=== PATIENT | female | born 1955 | race Caucasian/White ===

== ENCOUNTER 2019-01-29 11:17 | Outpatient (REF) | payer MEDICARE, BC, SELFPAY ==
[2019-01-29 13:28] LABS: ALT 40 U/L (12-78); AST 20 U/L (15-37); Albumin 4.1 g/dL (3.4-5.0); Alkaline Phosphatase 80 U/L (46-116); Anion Gap 11.1 mmol/L (3-11); BUN 18 mg/dL (7-18); Bilirubin, Total 0.3 mg/dL (0.2-1.0); CO2 25.9 mmol/L (21.0-32.0); CREATININE 0.85 mg/dL (0.55-1.02); Calcium 9.1 mg/dL (8.5-10.1); Chloride 102 mmol/L (98-107); Glucose 108 mg/dL (70-100); Potassium 4.6 mmol/L (3.5-5.1); Sodium 139 mmol/L (136-145); Total Protein 7.3 g/dL (6.4-8.2)
[2019-01-30 10:30] LABS: Hepatitis C Ab w Rflx HCV PCR Negative (NEGAT)
== END 2019-01-29 11:37 ==
LOC: NCHCN 11:17
PROVIDERS: Visit Provider Nurse Practitioner Family
DX: I10 Essential (primary) hypertension (principal); R73.9 Hyperglycemia, unspecified; R13.10 Dysphagia, unspecified; K30 Functional dyspepsia; Z11.59 Encounter for screening for other viral diseases
CPT/HCPCS: 80053; 86803

== ENCOUNTER 2019-01-29 11:54 | Outpatient (REF) | payer MEDICARE, BC, SELFPAY ==
--- NOTE | 2019-01-29 10:45 | PAPFT_PTH ---
PATIENT: Bev Villela LOC: [facility]#:[id number] AGE/SX: 63/F ROOM: RE01/29/[address]: Rena Hinds : 1955 BED: DIS: 01/29/2019 SPEC #: [id number] RECD: 01/30/19 12:54 STATUS: RAMA REQ #: [id number] SHYANNE: 01/29/19 10:[address]: Rena Hinds DEPT: [facility] Cytology RECD BY: Dianna Nguyen ENTERED: 01/30/19 12:55 SP TYPE: PAPFT OTHR DR: Kadi Rivas Tissues: 1 - CX/ENDOCX FOR PAP SMEARS Procedures: PAP THIN PREP/[facility] Screening Comments: [id number]
== END 2019-01-29 12:14 ==
LOC: NCHCN 11:54
PROVIDERS: Visit Provider Nurse Practitioner Family
DX: Z12.4 Encounter for screening for malignant neoplasm of cervix (principal); Z01.419 Encounter for gynecological examination (general) (routine) without abnormal findings
CPT/HCPCS: 88142

== ENCOUNTER 2019-02-19 00:52 | Outpatient (CLI) | payer MEDICARE, BC, SELFPAY ==
--- NOTE | 2019-02-19 15:00 | DI.DEXA_ITS ---
SYMPTOM/DIAGNOSIS: ASYMPTOMATIC POSTENOPAUSAL STATUS Z78.0 DEXA SCAN: Routine examination. Lateral films show no compression deformities. Evaluation of the left hip shows a total T-score of 0 and a Z-score of 1.3 Evaluation of the lumbar spine shows a total T-score of 0.6 and a Z-score of 2.4. These are within normal limits. No evidence of osteoporosis is seen.
--- NOTE | 2019-02-19 15:17 | DI.MAMMO_ITS ---
SYMPTOMS/DIAGNOSIS: SCREENING, Z12.39 MAMMOGRAMS: Mammograms were interpreted according to the usual protocol including computer analysis with CAD system, tomosynthesis and C view imaging. The breast tissue is of moderate radiodensity. There is no dominant mass. There are no suspicious calcifications and there has been no significant interval change when compared with the previous images. SUMMARY: No evidence of malignancy, category 1. Yearly screening mammography is recommended. Breast density category B. SA ASSESSMENT OF FINDINGS: Negative. Category 1. Patient will receive a letter notifying them of these results. BI-RADS category B. There are scattered areas of fibroglandular density.
== END 2019-02-19 01:12 ==
PROVIDERS: Visit Provider Nurse Practitioner Family
DX: Z12.31 Encounter for screening mammogram for malignant neoplasm of breast (principal); Z78.0 Asymptomatic menopausal state; Z13.820 Encounter for screening for osteoporosis
CPT/HCPCS: 77063; 77067; 77080

== ENCOUNTER 2019-07-10 07:13 | Day surgery (SDC) | payer MEDICARE, BC, SELFPAY ==
[2019-07-10 07:15] VITALS: BP 147/77; PULSE 102; RESP 18; TEMP 36.6; O2SAT 97
[2019-07-10] MEDS: Lactated Ringers 1,000 ML 80 ML IV (07:51)
[2019-07-10] MEDS: ceFAZolin 1 GM/50 ML BAG IVPB (09:09)
[2019-07-10] MEDS: Bupivacaine 0.5% Pres-Free 30 ML VIAL (09:26)
[2019-07-10] MEDS: Lidocaine 1% Pres-Free 5 ML VIAL ×2 (09:26→09:45)
--- NOTE | 2019-07-10 10:22 | W.PM.DSUDISC ---
Discharge Plan Disposition Patient Disposition: HOME Condition: Good Discharge Details Reason For Visit: correction right bunion and hammertoe 2nd digit rt Attending Provider: Isreal Argueta Primary Care Provider: Rena Hinds Home Meds and New Rx's Prescriptions: New ibuprofen 600 mg tablet 600 mg PO Q6H PRN (Reason: post op pain) Qty: 60 RF: 0 hydrocodone-acetaminophen 5-325 mg tablet 1 tab PO Q6H PRN (Reason: pain) Qty: 7 RF: 0 Continued acetaminophen [Tylenol] 325 MG tablet 650 mg PO TID PRNRF: 0 chlorthalidone 25 MG tablet 25 mg PO DAILY RF: 0 simvastatin 20 MG tablet 20 mg PO HS RF: 0 calcium carbonate 500 MG tablet,chewable 2 - 3 tab.chew PO HS PRNRF: 0 ibuprofen 200 MG tablet 800 mg PO TID PRNRF: 0 multivitamin 1 EACH capsule 1 cap PO DAILY RF: 0 mometasone [Elocon] 45 GM cream 1 applic Topical DAILY PRNRF: 0 hydrocodone-acetaminophen 1 TAB tablet 1 - 2 tab PO DIRECTED PRN (Reason: Pain) RF: 0 Discharge Instructions Activity:: Elevate Remove Dressings/Wound Care:: Do Not Remove Shower/Bathe:: Cover Diet:: Normal Diet Discharge Orders Discharge Orders: Discharge Order (Routine); Ordered 07/10/19 Ordered By: Isreal Argueta DS: Diagnosis Discharge Diagnosis (1) Hallux rigidus of right foot: Start date: 07/10/19 Start time: 10:23 Status: Acute
[2019-07-10 11:07] VITALS: BP 125/61; PULSE 69; RESP 16; TEMP 36.3; O2SAT 98
--- NOTE | 2019-07-10 12:15 | ROE_ITS ---
DATE OF PROCEDURE: July 10, 2019 PREOPERATIVE DIAGNOSIS: 1. End-stage degenerative arthritis right first MPJ. 2. Right second hammertoe deformity. POSTOPERATIVE DIAGNOSIS: Same. PROCEDURE: 1. Watson-type bunionectomy with .062 K-Wire fixation. 2. Arthroplasty right second toe with .045 K-Wire fixation. SURGEON: Jessika YoungPMegan. ANESTHESIA: General anesthesia with local block of the first and second rays utilizing 0.5% Marcaine and 1% Lidocaine plain, total 10 cc's of Marcaine and 5 cc's of Lidocaine. ANESTHESIA PROVIDER: Judy Harris CRNA OPERATIVE INDICATIONS: 64-year-old female with progressive pain associated with right hallux limitus -rigidus deformity and second digit hammertoe. Pain has been experienced in shoe gear, interfering w ith comfortable ambulation. Non-surgical treatments have failed to provide relief of symptoms. She understands risks and complications of surgery pertaining to pain, scarring, infection, stiffness of the joints, difficulty with the hardware. All questions have been answered. Informed consent has be en obtained. No promises made to the final outcome of surgery. REPORT OF OPERATION: Bev was brought to the operative suite and placed in the supine position, r ight foot prepped and draped in the usual sterile podiatric fashion. A time-out was performed; all m embers of the surgical team in agreement with the patient, procedures, allergies, etc. Attention was directed to the right foot, which had an ankle tourniquet inflated 250 mmHg and a 5 cm midline incision was placed over the first MPJ. The incision was deepened in controlled depth fashio n; hemostasis acquired with electrocautery. Dissection was carried down to the joint capsule. A antonio aidan midline incision was made just medial to the extensor hallucis longus tendon. The joint capsule was retracted medially and laterally. Extensive erosive changes are noted throughout the articular s urface of the first MPJ with dorsal, medial and lateral hyperostoses seen on both sides of the joint. This joint was completely destroyed. With power instrumentation approximately 1 cm of bone from th e base of the proximal phalanx was resected. The medial, lateral and dorsal exostoses around the fir st metatarsal head were then resected. All rough and bony edges were rasped smooth. The hallux was in a relaxed position and looked good. The digit was fixated with a .062 K-Wire in retrograde fashio n. Copious irrigation was performed. The joint capsule was repaired with simple interrupted suture #3-0 Vicryl. The subcutaneous repaired with simple interrupted suture #4-0 Vicryl. The skin was coa pted with continuous running sutures #4-0 Monocryl. Attention was now directed to the second toe where two converging, semi-elliptical incisions were harshil emily over the PIPJ. A skin wedge was removed and discarded. Soft tissue mobilization was performed. A transverse tenotomy capsulotomy performed at the PIPJ level with a #15 scalpel. The medial and la teral collaterals were released. The head of the proximal phalanx was delivered into the wound. Deg enerative changes of this joint were appreciated. With power instrumentation the head of the proxima l phalanx was resected at its surgical neck. All rough and bony edges were rasped smooth. Soft tiss ue dissection as then further performed to relax the digit at the MPJ. The wing and sling apparatus was released, both dorsally and plantarly. The digit was now rectus. A .045 K-Wire was used in retr ograde fashion to stabilize the second toe. The wound was copiously irrigated. The extensor tendon was repaired with #3-0 Vicryl end-to-end and the skin was coapted with simple interrupted suture #4-0 nylon. Xeroform, gauze fluff was applied to the incisions. Betadine ointment and gauze dressings o miguel the K-Wires. The tourniquet was released with vascularity returning to all toes immediately. Osmany sherman left the OR with vital signs stable, vascular status intact. She will be followed by me in the office next week. cc: Rena Hinds M.D.
== END 2019-07-10 11:21 | disposition home or self-care (01) ==
PROVIDERS: PCP Nurse Practitioner Family; Visit Provider Podiatrist
PROC: (CPT 28292; principal; 2019-07-10 08:15)
PROC: (CPT 28292; 2019-07-10 08:15)
DX: M20.41 Other hammer toe(s) (acquired), right foot (principal); M20.21 Hallux rigidus, right foot; M19.071 Primary osteoarthritis, right ankle and foot; I10 Essential (primary) hypertension; M21.611 Bunion of right foot
CPT/HCPCS: 28292; 28285; J0690; J1100; J1885; J2250; J2405

== ENCOUNTER 2019-10-16 06:12 | Day surgery (SDC) | payer MEDICARE, BC, SELFPAY ==
[2019-10-16 06:30] VITALS: BP 145/83; PULSE 73; RESP 12; TEMP 36.7; O2SAT 97
[2019-10-16] MEDS: Lactated Ringers 1,000 ML 80 ML IV (06:58)
--- NOTE | 2019-10-16 07:17 | W.PM.HP.N ---
Date of service: 10/16/19 Time of Service: 07:18 History of Present Illness History of Present Illness Chief Complaint: Painful left bunion deformity Narrative: 64-year-old female with progressive pain affecting the left bunion joint causing discomfort in shoe gear interfering with daily activities. She has had previous surgical intervention of this joint with subsequent progression of pain and deformity. She is seeking surgical relief as nonsurgical options have failed to provide improvement in symptomatology. [facility] Medical History Arthritis (Acute) Carotid atherosclerosis (Acute) Dysarthria (Acute) Dyspepsia (Acute) Eczema (Acute) High cholesterol (Chronic) Hypertension (Chronic) Low back pain (Acute) Obesity (Chronic) Pain in right toe(s) (Acute) Surgical History Colonoscopy - IV Sedation (04/20/16) History of arthroscopic knee surgery (Chronic) bilat knee arthoscopys, removal loose bodies left knee. History of foot surgery (Acute) left great toe repair x2 History of shoulder surgery (Chronic) removal neurofibro right shoulder Social History Smoking/Tobacco Use Status: Former Tobacco Use Quit Date: 09/09/79 Drug use: Never Substance use type: does not use Do you feel safe at home: Yes Do you feel safe in your relationship?: Yes Meds Home Medications and Allergies Home Medications Medication Instructions Recorded Confirmed Type acetaminophen [Tylenol] 650 mg PO TID PRN 09/28/13 10/16/19 History calcium carbonate 2 - 3 tab.chew PO HS PRN 09/28/13 10/16/19 History chlorthalidone 25 mg PO HS 09/28/13 10/16/19 History ibuprofen 800 mg PO TID PRN 09/28/13 10/16/19 History multivitamin 1 cap PO DAILY 09/28/13 10/16/19 History simvastatin 20 mg PO HS 09/28/13 10/16/19 History aspirin [Aspirin Low Dose] 81 mg PO DAILY 10/16/19 10/16/19 History Allergies Allergy/AdvReac Type Severity Reaction Status Date / Time codeine AdvReac Intermediate Nausea Unverified 10/16/19 06:25 Exam Narrative Exam Narrative: Proper appears in her usual state of health. Head is normocephalic Eyes PERRLA Hearing is adequate Uvula is midline and airway looks assessable Heart had regular rate and rhythm no gallops rubs or murmurs were detected Lung fish are clear Abdomen was soft and nontender, bowel sounds appreciated Peripheral pulses at the ankle are palpable minus 2 out of 4 bilaterally. Capillary fill time is under 3 seconds to all toes. No peripheral edema. Muscle groups of 5 out of 5 bilaterally. Skeletal exam reveals end-stage degenerative arthritis affecting the left first MPJ. There is marked sensitivity around the joint with significant loss of dorsiflexion with crepitance noted. The remaining forefoot joints were otherwise grossly unremarkable Neurologically toes are downgoing there are no focal deficits appreciated Impressions: Hallux limitus, end-stage arthrosis first MPJ left foot Plan: Bev will be brought to the OR for surgical intervention on the left first MPJ with a planned Watson type bunionectomy. Potential risks and complications have been disclosed with all questions been answered. She understands risks of pains, scarring, infection, shortening of the great toe, floating of the digit the potential for additional revisional procedures. Informed consents been obtained no promises made to final outcome of surgery. Results Last Vital Signs Temp 36.7 C 10/16/19 06:30 Pulse 73 10/16/19 06:30 Resp 12 10/16/19 06:30 BP 145/83 H 10/16/19 06:30 Pulse Ox 97 10/16/19 06:30
[2019-10-16] MEDS: ceFAZolin 1 GM/50 ML BAG IVPB (07:35)
[2019-10-16] MEDS: Bupivacaine 0.5% Pres-Free 30 ML VIAL (07:52)
[2019-10-16] MEDS: Lidocaine 1% Multi-Dose 50 ML VIAL (07:53)
[2019-10-16] MEDS: Dexamethasone 4 MG/ML VIAL (07:53)
--- NOTE | 2019-10-16 08:39 | PDOC.DSDIS_ITS ---
Discharge Plan Disposition Patient Disposition: HOME Condition: Good Discharge Details Reason For Visit: Correction symptomatic left hallux limitus deformi Attending Provider: Isreal rAgueta Primary Care Provider: Rena Hinds Home Meds and New Rx's Prescriptions: New hydrocodone-acetaminophen [[place]chenry] 5-325 mg tablet 1 tab PO Q6H PRN (Reason: pain) Qty: 7 RF: 0 Continued acetaminophen [Tylenol] 325 MG tablet 650 mg PO TID PRNRF: 0 chlorthalidone 25 MG tablet 25 mg PO HS RF: 0 simvastatin 20 MG tablet 20 mg PO HS RF: 0 calcium carbonate 500 MG tablet,chewable 2 - 3 tab.chew PO HS PRNRF: 0 ibuprofen 200 MG tablet 800 mg PO TID PRNRF: 0 multivitamin 1 EACH capsule 1 cap PO DAILY RF: 0 aspirin [Aspirin Low Dose] 81 mg Tablet,Delayed Release (Dr/Ec) 81 mg PO DAILY RF: 0 Discharge Instructions Activity:: Elevate Remove Dressings/Wound Care:: Do Not Remove Shower/Bathe:: Cover Diet:: Normal Diet Discharge Orders Discharge Orders: Discharge Order (Routine); Ordered 10/16/19 Ordered By: Isreal Argueta DS: Diagnosis Discharge Diagnosis (1) Hallux limitus of left foot: Status: Acute
[2019-10-16 09:26] VITALS: BP 151/81; PULSE 60; RESP 16; TEMP 36.4; O2SAT 95
--- NOTE | 2019-10-16 10:59 | ROE_ITS ---
DATE OF PROCEDURE: October 16, 2019 PREOPERATIVE DIAGNOSIS: Painful left hallux limitus deformity. POSTOPERATIVE DIAGNOSIS: Same. PROCEDURE: Watson bunionectomy with .062 K-Wire fixation. SURGEON: Isreal Argueta D.P.M. ANESTHESIA: IV General. ANESTHESIA PROVIDER: Lester Velazquez CRNA OPERATIVE INDICATIONS: 64-year-old female with progressive pain associated with endstage degenerativ e arthrosis of the first MPJ left foot. Nonoperative treatments have failed to provide sufficient re lief of symptoms. The patient understands risks and complications of surgery pertaining to pain, sca rring, infection, shortening of the toe, floating of the great toe, the potential for revisional proc edures. Informed consent has been obtained. No promises made to the final outcome of surgery. REPORT OF OPERATION: Bev was brought to the operative suite, placed in the supine position, wher e the left foot is prepped and draped in the usual sterile podiatric fashion. Anesthesia being obtai eric, the left foot was exsanguinated, a well-padded ankle tourniquet inflated to 250 mmHg. All of th is was performed after a time-out was performed with the surgical team. Attention was now directed to the first MPJ of the left foot where a dorsal incision was made over a previous cicatrix just medial to the EHL tendon. There was a fair amount of adhesion and scar tissue which was gently dissected and tissue planes recreated. Dissection was carried down to the joint ca psule. The capsule was incised dorsal medially and the tissue reflected medially and laterally. The joint line was visualized and severe arthrosis noted. There was minimal motion across the joint. T he joint was incised. There was no articular cartilage remaining. With a power saw approximately 1 cm of bone was resected from the base of the proximal phalanx. This was removed from the operative f ield. The medial, lateral and dorsal hyperostoses of the first metatarsal head were then resected. All rough and bony edges were rasped smooth. Copious irrigation was performed. Sufficient resection of bone was evaluated and I was satisfied. The great toe was fixated with a .062 K-Wire in retrogra de fashion. Once again the wound was copiously irrigated. The capsule was repaired with simple inte rrupted suture #3-0 Vicryl. The subcutaneous layer was repaired with simple interrupted suture #4-0 Vicryl and the skin was coapted with continuous running suture #4-0 Monocryl. Mastisol, half-inch St nimo-Strips applied. The first MPJ region was infused with 5 mg of dexamethasone phosphate. Xeroform , gauze fluff compression dressings were reapplied. The tourniquet was released at forty-five minute s with vascularity returning immediately to all toes. Bev left the OR with vital signs stable, v ascular status intact. She will be followed by me in the office next week.
== END 2019-10-16 09:55 | disposition home or self-care (01) ==
PROVIDERS: PCP Nurse Practitioner Family; Visit Provider Podiatrist
PROC: (CPT 28292; principal; 2019-10-16 07:30)
DX: M20.5X2 Other deformities of toe(s) (acquired), left foot (principal); M79.672 Pain in left foot
CPT/HCPCS: 28299; NC; J0131; J0690; J1100; J1200; J1885; J2001; J2250; J2405; J3010

== ENCOUNTER 2020-08-19 01:39 | Outpatient (CLI) | payer MEDICARE, BC, SELFPAY ==
--- NOTE | 2020-08-19 | DI.US_ITS ---
EXAM: US CAROTID CLINICAL HISTORY: F/U BILAT CAROTID ARTERY ATHEROSCLEROSIS, I65.23, HYPERTENSION. TECHNIQUE: Ultrasound carotids performed using grayscale, color-flow, and spectral Doppler imaging. COMPARISON: US CAROTID ULTRASOUND from 10/09/2017 FINDINGS: RIGHT CAROTID ARTERY: Plaque: Small focus of noncalcified plaque in the right common carotid bulb. Minimal plaque elsewher e. Velocity elevation: None. LEFT CAROTID ARTERY: Plaque: Minimal calcific plaque in the common carotid bulb.. Velocity elevation: None. VERTEBRAL ARTERIES: Antegrade flow. Measurements: R Bulb: 72.7cm/s PS / 19cm/s ED R CCA: 91.7cm/s PS / 23.1cm/s ED R ECA: 91.7cm/s PS / 18.2cm/s ED R ICA Prox: 62cm/s PS /17.4cm/s ED R ICA Mid: 104.9cm/s PS / 33.1cm/s ED R ICA Distal: 104.1cm/s PS /37.2cm/s ED R Vert: 52.1cm/s PS / 15.7cm/s ED R SVR: 1.1 R DVR: 1.54 L Bulb: 57.2cm/s PS /16.1cm/s ED L CCA: 86.8cm/s PS / 24.4cm/s ED L ECA: 71.3cm/s PS /12.9cm/s ED L ICA Prox:52.1cm/s PS / 18.6cm/s ED L ICA Mid: 78.4cm/sPS / 28.9cm/s ED L ICA Distal: 87.4cm/s PS / 32.8cm/s ED L Vert: 71.3cm/s PS / 21.2cm/s ED L SVR: 0.88 L DVR: 1.16 Incidental 12 millimeter right thyroid nodule was noted, having a benign spongiform appearance. IMPRESSION: Mild bilateral plaque in the common carotid bulbs. No evidence for hemodynamically significant carot id stenosis. Criteria for Carotid Stenosis: Normal: ICA PSV <125 cm/s no plaque or intimal thickening is visible. <50% stenosis: ICA PSV <125 cm/s and plaque or intimal thickening is visible. 50-69% stenosis: ICA PSV is 125-250 cm/s and plaque is visible. >70% stenosis to near occlusion: ICA PSV >250 cm/s with visible plaque and luminal narrowing. DATA REPOSITORY:
--- NOTE | 2020-08-19 12:46 | DI.MAMMO_ITS ---
EXAM: MAMMO SCREENING CLINICAL HISTORY: SCREENING,Z12.39 TECHNIQUE: Mammograms were interpreted according to the usual protocol including computer analysis w [employer] CAD system, tomosynthesis and C-view imaging. COMPARISON: 2010 through 2018 FINDINGS: The breasts are composed of heterogeneously dense fibroglandular densities, Breast Density category C . No suspicious masses or suspicious microcalcifications are seen. No skin thickening or abnormal axillary lymph nodes are seen. There has been no significant change from prior exams. IMPRESSION: BI-RADS Category 1, Negative mammogram. Yearly screening mammography is recommended. Breast Density Category C, heterogeneously Dense. The mammogram demonstrates the patient's breast tissue is dense. Dense breast tissue is very common a nd is not abnormal but dense breast tissue can make it harder to find cancer on a mammogram. Also, de nse breast tissue may increase breast cancer risk. This information about the result of the mammogram report was provided to the patient to raise their awareness. Use this report when you speak with the patient about their risks for breast cancer, which includes their family history. At that time, you may recommend additional screening tests (Ultrasound or MRI) as they might be useful based on their r isk. A negative radiographic report should not delay biopsy if a dominant or clinically suspicious mass is present. Up to ten percent of cancers are not identified on mammography. A negative report may reinforce clinical impression. Adenosis and dense breasts may obscure an underlying neoplasm. False positive reports average 6 to 10%.
== END 2020-08-19 01:59 ==
PROVIDERS: PCP Nurse Practitioner Family; Visit Provider Nurse Practitioner Family
DX: Z12.31 Encounter for screening mammogram for malignant neoplasm of breast (principal); I65.23 Occlusion and stenosis of bilateral carotid arteries; I10 Essential (primary) hypertension
CPT/HCPCS: 77063; 77067; 93880

== ENCOUNTER 2020-08-22 15:16 | Outpatient (REF) | payer MEDICARE, BC, SELFPAY ==
[2020-08-22 22:12] LABS: TSH 1.49 uIU/mL (0.36-3.74)
[2020-08-22 22:37] LABS: FREE T4 1.05 ng/dL (0.76-1.46)
[2020-08-23 17:05] LABS: T3,Free 4.6 pg/mL (2.8-5.3)
[2020-08-28 17:45] LABS: Thyroglobulin Antibody 19 U/mL (<=60); Thyroperoxidase Antibody 35 U/mL (<=60)
== END 2020-08-22 15:36 ==
LOC: NCHCN 15:16
PROVIDERS: PCP Nurse Practitioner Family; Visit Provider Nurse Practitioner Family
DX: E04.1 Nontoxic single thyroid nodule (principal)
CPT/HCPCS: 86376; 84439; 84443; 84481

== ENCOUNTER 2020-10-11 02:28 | Outpatient (CLI) | payer MEDICARE, BC, SELFPAY ==
[2020-10-12 12:34] LABS: COVID-19 RT-PCR UVMMC Result Negative (Negative)
== END 2020-10-11 02:29 | disposition home or self-care (01) ==
LOC: LBO 02:29
PROVIDERS: PCP Nurse Practitioner Family; Visit Provider Podiatrist
DX: Z11.52 Encounter for screening for COVID-19 (principal); Z01.818 Encounter for other preprocedural examination
CPT/HCPCS: U0003; U0005

== ENCOUNTER 2020-10-14 06:15 | Day surgery (SDC) | payer MEDICARE, BC, SELFPAY ==
[2020-10-14 06:22] VITALS: BP 131/68; PULSE 75; RESP 16; TEMP 36.6; O2SAT 97
[2020-10-14] MEDS: Lactated Ringers 1,000 ML 80 ML IV (06:55)
--- NOTE | 2020-10-14 07:04 | W.PM.HP.N ---
Date of service: 10/14/20 Time of Service: 07:04 History of Present Illness History of Present Illness Chief Complaint: Symptomatic left second hammertoe deformity Narrative: 65-year-old female with increasing pain associated with a hammertoe on the left second digit which is now interfering with comfortable shoe gear and ambulatory activities. Nonoperative treatments have failed to provide sufficient relief of symptoms. [facility] Medical History Arthritis Carotid atherosclerosis Dysarthria Dyspepsia Eczema High cholesterol Hypertension Low back pain Obesity Pain in right toe(s) Surgical History Colonoscopy - IV Sedation (04/20/16) History of arthroscopic knee surgery bilat knee arthoscopys, removal loose bodies left knee. History of foot surgery left great toe repair x2 History of shoulder surgery removal neurofibro right shoulder Social History Smoking/Tobacco Use Status: Former Tobacco Use Quit Date: 09/09/79 Smoking risk assessment performed?: Yes Drug use: Never Substance use type: does not use Do you feel safe at home: Yes Do you feel safe in your relationship?: Yes Meds Home Medications and Allergies Home Medications Medication Instructions Recorded Confirmed Type acetaminophen [Tylenol] 650 mg PO TID PRN 09/28/13 10/14/20 History calcium carbonate 2 - 3 tab.chew PO HS PRN 09/28/13 10/12/20 History ibuprofen 800 mg PO TID PRN 09/28/13 10/14/20 History multivitamin 1 cap PO DAILY 09/28/13 10/14/20 History simvastatin 20 mg PO HS 09/28/13 10/14/20 History aspirin [Aspirin Low Dose] 81 mg PO DAILY 10/16/19 10/14/20 History Tumeric 2,000 mg PO DAILY 10/12/20 10/14/20 History betamethasone dipropionate 1 applic TOPICAL BID 10/12/20 10/14/20 History cholecalciferol (vitamin D3) 50 mcg PO DAILY 10/12/20 10/14/20 History [Vitamin D3] famotidine 20 mg PO HS 10/12/20 10/14/20 History fluticasone propionate 1 spray INTRANASAL BID 10/12/20 10/14/20 History lisinopril 10 mg PO HS 10/12/20 10/14/20 History loratadine [Claritin] 10 mg PO DAILY 10/12/20 10/14/20 History Allergies Allergy/AdvReac Type Severity Reaction Status Date / Time codeine AdvReac Intermediate Nausea Unverified 10/14/20 06:39 Exam Narrative Exam Narrative: Very pleasant 65-year-old female in no acute distress for surgical repair of her left second hammertoe. Head is normocephalic Eyes PERRLA Hearing is adequate Uvula is midline Heart had regular rate and rhythm no gallops rubs or murmurs were detected Lung fish were clear Abdomen was soft, nontender, bowel sounds x4 Peripheral pulses are palpable at the ankle, no peripheral edema, capillary fill under 3 seconds to all toes Muscle groups are 5 out of 5 bilaterally Skeletal exam is remarkable for flexion contracture of the left second toe consistent with hammertoe. Pain is appreciated at the PIPJ dorsally as well as at the distal tip of the digit. The digit is semireducible. Neurologically she is grossly intact. Impressions: Symptomatic left second hammertoe Plan: Bev is being brought to the OR for surgical repair of her left second digit. She understands risk and complications of surgery pertaining to pain, scarring, infection, over or under correction of deformity with the potential for revisional procedures. No promises have been made to final outcome of surgery. Results Last Vital Signs Temp 36.6 C 10/14/20 06:22 Pulse 75 10/14/20 06:22 Resp 16 10/14/20 06:22 BP 131/68 10/14/20 06:22 Pulse Ox 97 10/14/20 06:22 COVID-19 Screening Have you, or household traveled for leisure in last 14 days?: No Had IN PERSON contact w/suspected or confirmed C-19 person: No
[2020-10-14] MEDS: ceFAZolin 1 GM/50 ML BAG IVPB (07:33)
[2020-10-14] MEDS: Bupivacaine 0.5% Pres-Free 30 ML VIAL (07:53)
[2020-10-14] MEDS: Lidocaine 1% Pres-Free 5 ML VIAL (07:53)
[2020-10-14] MEDS: Dexamethasone 4 MG/ML VIAL (08:20)
--- NOTE | 2020-10-14 08:24 | W.PM.DSUDISC ---
Discharge Plan Disposition Patient Disposition: HOME Condition: Good Discharge Details Reason For Visit: Correction left second hammertoe deformity Attending Provider: Isreal Argueta Primary Care Provider: Rena Hinds Home Meds and New Rx's Prescriptions: New ibuprofen 600 mg tablet 600 mg PO Q6H PRN (Reason: pain and inflammation) Qty: 60 RF: 0 hydrocodone-acetaminophen [[place]] 5-325 mg tablet 1 tab PO Q6H PRN (Reason: pain) Qty: 9 RF: 0 Continued acetaminophen [Tylenol] 325 MG tablet 650 mg PO TID PRNRF: 0 simvastatin 20 MG tablet 20 mg PO HS RF: 0 calcium carbonate 500 MG tablet,chewable 2 - 3 tab.chew PO HS PRNRF: 0 ibuprofen 200 MG tablet 800 mg PO TID PRNRF: 0 multivitamin 1 EACH capsule 1 cap PO DAILY RF: 0 aspirin [Aspirin Low Dose] 81 mg Tablet,Delayed Release (Dr/Ec) 81 mg PO DAILY RF: 0 betamethasone dipropionate 0.05 % cream 1 applic TOPICAL BID RF: 0 fluticasone propionate 50 mcg/actuation spray,suspension 1 spray INTRANASAL BID RF: 0 loratadine [Claritin] 10 mg Tablet 10 mg PO DAILY RF: 0 cholecalciferol (vitamin D3) [Vitamin D3] 50 mcg (2,000 unit) Tablet 50 mcg PO DAILY RF: 0 Tumeric 1,000 mg tablet 2,000 mg PO DAILY RF: 0 famotidine 20 mg tablet 20 mg PO HS RF: 0 lisinopril 10 mg tablet 10 mg PO HS RF: 0 Discharge Instructions Activity:: Elevate Remove Dressings/Wound Care:: Do Not Remove Shower/Bathe:: Cover Diet:: Normal Diet Discharge Orders Discharge Orders: Discharge Order (Routine); Ordered 10/14/20 Ordered By: Isreal Argueta DS: Diagnosis Discharge Diagnosis (1) Hammertoe of second toe of left foot: Status: Acute
--- NOTE | 2020-10-14 08:34 | ROE_ITS ---
Date of service: 10/14/20 Time of Service: 08:34 Operative Note Operative Note DATE OF PROCEDURE: 10/14/20 PRE-OP DIAGNOSIS: Hammertoe left second digit POST-OP DIAGNOSIS: same PROCEDURE: Peg and hole arthrodesis left second toe SURGEON: Isreal Argueta ANESTHESIA: CATARINO ESTIMATED BLOOD LOSS: 0 PATHOLOGY: none sent TOURNIQUET TIME: 24 COMPLICATIONS: None Patient was transported to: same day Patient's condition: stable Indications: 65-year-old female with pain associated with a left second hammertoe deformity. Pain is interfering with shoe gear, ambulatory activities and general enjoyment of life. Nonsurgical treatments have failed to provide sufficient relief of symptoms. She understands risk and complications of surgery pertaining to pain, scarring, swelling of the toe, malunion, nonunion, delayed union of the arthrodesis site with the potential for revisional procedures. All questions have been answered in detail. Informed consent has been obtained. Procedure Description: Pasquale was brought to the operative suite placed in the supine position with the left foot prepped and draped in the usual sterile podiatric fashion. Timeout was performed by protocol. The left second toe was anesthetized with 8 cc 50-50 mixture 1% lidocaine plain, 0.5% Marcaine plain digital block. The left foot was exsanguinated and a well-padded ankle tourniquet inflated to 250 mmHg. 2 converging semielliptical incisions were placed dorsally over the PIPJ. The skin wedge was excised. Soft tissue di ssection was performed isolating the extensor tendon dorsally. A transverse tenotomy, capsulotomy was performed at the PIPJ level with a #15 scalpel. The medial lateral collaterals were released and the head of the proximal phalanx delivered into the wound. With power instrumentation the cartilage was resected from both sides of the proximal interphalangeal joint. The head of the proximal phalanx was then reduced to a peg, and the base of the middle phalanx mottled for a whole to accept the proximal phalangeal PEG. Copious irrigation was performed at this time. A 0.062 K wire was placed in retrograde fashion through the second toe. The second toe was then mounted onto the peg of the proximal phalanx and the 0.062 K wire advanced. Good stability at the arthrodesis site was appreciated and position was acceptable. The wound was copiously irrigated a second time. The extensor tendon was shortened and sutured end-to-end with simple interrupted suture 3-0 Vicryl. The skin was coapted with simple interrupted suture 4-0 nylon. 4 mg of dexamethasone phosphate was then infused proximally into the second toe. Xeroform gauze fluff compression dressings were applied. Tourniquet was released at approximately 24 minutes vascularity returning immediately to all toes. Bev left the OR with sharp and sponge counts correct, capillary return normalized to all toes. She will be followed by myself in the office next week.
[2020-10-14 09:09] VITALS: BP 114/59; PULSE 56; RESP 18; TEMP 36.5; O2SAT 99
== END 2020-10-14 09:40 | disposition home or self-care (01) ==
PROVIDERS: PCP Nurse Practitioner Family; Visit Provider Podiatrist
PROC: (CPT 28285; principal; 2020-10-14 07:30)
DX: M20.42 Other hammer toe(s) (acquired), left foot (principal)
CPT/HCPCS: 28285; 99222; J0690; J1100; J1885; J2001

== ENCOUNTER 2021-01-26 09:02 | Outpatient (REF) | payer MEDICARE, BC, SELFPAY ==
[2021-01-26 13:58] LABS: ALT 34 U/L (14-59); AST 21 U/L (15-37); Alkaline Phosphatase 76 U/L (46-116); Anion Gap 10.4 mmol/L (3-11); BUN 21 mg/dL (7-18); Bilirubin, Total 0.4 mg/dL (0.2-1.0); CO2 25.6 mmol/L (21.0-32.0); CREATININE 0.8 mg/dL (0.55-1.02); Calculated LDL 96 mg/dL (<100); Chloride 104 mmol/L (98-107); Cholesterol 208 mg/dL (<200); Glucose 93 mg/dL (74-106); HDL Cholesterol 103 mg/dL (40-60); Potassium 4.2 mmol/L (3.5-5.1); Sodium 140 mmol/L (136-145); TSH (W/Ref FT4) 0.94 uIU/mL (0.36-3.74); Triglyceride 48 mg/dL (<150); Vitamin B12 468 pg/mL (193-986)
== END 2021-01-26 09:03 | disposition home or self-care (01) ==
LOC: NCHCN 09:02
PROVIDERS: PCP Nurse Practitioner Family; Visit Provider Nurse Practitioner Family
DX: I10 Essential (primary) hypertension (principal); R73.03 Prediabetes; K30 Functional dyspepsia; R00.2 Palpitations; R06.09 Other forms of dyspnea; E04.1 Nontoxic single thyroid nodule; I65.23 Occlusion and stenosis of bilateral carotid arteries; Z79.899 Other long term (current) drug therapy
CPT/HCPCS: 80053; 80061; 82607; 83735; 84443

== ENCOUNTER 2021-02-16 01:36 | Outpatient (CLI) | payer MEDICARE, BC, SELFPAY ==
--- NOTE | 2021-02-16 | DI.US_ITS ---
Exam(s) US THYROID EXAM: US THYROID CLINICAL HISTORY: THYROID NODULE, E04.1. TECHNIQUE: Ultrasound thyroid performed using standard protocol. COMPARISON: US US CAROTID from 08/19/2020 US US CAROTID from 08/19/2020 FINDINGS: ISTHMUS: 2 mm RIGHT LOBE: Size: 4.3 x 1.9 x 1.7 cm Echogenicity: Normal. Vascularity: Normal. Nodules: Stable 0.7 x 0.7 x 1.3 centimeter ovoid spongiform appearing nodule in the mid right lobe. LEFT LOBE: Size: 4.3 x 1.6 x 1.8 cm Echogenicity: Normal. Vascularity: Normal. Nodules: None. OTHER FINDINGS: None. IMPRESSION: Stable appearance of 1.3 cm spongiform nodule in the right lobe of the thyroid. TI-RADS Category 1. Benign. DATA REPOSITORY:
== END 2021-02-16 01:56 ==
PROVIDERS: PCP Nurse Practitioner Family; Visit Provider Nurse Practitioner Family
DX: E04.1 Nontoxic single thyroid nodule (principal)
CPT/HCPCS: 76536

== ENCOUNTER 2021-03-27 10:38 | Outpatient (CLI) | payer MEDICARE, BC, SELFPAY ==
--- NOTE | 2021-03-27 09:45 | DI.RAD_ITS ---
Exam(s) XR STANDING ALIGNMENT EXAM: XR STANDING ALIGNMENT CLINICAL HISTORY: pre op. TECHNIQUE: 2D digital imaging was performed. COMPARISON: No exams were available for comparison FINDINGS: There are advanced osteoarthritic degenerative changes both knees with ifud-au-syny apposition of med ial compartments. Lateral compartments exhibit preserved height but marginal osteophytes. Patella a ppear degenerative. Hips appear unremarkable SI joints unremarkable. Ankles unremarkable. IMPRESSION: DATA REPOSITORY: RADIATION DOSE DELIVERED:
--- NOTE | 2021-03-27 09:45 | DI.RAD_ITS ---
Exam(s) XR KNEE LT 1V EXAM: XR KNEE LT 1V CLINICAL HISTORY: pre op. TECHNIQUE: 2D digital imaging was performed. COMPARISON: CR from 12/08/2014 FINDINGS: Again noted are significant osteoarthritic degenerative changes left knee. Significantly increased w hen compared to December. Also increase in dystrophic calcification above the patella. IMPRESSION: DATA REPOSITORY: RADIATION DOSE DELIVERED:
== END 2021-03-27 10:39 | disposition home or self-care (01) ==
LOC: DIORS 13:28
PROVIDERS: PCP Nurse Practitioner Family; Referring Provider Nurse Practitioner Family; Visit Provider Student in an Organized Health Care Education/Training Program
DX: M17.12 Unilateral primary osteoarthritis, left knee; Z01.818 Encounter for other preprocedural examination
CPT/HCPCS: 99203; 73560; 77073

== ENCOUNTER → 2021-06-26 08:04 | Outpatient (BNVA) | payer MEDICARE, BC, SELFPAY | PROVIDERS: PCP Nurse Practitioner Family; Referring Provider Nurse Practitioner Family | DX: Z01.818 Encounter for other preprocedural examination (principal); M17.12 Unilateral primary osteoarthritis, left knee ==

== ENCOUNTER 2021-07-10 02:25 | Outpatient (CLI) | payer MEDICARE, BC, SELFPAY ==
[2021-07-10 11:08] LABS: Source Nasal/Nares
[2021-07-10 14:11] LABS: COVID-19 PCR Negative (Negative)
== END 2021-07-10 02:26 | disposition home or self-care (01) ==
LOC: LBO 02:26
PROVIDERS: PCP Nurse Practitioner Family; Visit Provider Student in an Organized Health Care Education/Training Program
DX: Z20.822 Contact with and (suspected) exposure to COVID-19 (principal)
CPT/HCPCS: 36415; 80048; 85027; 87635

== ENCOUNTER 2021-07-10 02:49 | Outpatient (CLI) | payer MEDICARE, BC, SELFPAY ==
[2021-07-10 09:35] LABS: HCT 41.1 % (36.0-46.0); MCH 28.1 pg (27.0-33.0); MCHC 31.6 % (32.0-36.0); MPV 8.6 fL (8.0-11.0); Platelet Count 273 10^3/uL (130-400); RBC 4.62 10^6/uL (3.93-5.22); RDW 12.7 % (11.7-14.6); RDW-SD 41.3 fL; WBC 4.25 10^3/uL (4.4-10.8)
[2021-07-10 10:51] LABS: Anion Gap 8.2 mmol/L (3-11); BUN 18 mg/dL (7-18); CO2 28.8 mmol/L (21.0-32.0); CREATININE 0.9 mg/dL (0.55-1.02); Calcium 8.9 mg/dL (8.5-10.1); Chloride 105 mmol/L (98-107); Glucose 93 mg/dL (74-106); Potassium 4.2 mmol/L (3.5-5.1); Sodium 142 mmol/L (136-145)
== END 2021-07-10 02:50 | disposition home or self-care (01) ==
LOC: LBO 02:50
PROVIDERS: PCP Nurse Practitioner Family; Visit Provider Student in an Organized Health Care Education/Training Program
DX: Z20.822 Contact with and (suspected) exposure to COVID-19 (principal); Z01.818 Encounter for other preprocedural examination; M17.12 Unilateral primary osteoarthritis, left knee
CPT/HCPCS: 36415; 80048; 85027

== ENCOUNTER 2021-07-11 05:59 | Day surgery (SDC) | payer MEDICARE, BC, SELFPAY ==
[2021-07-11] VITALS (10 sets, daily range): BP systolic 114–143; BP diastolic 52–93; PULSE 53–78; RESP 13–16; TEMP 36.1–36.7; O2SAT 95–100; BMI 31.1
[2021-07-11] MEDS: Acetaminophen 500 MG TAB 1000 MG PO (06:39)
[2021-07-11] MEDS: Gabapentin 300 MG CAP PO (06:39)
[2021-07-11] MEDS: Celecoxib 200 MG CAP 400 MG PO (06:39)
[2021-07-11] MEDS: Lactated Ringers 1,000 ML 80 ML IV (06:50)
--- NOTE | 2021-07-11 06:58 | W.ANESPRE ---
General Info Date of Service Date Performed: 07/11/21 Height: 5 ft 5.5 in Weight: 86.1 kg Body Mass Index (BMI): 31.1 Surgical Procedure: Operation Date: 07/11/21 07:40 Proposed Procedures Side Surgeon p Knee Total Arthroplasty Left Beck Gutiérrez MD Meds Allergies and Home Medications Allergies Allergy/AdvReac Type Severity Reaction Status Date / Time codeine AdvReac Intermediate Nausea Unverified 07/11/21 06:19 Home Medication Medication Instructions Recorded multivitamin 1 cap PO DAILY 09/28/13 simvastatin 20 mg PO HS 09/28/13 Tumeric 2,000 mg PO DAILY 10/12/20 betamethasone dipropionate 1 applic TOPICAL BID 10/12/20 cholecalciferol (vitamin D3) 50 mcg PO DAILY 10/12/20 [Vitamin D3] famotidine 20 mg PO HS 10/12/20 fluticasone propionate 1 spray INTRANASAL BID 10/12/20 lisinopril 10 mg PO HS 10/12/20 loratadine [Claritin] 10 mg PO DAILY 10/12/20 acetaminophen [Tylenol] 650 mg PO Q6H PRN #0 tab 07/11/21 aspirin 81 mg PO BID #60 tab 07/11/21 celecoxib 200 mg PO BID PRN #60 cap 07/11/21 docusate sodium [Colace] 100 mg PO BID PRN #10 cap 07/11/21 gabapentin 300 mg PO QHS #7 cap 07/11/21 oxycodone 5 mg PO Q4H #15 tab 07/11/21 Current Visit Medications: Current Medications Generic Name Dose Route Start Last Admin Trade Name Freq PRN Reason Stop Dose Admin Acetaminophen 1,000 mg 07/11/21 06:00 07/11/21 06:39 Acetaminophen 500 Mg Tab PO 07/11/21 16:00 1,000 mg PREOP FADI Administration Celecoxib 400 mg 07/11/21 06:00 07/11/21 06:39 Celecoxib 200 Mg Cap PO 07/11/21 16:00 400 mg PREOP FADI Administration Gabapentin 300 mg 07/11/21 06:00 07/11/21 06:39 Gabapentin 300 Mg Cap PO 07/11/21 16:00 300 mg PREOP FADI Administration Tranexamic Acid 1,000 mg/ 60 mls @ 360 mls/hr 07/11/21 06:00 Sodium Chloride IVPB 07/11/21 16:00 PREOP FADI Tranexamic Acid 1,000 mg/ 60 mls @ 360 mls/hr 07/11/21 06:00 Sodium Chloride IVPB 07/11/21 16:00 DIRECTED FADI Ringer's Solution 1,000 mls @ 80 mls/hr 07/11/21 06:00 07/11/21 06:50 IV 08/09/21 23:59 80 mls/hr INFUSION FADI Administration Cefazolin Sodium/Dextrose 2 gm in 50 mls @ 100 mls/hr 07/11/21 06:00 Ancef Duplex IVPB 08/09/21 23:59 PREOP FADI IV Miscellaneous Supplies 1 each 07/11/21 06:00 Iv Access IV 08/09/21 23:59 DIRECTED FDAI Sodium Chloride 0 ml 07/11/21 06:00 Normal Saline Flush 10 Ml Syr IV 08/09/21 23:59 PRN PRN Sodium Chloride 0 ml 07/11/21 06:00 Normal Saline 10 Ml Vial IJ 08/09/21 23:59 DIRECTED PRN Sterile Water 0 ml 07/11/21 06:00 Water,Injection,Sterile 10 Ml Vial IJ 08/09/21 23:59 DIRECTED PRN PFSH Active Problems Active Problems: Problem Status Onset Code Screening for colorectal cancer Z12.11, Z12.12 Hallux rigidus of right foot M20.21 Hallux limitus of left foot M20.5X2 Hammertoe of second toe of left foot M20.42 Osteoarthritis of knee 10/15/13 M17.10 Osteoarthritis of left knee M17.12 Medical History Medical History Arthritis Carotid atherosclerosis Pt. f/u with PCP and follows up with US Dysarthria Dyspepsia Eczema High cholesterol Hypertension Low back pain Obesity Pain in right toe(s) Thyroid nodule Surgical History Surgical History Colonoscopy - IV Sedation (04/20/16) History of arthroscopic knee surgery bilat knee arthoscopys, removal loose bodies left knee. History of foot surgery left great toe repair x2 History of shoulder surgery removal neurofibro right shoulder Tobacco Smoking/Tobacco Use Status: Former Tobacco Use Alcohol Alcohol Intake: current Alcohol intake frequency: a few times a week Alcohol type: wine Substance Use Substance use: Never Substance use type: does not use Vital Signs and Lab Results Vital Signs Most Recent Vital Signs in EMR: Most Recent Vital Signs Temp Pulse Resp BP Pulse Ox 36.7 C 75 16 143/93 H 98 07/11/21 06:26 07/11/21 06:26 07/11/21 06:26 07/11/21 06:26 07/11/21 06:26 Lab Results Blood Type / Crossmatch: No Data to Display Complete Blood Count: White Blood Count 4.25 10^3/uL (4.4-10.8) L 07/10/21 09:25 07/10/21 Red Blood Count 4.62 10^6/uL (3.93-5.22) 07/10/21 09:25 07/10/21 Hemoglobin 13.0 g/dL (11.2-15.7) 07/10/21 09:25 07/10/21 Hematocrit 41.1 % (36.0-46.0) 07/10/21 09:25 07/10/21 Platelet Count 273 10^3/uL (130-400) 07/10/21 09:25 07/10/21 Complete Metabolic Panel: Sodium Level 142 mmol/L (136-145) 07/10/21 09:25 07/10/21 Potassium Level 4.2 mmol/L (3.5-5.1) 07/10/21 09:25 07/10/21 Chloride Level 105 mmol/L (98-107) 07/10/21 09:25 07/10/21 Carbon Dioxide Level 28.8 mmol/L (21.0-32.0) 07/10/21 09:25 07/10/21 Blood Urea Nitrogen 18 mg/dL (7-18) 07/10/21 09:25 07/10/21 Creatinine 0.9 mg/dL (0.55-1.02) 07/10/21 09:25 07/10/21 Estimated GFR/1.73 m2 >= 60.00 (mL/min/1.73m2) 07/10/21 09:25 07/10/21 Calcium Level 8.9 mg/dL (8.5-10.1) 07/10/21 09:25 07/10/21 Glucose Level 93 mg/dL (74-106) 07/10/21 09:25 07/10/21 Liver Function Panel: No Data to Display Coagulation Panel: No Data to Display Cardiac Panel: No Data to Display Arterial Blood Gas: No Data to Display Venous Blood Gas: No Data to Display Pancreas Panel: No Data to Display Thyroid Panel: No Data to Display Infectious Disease: Coronavirus (COVID-19)(PCR) Negative (Negative) 07/10/21 10:15 07/10/21 Coronavirus 2019 Source Nasal/Nares 07/10/21 10:15 07/10/21 Blood Cultures: No Data to Display Toxicology Panel: No Data to Display Imaging and Studies Imaging and Studies Carotid Artery Summary:: Date of Exam: 08/19/20ex: F Admission Date: 08/19/20 : 1955 Age: 65 Exam(s) a US:US carotid FINDINGS: RIGHT CAROTID ARTERY: Plaque: Small focus of noncalcified plaque in the right common carotid bulb. Minimal plaque elsewhere. Velocity elevation: None. LEFT CAROTID ARTERY: Plaque: Minimal calcific plaque in the common carotid bulb.. Velocity elevation: None. VERTEBRAL ARTERIES: Antegrade flow. IMPRESSION: Mild bilateral plaque in the common carotid bulbs. No evidence for hemodynamically significant carotid stenosis. Criteria for Carotid Stenosis: Normal: ICA PSV <125 cm/s no plaque or intimal thickening is visible. <50% stenosis: ICA PSV <125 cm/s and plaque or intimal thickening is visible. 50-69% stenosis: ICA PSV is 125-250 cm/s and plaque is visible. >70% stenosis to near occlusion: ICA PSV >250 cm/s with visible plaque and luminal narrowing. Anesthesia Assessment and Plan Anesthesia History Personal History: No History of Anesthesia Complications Family History: No Family History of Anesthesia Complications Exercise Tolerance Exercise Tolerance: Metabolic Equivalents>4 Pertinent Negatives Pertinent Negatives: No Symptoms of GERD Cardiac & Pulmonary Exam Cardiac Exam: Normal S1/S2 Heart Sounds Pulmonary Exam: Clear Bilateral Breath Sounds Airway Exam Known Difficult Airway: No Mallampati Class: 2 Mouth Opening: Normal (> 3cm) Thyromental Distance: Greater than 3 cm Neck Range of Motion: Full ROM Neck Circumference: Normal Teeth Condition: Normal Dentition ASA Classification ASA Score: ASA 2 Emergency Case?: No NPO Status NPO Status: NPO Clears >2 hours, Solids >8 hours Anesthesia Plan Resuscitation Status: Full Code Anesthesia Technique: Spinal Anesthesia Airway Planned: Natural Airway Monitors Used: Standard Monitors
--- NOTE | 2021-07-11 07:06 | PDOC.DSDIS_ITS ---
Discharge Plan Disposition Patient Disposition: HOME Condition: Good Discharge Details Reason For Visit: Left Knee DJD Attending Provider: Beck Gutiérrez Primary Care Provider: Rena Hinds Home Meds and New Rx's Prescriptions: New celecoxib 200 mg capsule 200 mg PO BID PRN (Reason: pain) Qty: 60 RF: 1 docusate sodium [Colace] 100 mg capsule 100 mg PO BID PRNQty: 10 RF: 0 gabapentin 300 mg capsule 300 mg PO QHS Qty: 7 RF: 0 oxycodone 5 mg tablet 5 mg PO Q4H Qty: 15 RF: 0 aspirin 81 mg tablet,delayed release (DR/EC) 81 mg PO BID Qty: 60 RF: 0 Continued simvastatin 20 MG tablet 20 mg PO HS RF: 0 multivitamin 1 EACH capsule 1 cap PO DAILY RF: 0 betamethasone dipropionate 0.05 % cream 1 applic TOPICAL BID RF: 0 fluticasone propionate 50 mcg/actuation spray,suspension 1 spray INTRANASAL BID RF: 0 loratadine [Claritin] 10 mg Tablet 10 mg PO DAILY RF: 0 cholecalciferol (vitamin D3) [Vitamin D3] 50 mcg (2,000 unit) Tablet 50 mcg PO DAILY RF: 0 Tumeric 1,000 mg tablet 2,000 mg PO DAILY RF: 0 famotidine 20 mg tablet 20 mg PO HS RF: 0 lisinopril 10 mg tablet 10 mg PO HS RF: 0 Changed acetaminophen [Tylenol] 325 MG tablet 650 mg PO Q6H PRNQty: 0 RF: 0 Discontinued ibuprofen 200 MG tablet 800 mg PO TID PRNRF: 0 aspirin [Aspirin Low Dose] 81 mg Tablet,Delayed Release (Dr/Ec) 81 mg PO DAILY RF: 0 ibuprofen 600 mg tablet 600 mg PO Q6H PRN (Reason: pain and inflammation) Qty: 60 RF: 0 Discharge Instructions Additional Instructions: Total Knee Discharge Instructions Activity: The most important activity is to walk. You should try to take short walks a few times a day. It is important that when resting you work on keeping the knee straight. Avoid putting a pillow behind the knee as this will encourage flexion. Work on range of motion exercises as provided by Physical Therapy. If you have the [employer] bike coming, this will be your primary tool for exercise after the knee replacement. You should use it and follow the directions for the knee. Utilize the other exercises sparingly based on your symptoms. - Start outpatient physical therapy around 2 weeks. - You should wear the GABRIELLA hose on both legs for 2 weeks. You may remove these at night. You may also use any compression sock in place of the GABRIELLA hose. - Utilize [employer] to review exercises, see videos on exercises and obtain basic information pertaining to your surgery and your recovery. Dressing: Remove the Spencer wrap by 2 days after your surgery and put on the GABRIELLA stocking given to you from the hospital. Keep the surgical dressing (underneath the SPENCER wrap) in place for at least one week. After the first week it may be removed and replaced with light gauze and tape or nothing. The wound and dressing may get wet after 3 days but avoid soaking the dressing or otherwise it will need to be changed. Many people prefer covering the dressing with cling wrap (saran wrap) to minimize it from getting soaked. If it gets wet, just pat dry. If it starts to peel off then it will need to be changed. Medications: - You should take Tylenol and anti-inflammatory Celebrex as your primary pain control medications. If the Celebrex is too expensive or not covered, please call the office for another alternative (Advil/Ibuprofen or Naproxen/Aleve) - You have been prescribed a stronger pain medication Oxycodone for breakthrough pain, take as needed as prescribed. - You should continue your stomach acid reduction agent Famotidine to help reduce stomach acid and reflux. - You have been prescribed Gabapentin to take at night for restlessness and nerve pain. - You will be taking Aspirin 81mg twice a day for DVT prevention unless instructed otherwise. - If you have constipation you should take Colace or Miralax (both [id number]). It takes most people 3-4 days to have a bowel movement. Follow-up: 2 weeks If you have any acute concerns or questions, please do not hesitate to contact the office at [phone]. You may contact Dr. Gutiérrez with any questions after hours through the hospital at [phone] or on his cell phone at [phone]. Referrals: Beck Gutiérrez MD [ [facility] STAFF PHYSICIAN] - Equipment/Supplies: Walker Activity:: Elevate Remove Dressings/Wound Care:: Do Not Remove Shower/Bathe:: 72 hours Diet:: As Tolerated Discharge Orders Discharge Orders: Discharge Order (Routine); Ordered 07/11/21 Ordered By: Beck Gutiérrez DS: Diagnosis Discharge Diagnosis (1) Osteoarthritis of left knee: Status: Acute
[2021-07-11] MEDS: ceFAZolin 2 GM/50 ML BAG IVPB (07:45)
--- NOTE | 2021-07-11 08:47 | W.ANESNERVE ---
Nerve Block Single Injection Procedure Date and Time Date Performed: 07/11/21 Procedure Start: 07:15 Location Where Procedure Performed Procedure Location: Day Surgery Unit Reason Performed: Postoperative Analgesia Requesting Provider: Beck Gutiérrez Timeout Performed Timeout Performed: Yes Monitoring Used ECG, Blood Pressure, SpO2 and See EMR for corresponding vital signs Sterility Sterility: Hand Hygiene, Surgical Cap, Surgical Mask, Sterile Gloves and Chlorhexidine Sedation Given During Procedure Sedation Given (Indicate Dose Given): Versed IV Dose:: 1 mg Patient Mental Status Patient Mental Status: Sedate with meaningful communication Nerve Block 1st Nerve Block: Laterality: Left Block Type: Adductor Canal Needle / Catheter Used: 100mm SonoPlex II Local Anesthetic Bolus (Indicate Dose Given): Lidocaine used for local infiltration of skin, Injected in 3-5ml increments after negative blood aspiration and Bupivacaine 0.25% Dose:: 20 mL Additives (Indicate Dose Given): None Ultrasound: Sterile probe cover and gel used Ultrasound Image Saved?: Yes Nerve Stimulator: Not Used Paresthesia: None Procedure Tolerated: No Complications and Patient tolerated well Procedure Outcome: Successful Performed By: Juliann Ahumada Supervised By: Yohan Steiner
[2021-07-11] MEDS: Bupivacaine 0.25% Pres-Free 30 ML VIAL (08:56)
[2021-07-11] MEDS: Ketorolac 30 MG/ML VIAL (08:56)
[2021-07-11] MEDS: Normal Saline 20 ML VIAL (08:56)
--- NOTE | 2021-07-11 09:20 | ROE_ITS ---
Date of service: 07/11/21 Time of Service: 09:20 Operative Note Operative Note DATE OF PROCEDURE: 07/11/21 PRE-OP DIAGNOSIS: Left Knee Osteoarthritis POST-OP DIAGNOSIS: same PROCEDURE: Left Total Knee Replacement SURGEON: Beck Gutiérrez HAND FILER BALANCE WHEEL: Germania Castillo ANESTHESIA TYPE: Spinal Refer to Anesthesia Record ESTIMATED BLOOD LOSS: 150 PATHOLOGY: none sent TOURNIQUET TIME: 0 COMPLICATIONS: None Patient was transported to: PACU Patient's condition: stable Implants: 1. Depuy Attune Cruciate Retaining Cementless Femoral Component, Size 5 2. Depuy Attune Rotating Platform Cementless Tibial Component, Size 5 3. Depuy Attune 5x6mm CR,RP Poly 4. Depuy Attune Patellar Component, Size 35 Indications: I have seen Bev in clinic for symptoms of knee arthritis, confirmed with radiographic findings. She has exhausted nonoperative methods and was having significant limitations in daily function and desired better function and less pain. I discussed the technical details of a knee replacement. I explained the risks of the procedure to include, but not limited to, bleeding, infection, pain, stiffness, fracture, damage to nerves and vessels, damage to muscles and tendons, loosening, need for repeat procedure, blood clot and cardiopulmonary demise. Despite these risks, Bev elected to proceed. Findings: There was significant signs of arthritis throughout the knee in all 3 compartments with large osteophytes throughout. Procedure Description: Bev was greeted in the preoperative holding area where the correct side was identified and marked. The consent was reviewed with the patient and signed. The history and physical was updated. All questions were answered. Preoperative medications were administered: Acetaminophen 1000mg, Celebrex 400mg, and Gabapentin 300mg. An adductor canal block was then administered by the anesthesia team in the PACU. Bev was taken back to the operating room. A spinal anesthestic was then administered. The patient was placed into the supine position on the operating room table. A nonsterile tourniquet was placed high onto the leg but only used for cementing. Posts were placed for positioning during the procedure. All bony prominences were well padded. Prophylactic antibiotics in the form of Cefazolin were administered. 1g of Tranxemic Acid was given intravenously within 30 minutes of incision. The left leg was then prepped with Chloraprep and draped in a standard fashion with impervious stockinette. A second prep with Chloraprep was performed prior to application of Iodine impregnated skin protection. A timeout to confirm correct identity, side and site, procedure, allergies, anesthesia, and medical concerns was performed. With the knee in some flexion, a midline incision was made overlying the knee. Full thickness skin flaps were raised once the extensor mechanism was encountered. These were raised medially and laterally. Any bleeding was controlled with electrocautery. Once the extensor mechanism was fully exposed, a medial parapatellar arthrotomy was performed in a flexed position. All bleeding from the arthrotomy and the geniculate arteries was coagulated. A medial subperiosteal peel was performed with electrocautery to the midcoronal plane. The fat pad was removed while keeping the patellar tendon protected. The anterior distal femur synovium was removed for later visualization. The ACL and PCL were resected and the anterior horn of the lateral meniscus was transected. The knee was then flexed with the patella everted. Large osteophytes from the tibia were removed. Large osteophytes from the femur were removed. Using a step drill, and based on preoperative templating, the femoral canal was entered. This was done with a step drill without any difficulty. The intramedullary distal femoral cut guide was inserted, set to a 5 degree valgus cut and 9mm cut thickness. The distal femoral cut guide was then held in position and pinned. With the soft tissues protected, the distal cut was performed. This was passed over a few times to ensure a planar cut. I then turned attention to the tibia. The extramedullary guide was placed onto the leg. The distal aspect was slid medial to adjust for position of center of ankle and stay in line with shaft of the tibia. Approximately 3-5 degrees of posterior slope was kept in the proximal cutting guide. The center of the guide was aligned with the PCL. The stylus was used to assess cut thickness. The medial side, most involved side, was set for a 4mm cut. This was then held in position and pinned into place with 2 additional pins and a cross pin for stability. The medial and lateral collateral ligaments were protected and the cut was performed. With this comple lakisha, it was assessed and noted to be of appropriate dimensions. The guide was removed. A spacer block was inserted and the knee was brought into extension. The 6mm spacer block provided full extension, without hyperextension and with stability of both the medial and lateral collateral ligaments was assessed. The pins from the femur and the tibia were then removed. The distal femur was then sized. The anterior stylus was placed onto the lateral ridge of the anterior femur. This indicated a size 5 femur. The external rotation of the guide was adjusted to 3 degrees to match the epicondyla r axis, perpendicular to Bipin?s line. The 4-in-1 cutting guide was the placed. The posterior medial femur cut was evaluated and appeared of good thickness. The spacer block was inserted underneath the cutting guide and stability was confirmed in 90 degrees of flexion. An brenden wing was used to confirm appropriate position of the anterior cut to avoid notching. This cutting guide was ensured to be flush on the cut surface and then pinned into place with headed pins. While protecting the soft tissues, quad tendon, and collateral ligaments, the anterior and posterior cuts were performed with a saw. The central two pins were removed and the posterior and anterior chamfers were cut next. The notch-cutting guide was placed. This was pinned to lateralize the femoral component as much as possible while keeping it flush on the cut surface. This was then pinned into position. A reciprocating saw was used to make the notch cut. A rasp smoothed the cut surfaces. The medial and lateral menisci were removed. A trial femoral component was then inserted, impacted down to the cut surfaces, and the lug holes were drilled. A provisional trial tibial component was placed and the knee was brought through range of motion. There was noted to be excellent extension and flexion. There was no significant instability. The patella was tracking without thumbs. A size 6mm polyethylene component provided the best range of motion and stability with less than 2mm gapping with medial and lateral stress and full extension without significant hyperextension. The tibial cut surface was fully exposed. The tibia was then sized as a 5. The tibia had been previously marked during trialing to correspond to the center of the tibial component to help with rotation. The trial was aligned to this caro, approximately rotated to the medial 1/3rd of the tibial tubercle. The trial was pinned into place. The tibia was prepared with a reamer and a keel punch and lug holes. The knee was then brought into extension and the patella was measured as 22mm. Using the patellar clamp and cut guide, this was resected to a flat surface with at least 13mm of thickness remaining. The size 35 patella fit the best. This was oriented and then clamped into position. The lugs were drilled. The trial components were removed. The final components were opened on the back table. The periosteal and capsular tissues, especially posteriorly, around the knee were then systematically injected with a periarticular cocktail consisting of 50cc 0.25% Marcaine, 30mg Ketorolac, 20cc of Exparal and 50cc of injectable saline. The knee was thoroughly irrigated with a pulse lavage and dried. Irrisept was also used to irrigate the tissues. On the back table, with the implants opened, the cement was mixed. One batch of high viscosity cement was prepared with vacuum assistance. After the cement was ready a small amount was placed on the cut surface of the patella and the patellar button was clamped into position and held. While the cement was hardening, the cementless knee components were placed. Starting with the tibial component, the tibia was subluxed anteriorly and the lug holes of the component were lined up. The tibia was then impacted with an impactor and mallet until the tibial component was in contact with the tibia. The final polyethylene component was inserted. Then, the femoral component was inserted. The lug holes were aligned and the component was impacted into position. The knee was irrigated with Irrisept chlorhexadine solution. This was allowed to sit in the knee for 3 minutes. After the cement had finally cured, approximately 15min, the clamp was removed from the patella and the knee was taken through range of motion. The patella was tracking with a no-thumbs technique. The capsule was then reapproximated with a No. 1 Vicryl at multiple locations. The capsule was finally closed with a No. 2 Stratafix, barbed suture. The second dosing of 1g TXA was started. Deep tissues were then reapproximated with 0 Vicryl and 2-0 Vicryl. The skin was closed with a running 3-0 Monocryl in a subcuticular fashion. This was reinforced with skin glue. A Mepilex silver dressing was applied along with a [id number] JOSHUA wrap. A CryoCuff was applied. Bev was transferred to the hospital bed without difficulty an suffering no apparent complication. Bev has a good prognosis. Physical therapy will start today and without restrictions, weight-bearing as tolerated. Aspirin 81mg BID will be used for DVT prophylaxis.
--- NOTE | 2021-07-11 10:38 | W.ANESPOSTOP ---
Postoperative Evaluation Date, Time and Location Date Performed: 07/11/21 Time Performed: 10:39 Patient Location: Day Surgery Unit Vital Signs Most Recent Imported Vital Signs: Most Recent Vital Signs Temp Pulse Resp BP Pulse Ox 36.2 C L 55 L 14 126/60 100 07/11/21 10:18 07/11/21 10:18 07/11/21 10:18 07/11/21 10:18 07/11/21 10:18 Pain Score Most Recent Pain Score: Most Recent Pain Score Pain Level 0 07/11/21 10:18 Assessment Mental Status: Awake (Alert & Oriented to Patient Baseline) Airway and Respiratory Function: Patent airway with normal (patient baseline) respiratory exam Cardiovascular Function: Hemodynamically Stable Hydration Status: Adequately Hydrated Nausea & Vomiting: No Nausea or Vomiting Pain: Pain is tolerable per patient Peripheral Nerve Block: Regional nerve block not resolved at time of post operative discharge
--- NOTE | 2021-07-11 12:05 | IN_ITS ---
Date of service: 07/11/21 Time of Service: 12:05 PT Notes Visit Reasons: Left Knee DJD Physical Therapy Day Surgery Initial Evaluation Date: 07/11/2021 Referring Doctor: Beck Gutiérrez MD PT Orders: PT CONSULT: Status post Ortho surgery Precautions: WBAT on left LE with AD. Patient Profile/Admitting Diagnosis: Bev is a 66-year-old female with degenerative joint disease of the left knee and is status post left total knee arthroplasty on postoperative day 0. PMHX: Medical History Arthritis Carotid atherosclerosis Dysarthria Dyspepsia Eczema High cholesterol Hypertension Low back pain Obesity Pain in right toe(s) Surgical History Colonoscopy - IV Sedation (04/20/16) History of arthroscopic knee surgery bilat knee arthoscopys, removal loose bodies left knee. History of foot surgery left great toe repair x2 History of shoulder surgery removal neurofibro right shoulder Social History/Home Situation: Lives alone in a private home with three steps to enter without rails but with meadows on both sides that she can hold onto. Independent with all aspects of ADLs prior to surgery. Equipment Owned/DME: [facility] Subjective: Pleasant and cooperative. Denies chest pain, headache, and dizziness throughout session. States that she will be receiving the [email or web address] tech device when she gets home and that she also will have the [employer] zenia that will help with all her post op exercises. Objective: General Observation: JOSHUA wrap to L LE. Cryocuff to L knee. Nurse Ivory ensured that patient was ready to be mobilized off of bed by the time Pt arrived. Mental Status: Alert and oriented x 4 Pain: Denies ROM: Right Lower Extremity: Hip flexion WFL. Hip abduction WFL. Knee flexion 0 to 95 degrees. Knee extension 95 degrees to 0. Ankle dorsiflexion WFL. Ankle plantarflexion WFL. Left Lower Extremity: Hip flexion WFL. Hip abduction WFL. Knee flexion WFL. Ankle dorsiflexion WFL. Ankle plantarflexion WFL. Strength: Right Lower Extremity: Hip flexors 5/5. Hip abductors 5/5. Knee flexors 5/5. Knee extensors 5/5. Ankle dorsiflexors 5/5. Ankle plantarflexors 5/5. Left Lower Extremity:Hip flexors 5/5. Hip abductors 5/5. Knee flexors 3-/5. Knee extensors 4-/5. Ankle dorsiflexors 5/5. Ankle plantarflexors 5/5. Sensation: Intact as to pain and light pressure in bilateral lower extremities. Bed Mobility/Transfers: Supine to sit supervision Sit to stand contact-guard assist Stand to sit standby assist Bed to chair standby assist Gait: Instructed patient with level surface ambulation using front-wheeled walker for about 100 feet with wheelchair follow of nurse Ivory. Step through gait pattern. Minimal cues given for increased flexion at the left knee during swing phase. Good left quad activation throughout stance phase. Stairs: Negotiated up and down six 4 inch steps and four 6 inch steps while holding on bilateral rails with step to gait standby assist with minimal verbal cueing for correct technique. No increase in pain reported. No LOB. Balance: Static Sitting: Normal Dynamic Sitting: Normal Static Standing: Fair Dynamic Standing: Fair Special Tests: Mobility Limitations Standardized Measure [facility]-PAC 6 clicks Basic Mobility Inpatient Short Form: Raw Score: 22 CMS Score: 21% deficit Informed Consent/Education: Patient instructed in purpose of PT consult. Packet containing TKA exercise protocol has been given to patient. Education and training on initial set of exercises that can be done at home have been completed with patient. Assessment: Bev requires the use of a front wheeled walker to independence and reduce fall risk. She has good mastery of post operative exercises that she can safely do the first 2 weeks and is very much short of the guidance that the force therapeutic zenia/software will provide for her at home. Flexion Patient presents with clinical signs and symptoms consistent with current /admitting diagnoses that have resulted to mobility limitations, gait instability, generalized weakness, and impairment of motor control as demonstrated by the following impairment level findings: 1. Decreased strength to left knee major muscle groups 2. Impaired standing balance 3. Limitation of joint range of motion in left knee flexion Impairments are contributing to the following functional limitations: 1. Inability to safely ambulate without assistive device 2. Increase completion time for mobility ADL performance 3. Increased fall risk Patient is assessed as a [id number] moderate complexity based on the following: History: 66-year-old female with impairment level findings, functional limitations, and past medical history as indicated above Examination: Demonstrable impairment in strength, balance, and mobility level with underlying impairments and functional limitations as documented above Presentation: Evolving Decision Makin moderate complexity Goals: N/A. PT evaluation and 1-2 treatment sessions only for functional mobility training using recommended AD and for HEP instruction. Plan of Care/Treatment Plan: N/A. PT evaluation and 1-2 treatment session only for functional mobility training using recommended AD and for HEP instruction. DISCHARGE RECOMMENDATIONS: Home when medically cleared by orthopedic surgeon. Outpatient PT services to facilitate return to independent community ambulation without an assistive device. TREATMENT CODE/TIME: 22894 x 20 minutes, 91068 x 17 minutes beginning at 12:05 PM. Thank you for the opportunity to participate in the care of this patient. Ruth Nj PT, DPT, CLT [facility] [place], [place]
== END 2021-07-11 13:30 | disposition home or self-care (01) ==
PROVIDERS: PCP Nurse Practitioner Family; Visit Provider Student in an Organized Health Care Education/Training Program
PROC: (CPT 27447; principal; 2021-07-11 07:30)
DX: M17.12 Unilateral primary osteoarthritis, left knee (principal); I10 Essential (primary) hypertension; E78.00 Pure hypercholesterolemia, unspecified; E66.9 Obesity, unspecified
CPT/HCPCS: 27447; C1776; 97162; 97530; J0690; J1100; J1885; J2001; J2250; J2405; J2704

== ENCOUNTER → 2021-07-24 08:54 | Outpatient (BNVA) | payer MEDICARE, BC, SELFPAY | PROVIDERS: PCP Nurse Practitioner Family; Referring Provider Nurse Practitioner Family | DX: Z47.1 Aftercare following joint replacement surgery (principal); Z96.652 Presence of left artificial knee joint ==

== ENCOUNTER 2021-07-24 10:06 | Outpatient (CLI) | payer MEDICARE, BC, SELFPAY ==
--- NOTE | 2021-07-24 08:45 | DI.RAD_ITS ---
Exam(s) XR STANDING ALIGNMENT EXAM: XR STANDING ALIGNMENT CLINICAL HISTORY: 1ST POST OP L TKA. TECHNIQUE: 2D digital imaging was performed. COMPARISON: CR XR STANDING ALIGNMENT from 03/27/2021 FINDINGS: There has been interval placement of a left knee prosthesis appears to be in satisfactory alignment. There are advanced degenerative changes in the medial compartment of the opposite-right knee again n oted. Both hips appear unremarkable as do the bones of the pelvis and sacroiliac joints. Mild degen erative changes in both ankles noted. No osseous lesions. IMPRESSION: DATA REPOSITORY: RADIATION DOSE DELIVERED:
--- NOTE | 2021-07-24 08:45 | DI.RAD_ITS ---
Exam(s) XR KNEE LT 1V EXAM: XR KNEE LT 1V CLINICAL HISTORY: 1ST POST OP L TKA. TECHNIQUE: 2D digital imaging was performed. COMPARISON: CR XR KNEE LT 1V from 03/27/2021 FINDINGS: Been interval placement of prosthesis. Components appear to satisfactory position. There has been p atellar resurfacing. IMPRESSION: DATA REPOSITORY: RADIATION DOSE DELIVERED:
== END 2021-07-24 10:07 | disposition home or self-care (01) ==
LOC: DIORS 07-26 10:08
PROVIDERS: PCP Nurse Practitioner Family; Visit Provider Physician Assistant
DX: Z96.652 Presence of left artificial knee joint; Z47.1 Aftercare following joint replacement surgery
CPT/HCPCS: 73560; 77073

== ENCOUNTER → 2021-08-21 13:16 | Outpatient (BNVA) | payer MEDICARE, BC, SELFPAY | PROVIDERS: PCP Nurse Practitioner Family; Referring Provider Nurse Practitioner Family; Visit Provider Student in an Organized Health Care Education/Training Program | DX: Z47.1 Aftercare following joint replacement surgery (principal); Z96.652 Presence of left artificial knee joint ==

== ENCOUNTER → 2021-10-03 10:58 | Outpatient (BNVA) | payer MEDICARE, SELFPAY | PROVIDERS: PCP Nurse Practitioner Family; Referring Provider Nurse Practitioner Family; Visit Provider Student in an Organized Health Care Education/Training Program | DX: Z47.1 Aftercare following joint replacement surgery (principal); Z96.652 Presence of left artificial knee joint ==

== ENCOUNTER 2022-03-22 15:31 | Outpatient (REF) | payer MEDICARE, SELFPAY ==
[2022-03-22 22:57] LABS: ALT 30 U/L (14-59); AST 22 U/L (15-37); Alkaline Phosphatase 82 U/L (46-116); Anion Gap 8.9 mmol/L (3-11); BUN 15 mg/dL (7-18); Bilirubin, Total 0.3 mg/dL (0.2-1.0); CO2 27.1 mmol/L (21.0-32.0); CREATININE 0.8 mg/dL (0.55-1.02); Calcium 8.7 mg/dL (8.5-10.1); Chloride 104 mmol/L (98-107); Glucose 98 mg/dL (74-106); Potassium 4.3 mmol/L (3.5-5.1); Sodium 140 mmol/L (136-145); Total Protein 6.9 g/dL (6.4-8.2); Vitamin B12 391 pg/mL (193-986)
[2022-03-22 23:23] LABS: FREE T4 1.02 ng/dL (0.76-1.46)
[2022-03-23 17:12] LABS: T3,Free 4.3 pg/mL (2.8-5.3)
== END 2022-03-22 15:32 | disposition home or self-care (01) ==
LOC: NCHCN 15:31
PROVIDERS: PCP Nurse Practitioner Family; Visit Provider Nurse Practitioner Family
DX: E04.1 Nontoxic single thyroid nodule (principal); E78.00 Pure hypercholesterolemia, unspecified; I10 Essential (primary) hypertension; E66.9 Obesity, unspecified; K30 Functional dyspepsia; Z79.899 Other long term (current) drug therapy
CPT/HCPCS: 80053; 82607; 83735; 84439; 84443; 84481

== ENCOUNTER → 2022-05-24 01:41 | Outpatient (CLI) | payer MEDICARE, SELFPAY ==
--- NOTE | 2022-05-24 | DI.US_ITS ---
Exam(s) US THYROID EXAM: US THYROID CLINICAL HISTORY: THYROID NODULE E04.1. TECHNIQUE: Ultrasound thyroid performed using standard protocol. COMPARISON: US US THYROID from 02/16/2021 FINDINGS: ISTHMUS: 3.4 mm RIGHT LOBE: Size: 4.4 x 1.6 x 2.0 cm Echogenicity: Normal. Vascularity: Normal. Nodules: There is again seen a solid isoechoic nodule in the right lobe of the thyroid gland measurin g 1.1 transverse by 0.8 AP by 1.7 craniocaudad cm. There are no internal echogenic foci. This compar es to 0.7 x 0.7 x 1.3 cm. This is consistent with a TI rads level 3 nodule. LEFT LOBE: Size: 4.4 x 1.7 x 1.5 cm Echogenicity: Normal. Vascularity: Normal. Nodules: None OTHER FINDINGS: None. IMPRESSION: TIRADS level 3 nodule in the right thyroid. Based on its size follow-up is recommended. DATA REPOSITORY:
--- NOTE | 2022-05-24 | DI.MAMMO_ITS ---
Exam(s) MAMMO SCREENING EXAM: MAMMO SCREENING CLINICAL HISTORY: SCREENING MAMMO FOR BREAST CANCER Z12.39 TECHNIQUE: Bilateral full field digital CC and MLO mammographic images were obtained with 3D tomosyn thesis and utilizing computer aided detection (CAD). COMPARISON: Available for comparison. FINDINGS: Masses/Architectural Distortion: None seen. Microcalcifications: No suspicious pleomorphic-type are seen. Skin Thickening/Nipple Retraction: None. IMPRESSION: 1. No significant interval change with no specific features of malignancy noted. 2. Unless there is more urgent need, screening mammography is recommended, as per [employer] guidelines. BI-RADS Category 1 - Negative Breast Density - Category C - Heterogeneously dense Breast density category C or D implies that the patient has dense breast tissue. Dense breast tissue is very common and is not abnormal but dense breast tissue can make it harder to find cancer on a ma mmogram. Also, dense breast tissue may increase their breast cancer risk. This information about the result of the mammogram report was provided to the patient to raise their awareness. Use this report when you speak with the patient about their risks for breast cancer, which includes their family hist ory. At that time, you may recommend for more screening tests (Ultrasound or MRI) as they might be us eful based on their risk. A negative radiographic report should not delay biopsy if a dominant or clinically suspicious mass is present. Up to ten percent of cancers are not identified on mammography. A negative report may reinforce clinical impression. Adenosis and dense breasts may obscure an underlying neoplasm. False positive reports average 6 to 10%. Patient will receive a letter notifying them of these results.
== END ==
PROVIDERS: PCP Nurse Practitioner Family; Visit Provider Nurse Practitioner Family
DX: E04.1 Nontoxic single thyroid nodule (principal); Z12.31 Encounter for screening mammogram for malignant neoplasm of breast; R92.8 Other abnormal and inconclusive findings on diagnostic imaging of breast
CPT/HCPCS: 77063; 77067; 76536

== ENCOUNTER 2022-07-16 09:23 | Outpatient (CLI) | payer MEDICARE, SELFPAY ==
--- NOTE | 2022-07-16 09:00 | DI.RAD_ITS ---
Exam(s) XR KNEE LT 2V AP,LAT EXAM: XR KNEE LT 2V AP,LAT CLINICAL HISTORY: s/p left TKA. TECHNIQUE: 2D digital imaging was performed. COMPARISON: CR XR KNEE LT 1V from 07/24/2021 FINDINGS: Two views:: Stable position alignment the components of prosthesis. No fracture nor loosening evident. IMPRESSION: DATA REPOSITORY: RADIATION DOSE DELIVERED:
== END 2022-07-16 09:24 | disposition home or self-care (01) ==
LOC: DIORS 09:23
PROVIDERS: PCP Nurse Practitioner Family; Referring Provider Nurse Practitioner Family; Visit Provider Physician Assistant
DX: Z96.652 Presence of left artificial knee joint (principal); M17.11 Unilateral primary osteoarthritis, right knee
CPT/HCPCS: 99213; 73560

== ENCOUNTER → 2022-11-08 08:01 | Outpatient (BNVA) | payer MEDICARE, SELFPAY | PROVIDERS: PCP Nurse Practitioner Family; Referring Provider Nurse Practitioner Family; Visit Provider Physician Assistant | DX: M17.11 Unilateral primary osteoarthritis, right knee (principal) | CPT/HCPCS: 20610; J1040 ==

== ENCOUNTER → 2022-11-15 13:52 | Outpatient (BNVA) | payer MEDICARE, SELFPAY | PROVIDERS: PCP Nurse Practitioner Family; Referring Provider Nurse Practitioner Family; Visit Provider Physical Therapy Assistant | DX: L98.9 Disorder of the skin and subcutaneous tissue, unspecified (principal) | CPT/HCPCS: 99213 ==

== ENCOUNTER 2022-11-20 07:57 | Outpatient (REF) | payer MEDICARE, SELFPAY ==
--- NOTE | 2022-11-20 08:15 | SKI_PTH ---
PATIENT: Bev Villela LOC: [facility] U#:[id number] AGE/SX: 67/F ROOM: RE11/20/[address]: NIKOLAS Washburn : 1955 BED: DIS: 11/20/2022 SPEC #: [id number] RECD: 11/20/22 12:39 STATUS: RAMA REQ #: [id number] SHYANNE: 11/20/22 08:[address]: Chloe Jerome DEPT: Surgical Specimen RECD BY: Dianna Nguyen ENTERED: 11/20/22 12:40 SP TYPE: ISATU DEAN DR: Rena Hinds Tissues: 1 - SKIN BIOPSY(SHAVE/PUNCH) Procedures: SKIN LEVEL 4 Comments: [id number]
== END 2022-11-20 07:58 | disposition home or self-care (01) ==
LOC: LBN 07:57
PROVIDERS: PCP Nurse Practitioner Family; Referring Provider Nurse Practitioner Family; Visit Provider Physical Therapy Assistant
DX: D23.39 Other benign neoplasm of skin of other parts of face (principal)
CPT/HCPCS: 88305

== ENCOUNTER → 2022-11-20 07:57 | Outpatient (BNVA) | payer MEDICARE, SELFPAY | PROVIDERS: PCP Nurse Practitioner Family; Referring Provider Nurse Practitioner Family; Visit Provider Physical Therapy Assistant | DX: D23.39 Other benign neoplasm of skin of other parts of face | CPT/HCPCS: 11441 ==

== ENCOUNTER → 2022-11-29 14:24 | Outpatient (BNVA) | payer MEDICARE, SELFPAY | PROVIDERS: PCP Nurse Practitioner Family; Referring Provider Nurse Practitioner Family; Visit Provider Physical Therapy Assistant | DX: Z48.02 Encounter for removal of sutures (principal) ==

== ENCOUNTER 2023-04-05 19:52 | Outpatient (REF) | payer MEDICARE, SELFPAY ==
[2023-04-05 14:44] LABS: Anion Gap 10.6 mmol/L (3-11); BUN 19 mg/dL (7-18); CO2 24.4 mmol/L (21.0-32.0); CREATININE 0.9 mg/dL (0.55-1.02); Calcium 8.8 mg/dL (8.5-10.1); Chloride 103 mmol/L (98-107); Estimated GFR 68.77 (mL/min/1.73m2); FREE T4 1.03 ng/dL (0.76-1.46); Glucose 108 mg/dL (74-106); Magnesium 1.8 mg/dL (1.8-2.4); Potassium 4.3 mmol/L (3.5-5.1); Sodium 138 mmol/L (136-145); TSH 1.01 uIU/mL (0.36-3.74)
[2023-04-05 14:50] LABS: Hemoglobin A1C 5.8 % (<5.7)
[2023-04-05 15:26] LABS: Vitamin B12 1989 pg/mL (193-986)
[2023-04-05 22:00] LABS: T3,Free 4.3 pg/mL (2.8-5.3)
== END 2023-04-05 19:53 | disposition home or self-care (01) ==
LOC: NCHCN 19:52
PROVIDERS: Visit Provider Nurse Practitioner Family
DX: E04.1 Nontoxic single thyroid nodule (principal); E78.00 Pure hypercholesterolemia, unspecified; I10 Essential (primary) hypertension; R13.10 Dysphagia, unspecified; K30 Functional dyspepsia; I65.23 Occlusion and stenosis of bilateral carotid arteries; R73.09 Other abnormal glucose; Z79.899 Other long term (current) drug therapy
CPT/HCPCS: 80048; 82607; 83036; 83735; 84439; 84443; 84481

== ENCOUNTER → 2023-05-22 01:13 | Outpatient (CLI) | payer MEDICARE, SELFPAY ==
--- NOTE | 2023-05-22 | DI.US_ITS ---
Exam(s) US CAROTID EXAM: US CAROTID CLINICAL HISTORY: BILAT CAROTID ARTERY ATHEROSCLEROSIS, I65.23. TECHNIQUE: Ultrasound carotids performed using grayscale, color-flow, and spectral Doppler imaging. COMPARISON: None FINDINGS: CAROTID ARTERIES: There is some noncalcified plaque evident in the right carotid bulb and some partially calcified plaq ue evident in the left carotid bulb. Also in the proximal ICAs. However, there are no abnormal elev ated velocities at these levels. Also no elevated velocities distal to these levels. VERTEBRAL ARTERIES: Antegrade flow demonstrated in both vertebral arteries. Measurements: R Bulb: 64.6cm/s PS / 15.4cm/s ED R CCA: 88cm/s PS / 20.6cm/s ED R ECA: 110cm/s PS / 10.2cm/s ED R ICA Prox: 64.6cm/s PS / 20.6cm/s ED R ICA Mid: 75cm/s PS / 23.2cm/s ED R ICA Distal: 68.5cm/s PS /25.8cm/s ED R Vert: 41cm/s PS / 10.1cm/s ED R SVR: 0.9 R DVR: 1.1 L Bulb: 59cm/s PS / 17.9cm/s ED L CCA: 70.5cm/s PS / 19.1cm/s ED L ECA: 75.7cm/s PS / 8.9cm/s ED L ICA Prox: 66.7cm/s PS / 21.7cm/s ED L ICA Mid: 74.4cm/s PS / 26.8cm/s ED L ICA Distal: 67.9cm/s PS / 23cm/s ED L Vert: 61.5cm/s PS / 21.7cm/s ED L SVR: 1.1 L DVR: 1.4 IMPRESSION: There is some mild plaque evident bilaterally at the carotid bulbs-proximal ICAs. There are no eleva lakisha velocities. This implies amount of stenosis is less than 50 percent. Estimate visually that the amount of stenosis is less than 30 percent bilaterally. Antegrade flow is demonstrated in both vertebral arteries. Criteria for Carotid Stenosis: Normal: ICA PSV <125 cm/s no plaque or intimal thickening is visible. <50% stenosis: ICA PSV <125 cm/s and plaque or intimal thickening is visible. 50-69% stenosis: ICA PSV is 125-250 cm/s and plaque is visible. >70% stenosis to near occlusion: ICA PSV >250 cm/s with visible plaque and luminal narrowing. DATA REPOSITORY:
--- NOTE | 2023-05-22 12:31 | DI.US_ITS ---
Exam(s) US THYROID EXAM: US THYROID CLINICAL HISTORY: THYROID NODULE, E04.1. TECHNIQUE: Ultrasound thyroid performed using standard protocol. COMPARISON: US US THYROID from 05/24/2022 FINDINGS: Both thyroid lobes as well as the isthmus again exhibit normal size and echotexture with the exceptio n of the previously described solid nodule in the right lobe which is again noted and appears unchang ed. With respect to TiRads grading of this nodule. Size: This nodule measures 0.8 cm AP x 0.9 cm wide x 1.2 cm cephalocaudal cm Composition: Solid-2 points Echogenicity: Hypoechoic-2 points Shape: Wider than taller-0 points Margin: Smooth- 0 points Echogenic Foci: None-0 points Total Points for this nodule: 4 ACR Ti-Rads Category: TR4 This nodule can be followed as it measures less than 1.5 cm (which is the cutoff point 4 performing F NA on a TR4 nodule). LYMPH NODES: There is no significant adenopathy. IMPRESSION: 1. Stable unchanged solitary solid TR4 nodule in the right thyroid lobe. No new thyroid nodules. Th yroid gland size remains normal. No lymphadenopathy. 2. Recommend repeat ultrasound in 1 year, earlier if clinically indicated. DATA REPOSITORY:
== END ==
PROVIDERS: Visit Provider Nurse Practitioner Family
DX: I65.23 Occlusion and stenosis of bilateral carotid arteries (principal); E04.1 Nontoxic single thyroid nodule
CPT/HCPCS: 76536; 93880

== ENCOUNTER → 2023-05-29 01:48 | Outpatient (CLI) | payer MEDICARE, SELFPAY ==
--- NOTE | 2023-05-29 | DI.MAMMO_ITS ---
Exam(s) MAMMO SCREENING EXAM: MAMMO SCREENING CLINICAL HISTORY: SCREENING, Z12.39 TECHNIQUE: Mammograms were interpreted according to the usual protocol including computer analysis w [employer] CAD system, tomosynthesis and C-view imaging. COMPARISON: 2014 through 2021 FINDINGS: The breasts are composed of heterogeneously dense fibroglandular densities, Breast Density category C . No suspicious masses or suspicious microcalcifications are seen. No skin thickening or abnormal axillary lymph nodes are seen. There has been no significant change from prior exams. IMPRESSION: BI-RADS Category 1, Negative mammogram. Yearly screening mammography is recommended. Breast Density Category C, heterogeneously Dense. The mammogram demonstrates the patient's breast tissue is dense. Dense breast tissue is very common a nd is not abnormal but dense breast tissue can make it harder to find cancer on a mammogram. Also, de nse breast tissue may increase breast cancer risk. This information about the result of the mammogram report was provided to the patient to raise their awareness. Use this report when you speak with the patient about their risks for breast cancer, which includes their family history. At that time, you may recommend additional screening tests (Ultrasound or MRI) as they might be useful based on their r isk. A negative radiographic report should not delay biopsy if a dominant or clinically suspicious mass is present. Up to ten percent of cancers are not identified on mammography. A negative report may reinforce clinical impression. Adenosis and dense breasts may obscure an underlying neoplasm. False positive reports average 6 to 10%.
== END ==
PROVIDERS: Visit Provider Nurse Practitioner Family
DX: Z12.31 Encounter for screening mammogram for malignant neoplasm of breast (principal)
CPT/HCPCS: 77063; 77067

== ENCOUNTER 2023-06-28 01:58 | Outpatient (CLI) | payer MEDICARE, SELFPAY ==
[2023-06-28 10:18] LABS: HCT 41.3 % (36.0-46.0); HGB 13.3 g/dL (11.2-15.7); MCH 27.9 pg (27.0-33.0); MCHC 32.2 % (32.0-36.0); MCV 87 fL (80-95); MPV 8.7 fL (8.0-11.0); Platelet Count 334 10^3/uL (130-400); RBC 4.77 10^6/uL (3.93-5.22); RDW 12.5 % (11.7-14.6); RDW-SD 39.7 fL; WBC 5.85 10^3/uL (4.4-10.8)
[2023-06-28 10:40] LABS: Anion Gap 9.8 mmol/L (3-11); BUN 15 mg/dL (7-18); CO2 26.2 mmol/L (21.0-32.0); Calcium 9.7 mg/dL (8.5-10.1); Chloride 104 mmol/L (98-107); Estimated GFR 60.61 (mL/min/1.73m2); Glucose 86 mg/dL (74-106); Potassium 4.3 mmol/L (3.5-5.1); Sodium 140 mmol/L (136-145)
== END 2023-06-28 01:59 | disposition home or self-care (01) ==
LOC: LBO 01:59
PROVIDERS: Visit Provider Student in an Organized Health Care Education/Training Program
DX: M17.11 Unilateral primary osteoarthritis, right knee (principal); Z01.818 Encounter for other preprocedural examination
CPT/HCPCS: 36415; 80048; 85027

== ENCOUNTER 2023-06-28 09:17 | Outpatient (CLI) | payer MEDICARE, SELFPAY ==
--- NOTE | 2023-06-28 09:00 | DI.RAD_ITS ---
Exam(s) XR STANDING ALIGNMENT EXAM: XR STANDING ALIGNMENT CLINICAL HISTORY: OA R KNEE. TECHNIQUE: 2D digital imaging was performed. COMPARISON: X-rays 07/24/2021 FINDINGS: Three views. Again noted is a left knee prosthesis which appears satisfactory. There is advanced degenerative change in the right knee medial compartment almost [id number] as wel l as marginal osteophytes. Milder degenerative changes evident in the lateral compartment with relat denise preservation of height of the lateral compartment. Both hips appear unremarkable. Ankles unremarkable. IMPRESSION: Degenerative changes right knee. Minimal change from 07/24/2021. DATA REPOSITORY: RADIATION DOSE DELIVERED:
--- NOTE | 2023-06-28 09:00 | DI.RAD_ITS ---
Exam(s) XR KNEE RT 1V EXAM: XR KNEE RT 1V CLINICAL HISTORY: PRE OP R TKA. TECHNIQUE: 2D digital imaging was performed. COMPARISON: CR XR KNEE LT 2V AP,LAT from 07/16/2022 CR XR STANDING ALIGNMENT from 06/28/2023 FINDINGS: Single lateral view of the right knee reveals advanced degenerative change. Also prominent enlargeme nt of the superior pole the patella which is also appreciated on the frontal view and appears tripart ite. IMPRESSION: Advanced degenerative changes in the right knee. DATA REPOSITORY: RADIATION DOSE DELIVERED:
== END 2023-06-28 09:18 | disposition home or self-care (01) ==
LOC: DIORS 09:17
PROVIDERS: PCP Nurse Practitioner Family; Visit Provider Physician Assistant
DX: M17.11 Unilateral primary osteoarthritis, right knee (principal); Z01.818 Encounter for other preprocedural examination
CPT/HCPCS: 73560; 77073

== ENCOUNTER 2023-07-10 08:46 | Day surgery (SDC) | payer MEDICARE, SELFPAY ==
[2023-07-10] VITALS (10 sets, daily range): BP systolic 104–156; BP diastolic 44–97; PULSE 57–87; RESP 16–19; TEMP 36.2–37; O2SAT 96–100; BMI 31.1
[2023-07-10] MEDS: Acetaminophen 500 MG TAB 1000 MG PO (09:46)
[2023-07-10] MEDS: Celecoxib 200 MG CAP 400 MG PO (09:46)
[2023-07-10] MEDS: Gabapentin 300 MG CAP PO (09:46)
--- NOTE | 2023-07-10 10:14 | ANES.PREOP_ITS ---
General Info Date of Service Date Performed: 07/10/23 Height: 5 ft 5.5 in Weight: 86.3 kg Body Mass Index (BMI): 31.1 Surgical Procedure: Operation Date: 07/10/23 12:25 Proposed Procedure Side Surgeon p Knee Total Arthroplasty, Cementless CR Right Beck Gutiérrez MD Meds Allergies and Home Medications Allergies Allergy/AdvReac Type Severity Reaction Status Date / Time codeine AdvReac Severe Nausea Unverified 07/10/23 09:29 Home Medication Medication Instructions Recorded simvastatin 20 mg tablet 20 mg PO HS 09/28/13 Tumeric 2,000 mg PO DAILY 10/12/20 cholecalciferol (vitamin D3) 50 50 mcg PO DAILY 10/12/20 mcg (2,000 unit) tablet (Vitamin D3) famotidine 20 mg tablet 20 mg PO HS 10/12/20 lisinopril 10 mg tablet 10 mg PO HS 10/12/20 loratadine 10 mg tablet (Claritin) 10 mg PO DAILY 10/12/20 acetaminophen 325 mg tablet 650 mg (2 x 325 mg) PO Q6H PRN #0 07/11/21 (Tylenol) tabs aspirin 81 mg tablet,delayed 81 mg PO DAILY 10/03/22 release (Roberto Low Dose Aspirin) cyanocobalamin (vitamin B-12) 1,000 mcg PO DAILY 10/03/22 1,000 mcg capsule ibuprofen 200 mg tablet (Advil) 800 mg PO DAILY PRN 10/03/22 turmeric root extract 500 mg 1,000 mg PO DAILY 10/03/22 capsule vitamins A,C,I-hpxq-bevqqc 4,296 1 cap PO DAILY 06/28/23 mcg-226 mg-90 mg capsule (PreserVision AREDS) betamethasone dipropionate 0.05 % applic topical 07/10/23 topical cream Current Visit Medications: Current Medications Generic Name Dose Route Start Last Admin Trade Name Freq PRN Reason Stop Dose Admin Acetaminophen 1,000 mg 07/10/23 06:00 07/10/23 09:46 Acetaminophen 500 Mg Tab PO 07/10/23 16:00 1,000 mg PREOP FADI Administration Acetaminophen 1,000 mg 07/10/23 07:22 Acetaminophen 500 Mg Tab PO 08/09/23 07:21 TID PRN PRN Analgesia Celecoxib 400 mg 07/10/23 06:00 07/10/23 09:46 Celecoxib 200 Mg Cap PO 07/10/23 16:00 400 mg PREOP FADI Administration Docusate Sodium 100 mg 07/10/23 07:22 Docusate Sodium 100 Mg Cap PO 08/09/23 07:21 BID PRN PRN Constipation Gabapentin 300 mg 07/10/23 06:00 07/10/23 09:46 Gabapentin 300 Mg Cap PO 07/10/23 16:00 300 mg PREOP FADI Administration Tranexamic Acid 1,000 mg/ 60 mls @ 360 mls/hr 07/10/23 06:00 Sodium Chloride IVPB 07/10/23 16:00 PREOP FADI Ringer's Solution 1,000 mls @ 80 mls/hr 07/10/23 06:00 IV 08/08/23 23:59 INFUSION FADI Cefazolin Sodium/Dextrose 2 gm in 50 mls @ 100 mls/hr 07/10/23 06:00 Ancef Duplex IVPB 08/08/23 23:59 PREOP FADI IV Miscellaneous Supplies 1 each 07/10/23 06:00 Iv Access IV 08/08/23 23:59 DIRECTED FADI Ondansetron HCl 4 mg 07/10/23 07:22 Ondansetron 4 Mg/2 Ml Vial IVP 08/09/23 07:21 Q6H PRN PRN Nausea Oxycodone HCl 0 mg 07/10/23 07:22 Oxycodone 5 Mg Tab PO 08/09/23 07:21 Q3H PRN PRN Pain Polyethylene Glycol 17 gm 07/10/23 07:22 Polyethylene Glycol 3350 17 Gm Packet PO 08/09/23 07:21 BID PRN PRN Constipation Sodium Chloride 0 ml 07/10/23 06:00 Normal Saline Flush 10 Ml Syr IV 08/08/23 23:59 PRN PRN Sodium Chloride 0 ml 07/10/23 06:00 Normal Saline 10 Ml Vial IJ 08/08/23 23:59 DIRECTED PRN Sterile Water 0 ml 07/10/23 06:00 Water,Injection,Sterile 10 Ml Vial IJ 08/08/23 23:59 DIRECTED PRN PFSH Active Problems Active Problems: Problem Status Onset Code Skin lesion L98.9 History of arthroscopic knee surgery Z98.890 Screening for colorectal cancer Z12.11, Z12.12 Hallux rigidus of right foot M20.21 Hallux limitus of left foot M20.5X2 Hammertoe of second toe of left foot M20.42 Osteoarthritis of knee M17.10 Medical History Medical History Ear pain, right Thyroid nodule Eczema Obesity Pain in right toe(s) Low back pain Dysarthria Dyspepsia High cholesterol Hypertension Arthritis Carotid atherosclerosis Pt. f/u with PCP and follows up with US Medical History Comments:: 07/10/23: Pt reports post nasal drip Surgical History Surgical History History of total left knee replacement (07/11/21) History of foot surgery left great toe repair x2 History of shoulder surgery removal neurofibro right shoulder Colonoscopy - IV Sedation (04/20/16) Tobacco Smoking/Tobacco Use Status: Former Tobacco Use Alcohol Alcohol Intake: current Alcohol intake frequency: a few times a week Alcohol type: wine Substance Use Substance use: Never Substance use type: does not use Vital Signs and Lab Results Vital Signs Most Recent Vital Signs in EMR: Most Recent Vital Signs Temp Pulse Resp BP Pulse Ox 36.2 C L 87 16 151/81 H 97 07/10/23 09:25 07/10/23 09:25 07/10/23 09:25 07/10/23 09:25 07/10/23 09:25 Lab Results Blood Type / Crossmatch: No Data to Display Complete Blood Count: White Blood Count 5.85 10^3/uL (4.4-10.8) 06/28/23 10:12 Red Blood Count 4.77 10^6/uL (3.93-5.22) 06/28/23 10:12 Hemoglobin 13.3 g/dL (11.2-15.7) 06/28/23 10:12 Hematocrit 41.3 % (36.0-46.0) 06/28/23 10:12 Platelet Count 334 10^3/uL (130-400) 06/28/23 10:12 Complete Metabolic Panel: Sodium 140 mmol/L (136-145) 06/28/23 10:12 Potassium 4.3 mmol/L (3.5-5.1) 06/28/23 10:12 Chloride 104 mmol/L (98-107) 06/28/23 10:12 Carbon Dioxide 26.2 mmol/L (21.0-32.0) 06/28/23 10:12 BUN 15 mg/dL (7-18) 06/28/23 10:12 Creatinine 1.0 mg/dL (0.55-1.02) 06/28/23 10:12 Est GFR (CKD-EPI 2020) 60.61 (mL/min/1.73m2) 06/28/23 10:12 Calcium 9.7 mg/dL (8.5-10.1) 06/28/23 10:12 Glucose 86 mg/dL (74-106) 06/28/23 10:12 Liver Function Panel: No Data to Display Coagulation Panel: No Data to Display Cardiac Panel: No Data to Display Arterial Blood Gas: No Data to Display Venous Blood Gas: No Data to Display Pancreas Panel: No Data to Display Thyroid Panel: No Data to Display Infectious Disease: No Data to Display Blood Cultures: No Data to Display Toxicology Panel: No Data to Display Imaging and Studies Imaging and Studies Study information below may be from another EMR and interpreted by another provider. Please see original notes in EMR for more complete details. Carotid Artery Summary:: Date of Exam: 05/22/23 Sex: F Admission Date: 05/22/23 : 1955 Age: 68 Exam(s) US CAROTID EXAM: US CAROTID CLINICAL HISTORY: BILAT CAROTID ARTERY ATHEROSCLEROSIS, I65.23. TECHNIQUE: Ultrasound carotids performed using grayscale, color-flow, and sp ectral Doppler imaging. COMPARISON: None CAROTID ARTERIES: There is some noncalcified plaque evident in the right carotid bulb and some partially calcified plaque evident in the left carotid bulb. Also in the proximal ICAs. However, there are no abnormal elevated velocities at these levels. Also no elevated velocities distal to these levels. VERTEBRAL ARTERIES: Antegrade flow demonstrated in both vertebral arteries. IMPRESSION: There is some mild plaque evident bilaterally at the carotid bulbs-proximal ICAs. There are no elevated velocities. This implies amount of stenosis is less than 50 percent. Estimate visually that the amount of stenosis is less than 30 percent bilaterally. Antegrade flow is demonstrated in both vertebral arteries. Date of Exam: 08/19/20ex: F Admission Date: 08/19/20 : 1955 Age: 65 Exam(s) a US:US carotid FINDINGS: RIGHT CAROTID ARTERY: Plaque: Small focus of noncalcified plaque in the right common carotid bulb. Minimal plaque elsewhere. Velocity elevation: None. LEFT CAROTID ARTERY: Plaque: Minimal calcific plaque in the common carotid bulb.. Velocity elevation: None. VERTEBRAL ARTERIES: Antegrade flow. IMPRESSION: Mild bilateral plaque in the common carotid bulbs. No evidence for hemodynamically significant carotid stenosis. Criteria for Carotid Stenosis: Normal: ICA PSV <125 cm/s no plaque or intimal thickening is visible. <50% stenosis: ICA PSV <125 cm/s and plaque or intimal thickening is visible. 50-69% stenosis: ICA PSV is 125-250 cm/s and plaque is visible. >70% stenosis to near occlusion: ICA PSV >250 cm/s with visible plaque and luminal narrowing. Anesthesia Assessment and Plan Anesthesia History Personal History: PONV Family History: No Family History of Anesthesia Complications Exercise Tolerance Exercise Tolerance: Metabolic Equivalents>4 Pertinent Negatives Pertinent Negatives: No Symptoms of GERD Cardiac & Pulmonary Exam Cardiac Exam: Normal S1/S2 Heart Sounds Pulmonary Exam: Clear Bilateral Breath Sounds Implantable Cardiac Device Does patient have a Pacemaker or an ICD?: No Airway Exam Known Difficult Airway: No Mallampati Class: 2 Mouth Opening: Normal (> 3cm) Thyromental Distance: Greater than 3 cm Neck Range of Motion: Full ROM Neck Circumference: Normal Teeth Condition: Normal Dentition ASA Classification ASA Score: ASA 2 Emergency Case?: No NPO Status NPO Status: NPO Clears >2 hours, Solids >8 hours Anesthesia Plan Resuscitation Status: Full Code Anesthesia Technique: Spinal Anesthesia Airway Planned: Natural Airway Pain Management: Surgeon and patient request nerve block Monitors Used: Standard Monitors
--- NOTE | 2023-07-10 10:15 | ANES.PREOP_ITS ---
General Info Date of Service Date Performed: 07/10/23 Height: 5 ft 5.5 in Weight: 86.3 kg Body Mass Index (BMI): 31.1 Surgical Procedure: Operation Date: 07/10/23 12:25 Proposed Procedure Side Surgeon p Knee Total Arthroplasty, Cementless CR Right Beck Gutiérrez MD Meds Allergies and Home Medications Allergies Allergy/AdvReac Type Severity Reaction Status Date / Time codeine AdvReac Severe Nausea Unverified 07/10/23 09:29 Home Medication Medication Instructions Recorded simvastatin 20 mg tablet 20 mg PO HS 09/28/13 Tumeric 2,000 mg PO DAILY 10/12/20 cholecalciferol (vitamin D3) 50 50 mcg PO DAILY 10/12/20 mcg (2,000 unit) tablet (Vitamin D3) famotidine 20 mg tablet 20 mg PO HS 10/12/20 lisinopril 10 mg tablet 10 mg PO HS 10/12/20 loratadine 10 mg tablet (Claritin) 10 mg PO DAILY 10/12/20 cyanocobalamin (vitamin B-12) 1,000 mcg PO DAILY 10/03/22 1,000 mcg capsule turmeric root extract 500 mg 1,000 mg PO DAILY 10/03/22 capsule vitamins A,C,Y-zreq-zztqwl 4,296 1 cap PO DAILY 06/28/23 mcg-226 mg-90 mg capsule (PreserVision AREDS) acetaminophen 500 mg tablet 1,000 mg (2 x 500 mg) PO TID #90 07/10/23 tabs aspirin 81 mg tablet,delayed 81 mg PO BID #60 tabs 07/10/23 release betamethasone dipropionate 0.05 % applic topical 07/10/23 topical cream celecoxib 200 mg capsule 200 mg PO BID #60 caps 07/10/23 dexamethasone 4 mg tablet 4 mg PO DAILY #2 tabs 07/10/23 gabapentin 300 mg capsule 300 mg PO QHS #14 caps 07/10/23 oxycodone 5 mg tablet 5 mg PO Q4H PRN pain #20 tabs 07/10/23 pantoprazole 40 mg tablet,delayed 40 mg PO DAILY #30 tabs 07/10/23 release Current Visit Medications: Current Medications Generic Name Dose Route Start Last Admin Trade Name Freq PRN Reason Stop Dose Admin Acetaminophen 1,000 mg 07/10/23 06:00 07/10/23 09:46 Acetaminophen 500 Mg Tab PO 07/10/23 16:00 1,000 mg PREOP FADI Administration Acetaminophen 1,000 mg 07/10/23 07:22 Acetaminophen 500 Mg Tab PO 08/09/23 07:21 TID PRN PRN Analgesia Celecoxib 400 mg 07/10/23 06:00 07/10/23 09:46 Celecoxib 200 Mg Cap PO 07/10/23 16:00 400 mg PREOP FADI Administration Docusate Sodium 100 mg 07/10/23 07:22 Docusate Sodium 100 Mg Cap PO 08/09/23 07:21 BID PRN PRN Constipation Gabapentin 300 mg 07/10/23 06:00 07/10/23 09:46 Gabapentin 300 Mg Cap PO 07/10/23 16:00 300 mg PREOP FADI Administration Tranexamic Acid 1,000 mg/ 60 mls @ 360 mls/hr 07/10/23 06:00 Sodium Chloride IVPB 07/10/23 16:00 PREOP FADI Ringer's Solution 1,000 mls @ 80 mls/hr 07/10/23 06:00 IV 08/08/23 23:59 INFUSION FADI Cefazolin Sodium/Dextrose 2 gm in 50 mls @ 100 mls/hr 07/10/23 06:00 Ancef Duplex IVPB 08/08/23 23:59 PREOP FADI IV Miscellaneous Supplies 1 each 07/10/23 06:00 Iv Access IV 08/08/23 23:59 DIRECTED FADI Ondansetron HCl 4 mg 07/10/23 07:22 Ondansetron 4 Mg/2 Ml Vial IVP 08/09/23 07:21 Q6H PRN PRN Nausea Oxycodone HCl 0 mg 07/10/23 07:22 Oxycodone 5 Mg Tab PO 08/09/23 07:21 Q3H PRN PRN Pain Polyethylene Glycol 17 gm 07/10/23 07:22 Polyethylene Glycol 3350 17 Gm Packet PO 08/09/23 07:21 BID PRN PRN Constipation Sodium Chloride 0 ml 07/10/23 06:00 Normal Saline Flush 10 Ml Syr IV 08/08/23 23:59 PRN PRN Sodium Chloride 0 ml 07/10/23 06:00 Normal Saline 10 Ml Vial IJ 08/08/23 23:59 DIRECTED PRN Sterile Water 0 ml 07/10/23 06:00 Water,Injection,Sterile 10 Ml Vial IJ 08/08/23 23:59 DIRECTED PRN PFSH Active Problems Active Problems: Problem Status Onset Code Skin lesion L98.9 History of arthroscopic knee surgery Z98.890 Screening for colorectal cancer Z12.11, Z12.12 Hallux rigidus of right foot M20.21 Hallux limitus of left foot M20.5X2 Hammertoe of second toe of left foot M20.42 Osteoarthritis of knee M17.10 Medical History Medical History Ear pain, right Thyroid nodule Eczema Obesity Pain in right toe(s) Low back pain Dysarthria Dyspepsia High cholesterol Hypertension Arthritis Carotid atherosclerosis Pt. f/u with PCP and follows up with US Medical History Comments:: 07/10/23: Pt reports post nasal drip Surgical History Surgical History History of total left knee replacement (07/11/21) History of foot surgery left great toe repair x2 History of shoulder surgery removal neurofibro right shoulder Colonoscopy - IV Sedation (04/20/16) Tobacco Smoking/Tobacco Use Status: Former Tobacco Use Alcohol Alcohol Intake: current Alcohol intake frequency: a few times a week Alcohol type: wine Substance Use Substance use: Never Substance use type: does not use Vital Signs and Lab Results Vital Signs Most Recent Vital Signs in EMR: Most Recent Vital Signs Temp Pulse Resp BP Pulse Ox 36.2 C L 87 16 151/81 H 97 07/10/23 09:25 07/10/23 09:25 07/10/23 09:25 07/10/23 09:25 07/10/23 09:25 Lab Results Blood Type / Crossmatch: No Data to Display Complete Blood Count: White Blood Count 5.85 10^3/uL (4.4-10.8) 06/28/23 10:12 Red Blood Count 4.77 10^6/uL (3.93-5.22) 06/28/23 10:12 Hemoglobin 13.3 g/dL (11.2-15.7) 06/28/23 10:12 Hematocrit 41.3 % (36.0-46.0) 06/28/23 10:12 Platelet Count 334 10^3/uL (130-400) 06/28/23 10:12 Complete Metabolic Panel: Sodium 140 mmol/L (136-145) 06/28/23 10:12 Potassium 4.3 mmol/L (3.5-5.1) 06/28/23 10:12 Chloride 104 mmol/L (98-107) 06/28/23 10:12 Carbon Dioxide 26.2 mmol/L (21.0-32.0) 06/28/23 10:12 BUN 15 mg/dL (7-18) 06/28/23 10:12 Creatinine 1.0 mg/dL (0.55-1.02) 06/28/23 10:12 Est GFR (CKD-EPI 2020) 60.61 (mL/min/1.73m2) 06/28/23 10:12 Calcium 9.7 mg/dL (8.5-10.1) 06/28/23 10:12 Glucose 86 mg/dL (74-106) 06/28/23 10:12 Liver Function Panel: No Data to Display Coagulation Panel: No Data to Display Cardiac Panel: No Data to Display Arterial Blood Gas: No Data to Display Venous Blood Gas: No Data to Display Pancreas Panel: No Data to Display Thyroid Panel: No Data to Display Infectious Disease: No Data to Display Blood Cultures: No Data to Display Toxicology Panel: No Data to Display Imaging and Studies Imaging and Studies Study information below may be from another EMR and interpreted by another provider. Please see original notes in EMR for more complete details. Carotid Artery Summary:: Date of Exam: 08/19/20ex: F Admission Date: 08/19/20 : 1955 Age: 65 Exam(s) a US:US carotid FINDINGS: RIGHT CAROTID ARTERY: Plaque: Small focus of noncalcified plaque in the right common carotid bulb. Minimal plaque elsewhere. Velocity elevation: None. LEFT CAROTID ARTERY: Plaque: Minimal calcific plaque in the common carotid bulb.. Velocity elevation: None. VERTEBRAL ARTERIES: Antegrade flow. IMPRESSION: Mild bilateral plaque in the common carotid bulbs. No evidence for hemodynamically significant carotid stenosis. Criteria for Carotid Stenosis: Normal: ICA PSV <125 cm/s no plaque or intimal thickening is visible. <50% stenosis: ICA PSV <125 cm/s and plaque or intimal thickening is visible. 50-69% stenosis: ICA PSV is 125-250 cm/s and plaque is visible. >70% stenosis to near occlusion: ICA PSV >250 cm/s with visible plaque and luminal narrowing. Anesthesia Assessment and Plan Anesthesia History Personal History: PONV Family History: No Family History of Anesthesia Complications Exercise Tolerance Exercise Tolerance: Metabolic Equivalents>4 Pertinent Negatives Pertinent Negatives: No Symptoms of GERD, No Major Cardiovascular Symptoms or Complaints and No Major Pulmonary Symptoms or Complaints Cardiac & Pulmonary Exam Cardiac Exam: Normal S1/S2 Heart Sounds Pulmonary Exam: Clear Bilateral Breath Sounds Implantable Cardiac Device Does patient have a Pacemaker or an ICD?: No Airway Exam Known Difficult Airway: No Mallampati Class: 2 Mouth Opening: Normal (> 3cm) Thyromental Distance: Greater than 3 cm Neck Range of Motion: Full ROM Neck Circumference: Normal Teeth Condition: Normal Dentition ASA Classification ASA Score: ASA 2 Emergency Case?: No NPO Status NPO Status: NPO Clears >2 hours, Solids >8 hours Anesthesia Plan Resuscitation Status: Full Code Anesthesia Technique: Spinal Anesthesia Airway Planned: Natural Airway Pain Management: Surgeon and patient request nerve block Monitors Used: Standard Monitors
[2023-07-10] MEDS: Lactated Ringers 1,000 ML 80 ML IV (10:19)
--- NOTE | 2023-07-10 10:45 | W.ANESNERVE ---
Nerve Block Single Injection Procedure Date and Time Date Performed: 07/10/23 Procedure Start: 10:35 Location Where Procedure Performed Procedure Location: Day Surgery Unit Reason Performed: Postoperative Analgesia Requesting Provider: Beck Gutiérrez Timeout Performed Timeout Performed: Yes Monitoring Used ECG, Blood Pressure, SpO2 and See EMR for corresponding vital signs Sterility Sterility: Hand Hygiene, Surgical Cap, Surgical Mask, Sterile Gloves and Chlorhexidine Sedation Given During Procedure Sedation Given (Indicate Dose Given): No Sedation given Patient Mental Status Patient Mental Status: Awake Nerve Block 1st Nerve Block: Laterality: Right Block Type: Adductor Canal Ultrasound Image Saved?: Yes Needle / Catheter Used: 100mm SonoPlex II Local Anesthetic Bolus (Indicate Dose Given): Lidocaine used for local infiltration of skin, Injected in 3-5ml increments after negative blood aspiration and Bupivacaine 0.25% Dose:: 20ml Additives (Indicate Dose Given): None Ultrasound: Sterile probe cover and gel used Nerve Stimulator: Not Used Paresthesia: None Procedure Tolerated: No Complications and Patient tolerated well Procedure Outcome: Successful Performed By: Yohan Steiner
--- NOTE | 2023-07-10 12:13 | W.PM.DSUDISC ---
Date of service: 07/10/23 Time of Service: 12:20 Discharge Plan Disposition Patient Disposition: Home Condition: Good Discharge Details Reason For Visit: R MIKEYR Attending Provider: Beck Gutiérrez Primary Care Provider: Rena Hinds Home Meds and New Rx's Prescriptions: New acetaminophen 500 mg tablet 1,000 mg PO TID Qty: 90 3RF celecoxib 200 mg capsule 200 mg PO BID Qty: 60 0RF aspirin 81 mg tablet,delayed release (DR/EC) 81 mg PO BID Qty: 60 0RF pantoprazole 40 mg tablet,delayed release (DR/EC) 40 mg PO DAILY Qty: 30 0RF dexamethasone 4 mg tablet 4 mg PO DAILY Qty: 2 0RF gabapentin 300 mg capsule 300 mg PO QHS Qty: 14 0RF oxycodone 5 mg tablet 5 mg PO Q4H MDD 6 tabs PRN (Reason: pain) Qty: 20 0RF Continued PreserVision AREDS 4,296 mcg-226 mg-90 mg capsule 1 cap PO DAILY turmeric root extract 500 mg capsule 1,000 mg PO DAILY cyanocobalamin (vitamin B-12) 1,000 mcg capsule 1,000 mcg PO DAILY simvastatin 20 MG tablet 20 mg PO HS betamethasone dipropionate 0.05 % cream TOPICAL Patient Comments: APPLY SPARINGLY ONCE TO TWICE DAILY NEEDED TO AFFECTED AREAS loratadine [Claritin] 10 mg Tablet 10 mg PO DAILY cholecalciferol (vitamin D3) [Vitamin D3] 50 mcg (2,000 unit) Tablet 50 mcg PO DAILY Tumeric 1,000 mg tablet 2,000 mg PO DAILY famotidine 20 mg tablet 20 mg PO HS Patient Comments: TK 1 T PO D lisinopril 10 mg tablet 10 mg PO HS Patient Comments: TAKE 1 TABLET BY MOUTH EVERY DAY Discontinued ibuprofen [Advil] 200 mg tablet 800 mg PO DAILY PRN aspirin [Roberto Low Dose Aspirin] 81 mg tablet,delayed release (DR/EC) 81 mg PO DAILY acetaminophen [Tylenol] 325 MG tablet 650 mg PO Q6H PRNQty: 0 0RF Discharge Instructions Additional Instructions: Total Knee Discharge Instructions Activity: The most important activity is to walk and to work on gentle motion (both flexion and extension). You should try to take short walks a few times a day. It is important that when resting you work on keeping the knee straight. Avoid putting a pillow behind the knee as this will encourage flexion. Work on range of motion exercises as provided by Physical Therapy. - Start outpatient physical therapy within 2 weeks. - You should wear the GABRIELLA hose on both legs for 2 weeks. You may remove these at night. You may also use any compression sock in place of the GABRIELLA hose. - Utilize [employer] to review exercises, see videos on exercises and obtain basic information pertaining to your surgery and your recovery. Dressing: Remove the Spencer wrap by 2 days after your surgery and put on the GABRIELLA stocking given to you from the hospital. Keep the surgical dressing (underneath the SPENCER wrap) in place for at least one week. After the first week it may be removed and replaced with light gauze and tape or nothing. The wound and dressing may get wet after 3 days but avoid soaking the dressing or otherwise it will need to be changed. Many people prefer covering the dressing with cling wrap (saran wrap) to minimize it from getting soaked. If it gets wet, just pat dry. If it starts to peel off then it will need to be changed. Medications: - You should take Tylenol and anti-inflammatory Celebrex as your primary pain control medications. If the Celebrex is too expensive or not covered, please call the office for another alternative (Advil/Ibuprofen or Naproxen/Aleve) - You have been prescribed a stronger pain medication Oxycodone for breakthrough pain, take as needed as prescribed. - You have also been prescribed a stomach acid reduction agent Pantoprozole to help reduce stomach acid and reflux. - You have been prescribed Gabapentin to take at night for restlessness and nerve pain. - You will be taking Aspirin 81mg twice a day for DVT prevention unless instructed otherwise. - You have also been prescribed Decadron to take to control post-operative nausea and pain. You will start this tomorrow. - If you have constipation you should take Colace or Miralax (both [id number]). It takes most people 3-4 days to have a bowel movement. Follow-up: 2 weeks If you have any acute concerns or questions, please do not hesitate to contact the office at [phone]. You may contact Dr. Gutiérrez with any questions after hours through the hospital at [phone] or on his cell phone at [phone]. Stand Alone Forms: Anesthesia Discharge Inst., [employer].Nerve Block Instructions, Jatin Lugo (DSU) Referrals: Beck Gutiérrez MD [ [facility] STAFF PHYSICIAN] - 07/25/23 11:30 am Equipment/Supplies: Walker Activity:: Activity as Tolerated Shower/Bathe:: 72 hours Diet:: As Tolerated Discharge Orders Discharge Orders: Discharge Order (Routine); Ordered 07/10/23 Ordered By: Beck Gutiérrez Discharge Data Discharge Date/Time-TO BE ENTERED AT DEPARTURE: 07/10/23 17:12 DS: Diagnosis Discharge Diagnosis (1) Osteoarthritis of knee: Status: Chronic
[2023-07-10] MEDS: ceFAZolin 2 GM/50 ML BAG IVPB (12:55)
--- NOTE | 2023-07-10 15:20 | W.ANESPOSTOP ---
Postoperative Evaluation Date, Time and Location Date Performed: 07/10/23 Time Performed: 13:05 Patient Location: PACU Vital Signs Most Recent Imported Vital Signs: Most Recent Vital Signs Temp Pulse Resp BP Pulse Ox 36.3 C L 58 L 17 111/64 98 07/10/23 15:02 07/10/23 15:02 07/10/23 15:02 07/10/23 15:02 07/10/23 15:02 Pain Score Most Recent Pain Score: Most Recent Pain Score Pain Level 5 07/10/23 15:02 Assessment Mental Status: Awake (Alert & Oriented to Patient Baseline) Airway and Respiratory Function: Patent airway with normal (patient baseline) respiratory exam Cardiovascular Function: Hemodynamically Stable Hydration Status: Adequately Hydrated Nausea & Vomiting: No Nausea or Vomiting Pain: Pain is Moderate or Severe Postoperative Pain Management: Pain being addressed with medication (Plan for small meal and PO medication) Peripheral Nerve Block: Patient did not receive a nerve block
[2023-07-10] MEDS: oxyCODONE 5 MG TAB PO (15:45)
--- NOTE | 2023-07-10 16:10 | ROE_ITS ---
Date of service: 07/10/23 Time of Service: 12:15 Operative Note Operative Note DATE OF PROCEDURE: 07/10/23 PRE-OP DIAGNOSIS: Right Knee Osteoarthritis POST-OP DIAGNOSIS: same PROCEDURE: Right Total Knee Replacement SURGEON: Beck Gutiérrez [employer]ED [employer] OFFICER: Caro Garcia ANESTHESIA TYPE: General LMA/ETT Refer to Anesthesia Record ESTIMATED BLOOD LOSS: 300 PATHOLOGY: none sent TOURNIQUET TIME: 0 COMPLICATIONS: None Patient was transported to: PACU Patient's condition: stable Implants: 1. Depuy Attune Cementless Cruciate Retaining Femoral Component, Size 5 2. Depuy Attune Cementless Fixed Bearing Tibial Component, Size 5 3. Depuy Attune 5x6mm CR/FB Poly 4. Depuy Attune Patellar Component, Size 32 Indications: I have seen Bev in clinic for symptoms of knee arthritis, confirmed with radiographic findings. [NAME] has exhausted nonoperative methods and was having significant limitations in daily function and desired better function and less pain. I discussed the technical details of a knee replacement. I explained the risks of the procedure to include, but not limited to, bleeding, infection, pain, stiffness, fracture, damage to nerves and vessels, damage to muscles and tendons, loosening, need for repeat procedure, blood clot and cardiopulmonary demise. Despite these risks, [NAME] elected to proceed. Findings: There was significant signs of arthritis throughout the knee. All 3 artemio rtments were involved. There were large osteophytes and multiple loose bodies throughout the entirety of the knee. Procedure Description: Bev was greeted in the preoperative holding area where the correct side was identified and marked. The consent was reviewed with the patient and signed. The history and physical was updated. All questions were answered. Preoperative medications were administered: Acetaminophen 1000mg, Celebrex 400mg, and Gabapentin 300mg. An adductor canal block was then administered by the anesthesia team. Bev was taken back to the operating room. A spinal anesthestic was attempted but unsuccessful, thus converted to general anesthesia. The patient was placed into the supine position on the operating room table. A nonsterile tourniquet was placed high onto the leg but only used for cementing. Posts were placed for positioning during the procedure. All bony prominences were well padded. Prophylactic antibiotics in the form of Cefazolin were administered. 1g of Tranxemic Acid was given intravenously within 30 minutes of incision. The right leg was then prepped with Chloraprep and draped in a standard fashion with impervious stockinette. A second prep with Chloraprep was performed prior to application of Iodine impregnated skin protection. A timeout to confirm correct identity, side and site, procedure, allergies, anesthesia, and medical concerns was performed. With the knee in some flexion, a midline incision was made overlying the knee. Full thickness skin flaps were raised once the extensor mechanism was encountered. These were raised medially and laterally. Any bleeding was controlled with electrocautery. Once the extensor mechanism was fully exposed, a medial parapatellar arthrotomy was performed in a flexed position. All bleeding from the arthrotomy and the geniculate arteries was coagulated. A medial subperiosteal peel was performed with electrocautery to the midcoronal plane. Due to the significant varus deformity the entire medial tibial plateau was exposed. The fat pad was removed while keeping the patellar tendon protected. The anterior distal femur synovium was removed for later visualization. The ACL and PCL were resected and the anterior horn of the lateral meniscus was transected. The knee was then flexed with the patella everted. Large osteophytes from the tibia were removed. Large osteophytes from the femur were removed. The patella was notably enlarged with multiple osteophytes, some attached and some loose which were also removed. Using a step drill, and based on preoperative templating, the femoral canal was entered. This was done with a step drill without any difficulty. The intramedullary distal femoral cut guide was inserted, set to a 5 degree valgus cut and 9mm cut thickness. The distal femoral cut guide was then held in position and pinned. With the soft tissues protected, the distal cut was performed. This was passed over a few times to ensure a planar cut. I then turned attention to the tibia. The extramedullary guide was placed onto the leg. The distal aspect was slid medial to adjust for position of center of ankle and stay in line with shaft of the tibia. Approximately 3-5 degrees of posterior slope was kept in the proximal cutting guide. The center of the guide was aligned with the PCL. The stylus was used to assess cut thickness. Given arthritis in both compartments this was a fairly balanced cut, approximately 5 mm laterally and 6 mm medially, measured from the low spot. This was then held in position and pinned into place with 2 additional pins and a cross pin for stability. The medial and lateral collateral ligaments were protected and the cut was performed. With this completed, it was assessed and noted to be of appropriate dimensions. The guide was removed. A spacer block was inserted and the knee was brought into extension. The 6mm spacer block provided full extension, without hyperextension and with stability of both the medial and lateral collateral ligaments was assessed. The pins from the femur and the tibia were then removed. The distal femur was then sized. The anterior stylus was placed onto the lateral ridge of the anterior femur. This indicated a size 5 femur. The external rotation of the guide was adjusted to 3 degrees to match the epicondyla r axis, perpendicular to [place]?s line. The 4-in-1 cutting guide was the placed. The posterior medial femur cut was evaluated and appeared of good thickness. The spacer block was inserted underneath the cutting guide and stability was confirmed in 90 degrees of flexion. An brenden wing was used to confirm appropriate position of the anterior cut to avoid notching. This cutting guide was ensured to be flush on the cut surface and then pinned into place with headed pins. While protecting the soft tissues, quad tendon, and collateral ligaments, the anterior and posterior cuts were performed with a saw. The central two pins were removed and the posterior and anterior chamfers were cut next. The notch-cutting guide was placed. This was pinned to lateralize the femoral component as much as possible while keeping it flush on the cut surface. This was then pinned into position. A reciprocating saw was used to make the notch cut. A rasp smoothed the cut surfaces. The medial and lateral menisci were removed. A trial femoral component was then inserted, impacted down to the cut surfaces, and the lug holes were drilled. A provisional trial tibial component was placed and the knee was brought through range of motion. There was noted to be excellent extension and flexion. There was no significant instability. The patella was tracking without thumbs. A size 6mm polyethylene component provided the best range of motion and stability with less than 2mm gapping with medial and lateral stress and full extension without significant hyperextension. The tibial cut surface was fully exposed. The tibia was then sized as a 5. The tibia had been previously marked during trialing to correspond to the center of the tibial component to help with rotation. The trial was aligned to this caro, approximately rotated to the medial 1/3rd of the tibial tubercle. The trial was pinned into place. The tibia was prepared with a reamer and a keel punch and lug holes. The knee was then brought into extension and the patella was measured as 21mm. Using the patellar clamp and cut guide, this was resected to a flat surface with at least 13mm of thickness remaining. The size 32 patella fit the best. This was oriented and then clamped into position. The lugs were drilled. The trial components were removed. The final components were opened on the back table. The periosteal and capsular tissues, especially posteriorly, around the knee were then systematically injected with a periarticular cocktail consisting of 246mg of Ropivacaine, 0.5mg of Epinephrine, 0.08mg of Clonidine, and 30mg of Ketorolac, diluted to 100cc. On the back table, with the implants opened, the cement was mixed. One batch of high viscosity cement was prepared with vacuum assistance. After the cement was ready a small amount was placed on the cut surface of the patella and the patellar button was clamped into position and held. While the cement was hardening, the cementless knee components were placed. Starting with the tibial component, the tibia was subluxed anteriorly and the lug holes of the component were lined up. The tibia was then impacted with an impactor and mallet until the tibial component was in contact with the tibia. The final polyethylene component was inserted. Then, the femoral component was inserted. The lug holes were aligned and the component was impacted into position. The knee was irrigated with Surgiphor Betadine solution. This was allowed to sit in the knee for 3 minutes and then it was irrigated out with saline. After the cement had finally cured, approximately 15min, the clamp was removed from the patella and the knee was taken through range of motion. The patella was tracking with a no-thumbs technique. The capsule was then reapproximated with a No. 1 Vicryl at multiple locations. The capsule was finally closed with a No. 2 Stratafix, barbed suture. The second dosing of 1g TXA was started. Deep tissues were then reapproximated with 0 Vicryl and 2-0 Vicryl. The skin was closed with a running 3-0 Monocryl in a subcuticular fashion. This was reinforced with skin glue. A Mepilex silver dressing was applied along with a cxpu-me-cuyou JOSHUA wrap. A CryoCuff was applied. Bev was transferred to the hospital bed without difficulty an suffering no apparent complication. Bev has a good prognosis. Physical therapy will start today and without restrictions, weight-bearing as tolerated. Aspirin 81mg BID will be used for DVT prophylaxis.
--- NOTE | 2023-07-10 16:28 | IN_ITS ---
PT Notes Visit Reasons: R TKR Physical Therapy Day Surgery Initial Evaluation Date: 07/10/2023 Referring Doctor: NIKOLAS Juares PT Orders: PT CONSULT: S/P Ortho surgery Precautions: WBAT on R LE with AD. Patient Profile/Admitting Diagnosis: Bev is a 68-year-old female with degenerative joint disease of the R knee and is status post R total knee arthroplasty on postoperative day 0. PMHX: Medical History (Updated 06/27/23 @ 16:37 by Germania Castillo) Ear pain, right Thyroid nodule Eczema Obesity Pain in right toe(s) Low back pain Dysarthria Dyspepsia High cholesterol Hypertension Arthritis Carotid atherosclerosis Pt. f/u with PCP and follows up with US Surgical History (Updated 07/24/21 @ 09:00 by Germania Castillo) History of total left knee replacement (07/11/21) History of foot surgery left great toe repair x2 History of shoulder surgery removal neurofibro right shoulder Colonoscopy - IV Sedation (04/20/16) Social History/Home Situation: Lives alone in a private home with three steps to enter without rails but with meadows on both sides that she can hold onto. Independent with all aspects of ADLs prior to surgery. Family and friends supportive. Equipment Owned/DME: [facility] Subjective: Pleasant and cooperative. Denies chest pain, headache, and dizziness throughout session. Objective: General Observation: JOSHUA wrap to R LE. Cryocuff to R knee. Nurse Norma ensured that patient was ready to be mobilized off of bed by the time PT arrived. Mental Status: Alert and oriented x 4 Pain: 3/10 pain in the R knee ROM: Left Lower Extremity: Hip flexion WFL. Hip abduction WFL. Knee flexion 10 to 100 degrees. Knee extension -10 degrees. Ankle dorsiflexion WFL. Ankle plantarflexion WFL. Right Lower Extremity: Hip flexion WFL. Hip abduction WFL. Knee flexion WFL. Ankle dorsiflexion WFL. Ankle plantarflexion WFL. Strength: Left Lower Extremity: Hip flexors 5/5. Hip abductors 5/5. Knee flexors 5/5. Knee extensors 5/5. Ankle dorsiflexors 5/5. Ankle plantarflexors 5/5. Right Lower Extremity:Hip flexors 4/5. Hip abductors 4/5. Knee flexors 3-/5. Kn ee extensors 3-/5. Ankle dorsiflexors 4/5. Ankle plantarflexors 5/5. Sensation: Intact as to pain and light pressure in bilateral lower extremities. Bed Mobility/Transfers: Supine to sit supervision Sit to stand contact-guard assist Stand to sit standby assist Bed to chair standby assist Gait: Facilitated safe and correct performance of level surface ambulation using front-wheeled walker for about 150 feet, step-through heel-toe gait pattern. Minimal cues given for increased flexion at the left knee during swing phase. Good left quad activation throughout stance phase. Stairs: Guided patient with safe and correct negotiation of six 4-inch steps and four 6- inch steps while holding on bilateral rails with step to gait pattern requiring standby assist with minimal verbal cueing for movement sequence and for increased knee flexion on the right during ascent. No increase in pain reported. No LOB. Balance: Static Sitting: Normal Dynamic Sitting: Normal Static Standing: Fair Dynamic Standing: Fair Special Tests: Mobility Limitations Standardized Measure [facility] 6 clicks Basic Mobility Inpatient Short Form: Raw Score: 24 CMS Score: 0% deficit Informed Consent/Education: Patient instructed in purpose of PT consult. Packet containing TKA exercise protocol has been given to patient. Education and training on initial set of exercises that can be done at home have been completed with patient. Trained patient with correct performance of exercises below to maximize motor control, joint flexibility, soft tissue extensibility of the R knee musculature: Access Code: [email or web address] URL: [email or web address] Date: 07/10/2023 Prepared by: Ruth Nj Exercises - Supine Quad Set - 1 x daily - 7 x weekly - 1 sets - 10 reps - 5 hold - Supine Heel Slide - 1 x daily - 7 x weekly - 1 sets - 10 reps - 5 hold - Supine Ankle Pumps - 1 x daily - 7 x weekly - 1 sets - 10 reps - 5 hold - Small Range Straight Leg Raise - 1 x daily - 7 x weekly - 1 sets - 10 reps - 5 hold - Seated March - 1 x daily - 7 x weekly - 1 sets - 10 reps - 5 hold Assessment: Bev requires the use of a front-wheeled walker for all mobility ADL performance to maximize independence and reduce fall risk. Patient presents with clinical signs and symptoms consistent with current/admitting diagnoses that have resulted to mobility limitations, gait instability, generalized weakness, and impairment of motor control as demonstrated by the following impairment level findings: 1. Decreased strength to R knee major muscle groups 2. Impaired standing balance 3. Limitation of joint range of motion in R knee flexion Impairments are contributing to the following functional limitations: 1. Inability to safely ambulate without assistive device 2. Increase completion time for mobility ADL performance 3. Increased fall risk Patient is assessed as a 61554 moderate complexity based on the following: History: 66-year-old female with impairment level findings, functional limitations, and past medical history as indicated above Examination: Demonstrable impairment in strength, balance, and mobility level with underlying impairments and functional limitations as documented above Presentation: Evolving Decision Makin moderate complexity Goals: N/A. PT evaluation and 1-2 treatment sessions only for functional mobility tr aining using recommended AD and for HEP instruction. Plan of Care/Treatment Plan: N/A. PT evaluation and 1-2 treatment session only for functional mobility training using recommended AD and for HEP instruction. DISCHARGE RECOMMENDATIONS: Home when medically cleared by orthopedic surgeon. Outpatient PT services to facilitate return to independent community ambulation without an assistive devic e. TREATMENT CODE/TIME: 13601 x 20 minutes for 1 unit, 91965 x 14 minutes for 1 unit beginning at 16:28 PM. Thank you for the opportunity to participate in the care of this patient. Ruth Nj PT, DPT, CLT [facility] [place], [place]
== END 2023-07-10 17:12 | disposition home or self-care (01) ==
PROVIDERS: PCP Nurse Practitioner Family; Visit Provider Student in an Organized Health Care Education/Training Program
PROC: (CPT 27447; principal; 2023-07-10 12:15)
DX: M17.11 Unilateral primary osteoarthritis, right knee (principal); I10 Essential (primary) hypertension; E66.9 Obesity, unspecified; E78.00 Pure hypercholesterolemia, unspecified; Z68.31 Body mass index [BMI] 31.0-31.9, adult
CPT/HCPCS: 27447; C1776; 76942; 97162; 97530; J0690; J1100; J2001; J2250; J2371; J2405

== ENCOUNTER 2023-07-11 10:01 | Observation (INO) | payer MEDICARE, SELFPAY ==
[2023-07-11] VITALS (21 sets, daily range): BP systolic 115–159; BP diastolic 49–76; PULSE 59–97; RESP 12–24; TEMP 36.5–36.9; O2SAT 97–99
--- NOTE | 2023-07-11 10:00 | RT.EKG_ITS ---
APPROVED REPORT Exam: Resting ECG Reason for Exam: loss of consciousness Patient Location: E HR:96 bpm ECG Measurements Heart Rate 96 AXIS MO 143 P 55 QRSd 123 QRS 63 QT 358 T 264 QTc 453 Conclusion Sinus rhythm...normal P axis, V-rate 60- 99 Atrial premature complex...SV complex w/ short R-R interval Left bundle branch block...QRSd>120, broad/notched R ST elevation secondary to IVCD...Multiple VCG criteria LBBB no previous for comparison, No STEMI
--- NOTE | 2023-07-11 10:02 | ED.GENADUL_ITS ---
Discharge Plan Disposition Patient Disposition: Admit to [facility] Condition: Good Discharge Details Clinical Impression: History of total right knee replacement, Syncope and collapse, LBBB (left bundle branch block) Admit Date/Time: 07/11/23 12:49 Admit Provider: Anthony Garrison Attending Provider: Anthony Garrison Primary Care Provider: Rena Hinds ED Provider: Molly Dover Discharge Data Discharge Physician: Molly Dover Medical Decision Making This is a 68-year-old female who is status post right total knee replacement yesterday who presents with a 4 to 5-minute witnessed syncopal episode this morning. She did not appear to have a seizure, she was not incontinent and did not bite her lip or tongue and was not confused after the event. She does have a history of syncope after total left knee replacement. She has no history of coronary artery disease or ACS. It is certainly possible that this is vasovagal syncope although she denied being in significant pain at the time. She did have presyncopal symptoms for several minutes and was able to sit down before she lost consciousness. Her EKG does demonstrate a left bundle branch block and there is no previous for comparison. This raises some concern about a cardiac arrhythmia especially since she is 68 years old and she will likely require admission for further monitoring. I will order blood work including a CBC to check for leukocytosis anemia and left shift, I will check a comprehensive metabolic panel to evaluate her electrolytes glucose renal and liver function. I will order a chest x-ray and fentanyl for her pain. We will keep her n.p.o. until her work-up is complete and we will likely admit her for further observation and cardiac monitoring. Differential Diagnosis Differential Diagnosis: Cardiac arrhythmia, vasovagal syncope, seizure Medical Records Medical records reviewed: Yes I reviewed the patient's medical records. Imaging Data Radiologic Study: Imaging: X-Ray (Portable chest x-ray) Radiologist's impression: No acute pulmonary findings Lab Data Lab results reviewed: Yes I reviewed the patient's lab results. Lab results narrative: Leukocytosis, mild anemia, slight left shift, mild hyponatremia, slight decrease in GFR, mild hyperglycemia, elevated urine specific gravity and ketones suggestive of dehydration, COVID influenza and RSV are negative. ECG Data Attestation: I personally reviewed and interpreted this ECG (s) as follows: Prior ECG tracings: available for review HPI General Mode of arrival: EMS . Date/Time Provider Initiated Documentation: 07/11/23 10:02 . Limitations to Documentation: no limitations . Information obtained by: patient, RN notes reviewed and old records reviewed . History of Present Illness described as moderate, HPI Narrative: Time seen was 10:21 AM in bed 4. The patient is a 68-year-old female who had a total right knee replacement by Dr. Gutiérrez on 07/10/2023 who presents with syncope. The patient states she was standing for about 15 minutes and did feel dizzy for about a minute prior to the syncopal episode. She was able to sit down in a chair and did not fall and injure herself. The event was witnessed by her brother who states she lost consciousness for 4 to 5 minutes. He did not observe any seizure-like activity. She did not bite her tongue or lips and was not incontinent of urine or stool. She returned to baseline quickly and did not appear to have a postictal phase. She currently feels back to normal. The patient tells me that she has had a previous similar episode after taking oxycodone after total knee replacement on the left. She has no history of coronary artery disease. She has been taking oxycodone but has not taken any today. She was standing for prolonged period of time about 15 minutes cooking food for gas when the syncope occurred. She denies any chest pain fever chills. She denies any abdominal pain nausea or vomiting. She is complaining of pain in her right knee consistent with her right total knee replacement yesterday. She denies any shortness of breath. She denies any other aggravating or alleviating factors. Related Data Home Medications Medication Instructions Recorded Confirmed simvastatin 20 mg tablet 20 mg PO HS 09/28/13 07/11/23 Tumeric 2,000 mg PO DAILY 10/12/20 07/11/23 cholecalciferol (vitamin D3) 50 50 mcg PO DAILY 10/12/20 07/11/23 mcg (2,000 unit) tablet (Vitamin D3) famotidine 20 mg tablet 20 mg PO HS 10/12/20 07/11/23 lisinopril 10 mg tablet 10 mg PO HS 10/12/20 07/11/23 loratadine 10 mg tablet (Claritin) 10 mg PO DAILY 10/12/20 07/11/23 cyanocobalamin (vitamin B-12) 1,000 mcg PO DAILY 10/03/22 07/11/23 1,000 mcg capsule turmeric root extract 500 mg 1,000 mg PO DAILY 10/03/22 07/11/23 capsule vitamins A,C,V-pdef-nrayhs 4,296 1 cap PO DAILY 06/28/23 07/11/23 mcg-226 mg-90 mg capsule (PreserVision AREDS) acetaminophen 500 mg tablet 1,000 mg (2 x 500 mg) PO TID #90 07/10/23 07/11/23 tabs aspirin 81 mg tablet,delayed 81 mg PO BID #60 tabs 07/10/23 07/11/23 release betamethasone dipropionate 0.05 % applic topical PRN 07/10/23 topical cream celecoxib 200 mg capsule 200 mg PO BID #60 caps 07/10/23 07/11/23 dexamethasone 4 mg tablet 4 mg PO DAILY #2 tabs 07/10/23 07/11/23 gabapentin 300 mg capsule 300 mg PO QHS #14 caps 07/10/23 07/11/23 oxycodone 5 mg tablet 5 mg PO Q4H PRN pain #20 tabs 07/10/23 07/11/23 pantoprazole 40 mg tablet,delayed 40 mg PO DAILY #30 tabs 07/10/23 07/11/23 release Previous Rx's Medication Instructions Recorded acetaminophen 500 mg tablet 1,000 mg (2 x 500 mg) PO TID #90 07/10/23 tabs aspirin 81 mg tablet,delayed 81 mg PO BID #60 tabs 07/10/23 release celecoxib 200 mg capsule 200 mg PO BID #60 caps 07/10/23 dexamethasone 4 mg tablet 4 mg PO DAILY #2 tabs 07/10/23 gabapentin 300 mg capsule 300 mg PO QHS #14 caps 07/10/23 oxycodone 5 mg tablet 5 mg PO Q4H PRN pain #20 tabs 07/10/23 pantoprazole 40 mg tablet,delayed 40 mg PO DAILY #30 tabs 07/10/23 release Allergies Allergy/AdvReac Type Severity Reaction Status Date / Time codeine AdvReac Severe Nausea Unverified 07/11/23 13:56 Review of Systems Narrative: see hpi PFSH All Active Problems Discharge planning issues (Acute) LBBB (left bundle branch block) (Acute) Syncope and collapse (Acute) History of total right knee replacement (Acute) Skin lesion (Acute) per referral behind Left ear History of arthroscopic knee surgery (Acute) bilat knee arthoscopys, removal loose bodies left knee. Screening for colorectal cancer (Acute) Hallux rigidus of right foot (Acute) Hallux limitus of left foot (Acute) Hammertoe of second toe of left foot (Acute) Osteoarthritis of knee (Chronic) Right DEPO MEDROL 11/08/22 Medical History Ear pain, right Thyroid nodule Eczema Obesity Pain in right toe(s) Low back pain Dysarthria Dyspepsia High cholesterol Hypertension Arthritis Carotid atherosclerosis Pt. f/u with PCP and follows up with [facility] Surgical History History of total left knee replacement (07/11/21) History of foot surgery left great toe repair x2 History of shoulder surgery removal neurofibro right shoulder Colonoscopy - IV Sedation (04/20/16) Social History Smoking/Tobacco Use Status: Former Tobacco Use Quit Date: 09/09/79 Smoking risk assessment performed?: Yes Alcohol Intake: current Alcohol Intake frequency: a few times a week Alcohol type: wine Drug use: Never Substance use type: does not use Housing: house Current gender identity: female Do you feel safe at home: Yes Do you feel safe in your relationship?: Yes Exam Const General: cooperative, healthy appearing, comfortable, no acute distress, well developed, well groomed and well hydrated Nutritional Appearance: average body habitus and well nourished Orientation: alert, awake and oriented x3 HENMT Head: normal to inspection, normocephalic and atraumatic Ears: hearing grossly normal bilaterally and external ears normal General nose exam: external nose normal, nares normal and no nasal discharge Face and sinus: normal facial exam, sinuses nontender and face symmetric Mouth: oral mucosae normal, lip normal, tongue normal, oropharynx normal, moist mucous membranes and other (Normal phonation. The patient is handling secretions.) Throat: posterior oropharynx normal and uvula midline Eyes General: appearance normal, both eyes and all related structures Eyelids: eyelids normal Conjunctivae: conjunctivae normal Sclera: sclerae normal Cornea: corneas normal Pupils: PERRL EOM: EOM intact bilaterally and No nystagmus Neck Neck: normal visual inspection, full ROM, no lymphadenopathy, no meningeal signs, trachea midline and supple Lymphatic: no lymphadenopathy noted Chest Chest: normal inspection of the chest Resp Effort & Inspection: normal respiratory effort, able to speak in complete sentences, no audible wheezes, no nasal flaring, no respiratory distress, no retractions, no stridor, not tachypneic, no tracheal deviation, no use of accessory muscles, No prolonged expiratory phase and other (Normal inspiratory to expiratory ratio.) Auscultation: clear to auscultation bilaterally, no rales, no rhonchi, no wheezes and no rubs Tactile Fremitus: tactile fremitus absent Cardio Jugular venous pressure: no JVD Palpation: normal PMI Rate: regular rate Rhythm: regular rhythm Heart Sounds: S1 normal, S2 normal, no gallops, no murmurs and no rubs GI Inspection: normal to inspection and non-distended Palpation: soft, no hepatosplenomegaly, no guarding and nontender Percussion: normal to percussion Auscultation: normal bowel sounds General: No CVA tenderness Back/Spine/Pelvis Back: no CVA tenderness and No back tenderness Cervical Spine: normal cervical lordosis, cervical ROM normal, No cervical muscular tenderness, No pain with cervical ROM, No cervical spinal tenderness and No step off deformity Thoracic/Lumbar Spine: thoracic and lumbar spine normal to inspection, No thoracic spinal tenderness and No lumbar spinal tenderness Pelvis: no pain with anterior-posterior compression and no pain with lateral compression Skin General skin exam: no rashes or lesions noted, turgor normal, no petechiae, no purpura and other (Skin is normal for ethnicity.) Lesions: no lesions Rashes: no rashes Trauma: no lacerations or abrasions Neuro General: patient alert, patient awake, patient oriented x3, moves all extremities, no meningeal signs, no focal motor deficits and CN's II-XI intact bilaterally Cranial Nerves: CN's II-XI intact bilaterally, PERRL, accommodation normal, EOM intact bilaterally, no nystagmus, facial strength normal, tongue midline, hearing normal and no nystagmus Cognition: normal cognition Speech: speech normal Gait: normal gait Motor: muscle tone normal throughout and strength 5/5 throughout (Except for the right lower extremity, status post right knee replacement) Sensory Exam: no sensory deficits noted Extrem Other: She is moving all of her extremities normally except for the right lower extremity. There is a bandage over the right knee. There is mild swelling she is neurovascularly intact otherwise. She is moving all of her other extremities normally. There is no edema cyanosis or clubbing of any of her other extremities and there is no cyanosis or clubbing of the right lower leg. Psych Appearance: grossly normal Affect: normal affect Attitude: cooperative Thought Process: normal Thought Content: normal Insight: insight good Judgment: judgment good Other: The patient appears to have capacity make medical decisions. Critical Care Time Critical Care Time Total Critical Care Time: 41 Attestation: This includes time at the bedside and with discussion with the patient's brother, review of labs and radiographs and review of old records
--- NOTE | 2023-07-11 10:30 | DI.RAD_ITS ---
Exam(s) XR PORTABLE CHEST AP EXAM: XR PORTABLE CHEST AP CLINICAL HISTORY: syncope TECHNIQUE: 2D digital imaging was performed of the chest. One image was obtained. An AP view was ob tained. COMPARISON: No exams were available for comparison FINDINGS: MEDIASTINUM: Normal. HEART: Normal. PULMONARY VASCULATURE: Normal. LUNGS: Clear. PLEURAL SPACE: No pleural effusion or pneumothorax. BONE:Within normal limits for the patient's age. OTHER FINDINGS:Normal. IMPRESSION: No acute pulmonary findings. DATA REPOSITORY: RADIATION DOSE DELIVERED:
--- NOTE | 2023-07-11 10:30 | RT.EKG_ITS ---
APPROVED REPORT Exam: Resting ECG Reason for Exam: syncope Patient Location: E HR:78 bpm ECG Measurements Heart Rate 78 AXIS DE 146 P 42 QRSd 124 QRS 50 QT 431 T 3 QTc 493 Conclusion Sinus rhythm...normal P axis, V-rate 60- 99 Left bundle branch block...QRSd>120, broad/notched R Left BBB with 1 PVC and one normal beat. No previous available for comparison.
[2023-07-11 10:46] LABS: Abs Immature Grans 0.04 10^3/uL (0.0-0.06); Absolute Basophil Count 0.04 10^3/uL (0.0-0.2); Absolute Eosinophil Count 0.01 10^3/uL (0.0-0.7); Absolute Lymphocyte Count 0.55 10^3/uL (1.2-3.4); Absolute Monocyte Count 0.97 10^3/uL (0.1-0.8); Absolute Neutrophil Count 10.66 10^3/uL (1.2-6.7); Basophils % 0.3; Eosinophils % 0.1; HCT 33.3 % (36.0-46.0); HGB 10.8 g/dL (11.2-15.7); Immature Grans % 0.3; Lymphocytes % 4.5; MCH 27.9 pg (27.0-33.0); MCHC 32.4 % (32.0-36.0); MCV 86 fL (80-95); MPV 8.7 fL (8.0-11.0); Monocytes % 7.9; Neutrophils % 86.9; Platelet Count 255 10^3/uL (130-400); RBC 3.87 10^6/uL (3.93-5.22); RDW 12.4 % (11.7-14.6); WBC 12.27 10^3/uL (4.4-10.8)
[2023-07-11 11:05] LABS: ALT 17 U/L (14-59); AST 13 U/L (15-37); Albumin 3.4 g/dL (3.4-5.0); Alkaline Phosphatase 84 U/L (46-116); Anion Gap 9.2 mmol/L (3-11); BUN 20 mg/dL (7-18); Bilirubin, Total 0.2 mg/dL (0.2-1.0); CO2 23.8 mmol/L (21.0-32.0); CREATININE 1.1 mg/dL (0.55-1.02); Calcium 9.1 mg/dL (8.5-10.1); Chloride 102 mmol/L (98-107); Estimated GFR 54.06 (mL/min/1.73m2); Glucose 147 mg/dL (74-106); Potassium 3.5 mmol/L (3.5-5.1); Sodium 135 mmol/L (136-145); Total Protein 7.2 g/dL (6.4-8.2); Troponin I < 50 ng/L (<or=60)
[2023-07-11] MEDS: ACETAMINOPHEN 1,000 MG/100 ML BTL 400 MG IVPB (11:20)
[2023-07-11] MEDS: fentaNYL 100 MCG/2 ML VIAL 50 MCG IVP (11:22)
[2023-07-11 13:32] LABS: COVID-19 PCR Negative (Negative); Influenza A PCR Negative (Negative); Influenza B PCR Negative (Negative); RSV PCR Negative (Negative); Source Nasopharynx
[2023-07-11 14:23] LABS: Bilirubin Negative (Negative); Blood Negative (Negative); Clarity Clear (Clear); Glucose Negative (Negative); Ketones Trace mg/dL (Negative); Leukocyte Esterase Negative (Negative); Nitrite Negative (Negative); Specific Gravity >= 1.030 (1.005-1.025); Urobilinogen 0.2 mg/dL (Up to 0.2); pH 5.5 (5-8)
[2023-07-11 14:35] LABS: Bacteria Negative HPF (Negative); C & S Indicated? No; Casts 10-20 Hyaline LPF (Negative); Crystals Few Calcium Oxalate HPF (Negative); Epithelial Cells Few HPF (Negative); Mucus Moderate (Negative); RBC 0-2 HPF (0-2); WBC 0-2 HPF (0-5)
--- NOTE | 2023-07-11 14:45 | RT.EKG_ITS ---
APPROVED REPORT Exam: Resting ECG Reason for Exam: EKG changes Patient Location: I HR:74 bpm ECG Measurements Heart Rate 74 AXIS NV 140 P 48 QRSd 78 QRS 30 QT 391 T 54 QTc 434 Conclusion Sinus rhythm...normal P axis, V-rate 50- 99 Ventricular premature complex...V complex w/ short R-R interval
[2023-07-11 14:47] LABS: Troponin I < 50 ng/L (<or=60)
[2023-07-11] MEDS: Dexamethasone 4 MG TAB PO (15:43)
[2023-07-11] MEDS: Acetaminophen 500 MG TAB 1000 MG PO ×2 (15:43→19:50)
[2023-07-11] MEDS: Enoxaparin 40 MG/0.4 ML SYR SC (15:43)
[2023-07-11] MEDS: Aspirin 81 MG CHEW PO (15:43)
--- NOTE | 2023-07-11 15:54 | W.PM.HP.N ---
Date of service: 07/11/23 Time of Service: 15:54 Assessment and Plan Assessment and plan (1) Syncope and collapse: Status: Acute Assessment and plan: Likely orthostatic and related to volume depletion and narcotic pain meds. LR 500ml bolus. Orthostatic BP in AM. (2) LBBB (left bundle branch block): Status: Acute Assessment and plan: Telemetry. Trend troponins. Repeat EKG NSR w/o bundle branch block. (3) History of total right knee replacement: Status: Acute Assessment and plan: Pain control; doing well. (4) Discharge planning issues: Status: Acute Assessment and plan: Likely home Adithya. History of Present Illness History of Present Illness Chief Complaint: Syncope Narrative: This is a 68 yo female with a PMH of left TKA the day before admission, previous R TKA. She endorsed standing in her kitchen for appx 15mins when she started to feel lightheaded so she sat down. She then had a witnessed LOC and was nonresponsive for 4 minutes per bystanders. No seizure like movements. She had no CP, palpitations prior to the event. She has had no shortness of breath. She had a similar episode the day after her previous TKA and no syncope since then until this event. She was noted to have a LBBB in the ED and on monitor this was intermittently noted.Troponin negative x 2. CXR w/o acute process. UA neg. WBC count mildly elevated at 12.27. Hgb 10.8. Plt 255. Na 135. K 3.5. BUN 20. Cr 1.1 (baseline 0.8-1.0). She will be admitted for telemetry monitoring. Review of Systems All systems reviewed & are unremarkable except as noted in HPI and below PFSH All Active Problems (Updated 07/11/23 @ 16:16 by Anthony Garrison MD) Discharge planning issues (Acute) LBBB (left bundle branch block) (Acute) Syncope and collapse (Acute) History of total right knee replacement (Acute) Skin lesion (Acute) per referral behind Left ear History of arthroscopic knee surgery (Acute) bilat knee arthoscopys, removal loose bodies left knee. Screening for colorectal cancer (Acute) Hallux rigidus of right foot (Acute) Hallux limitus of left foot (Acute) Hammertoe of second toe of left foot (Acute) Osteoarthritis of knee (Chronic) Right DEPO MEDROL 11/08/22 Medical History Ear pain, right Thyroid nodule Eczema Obesity Pain in right toe(s) Low back pain Dysarthria Dyspepsia High cholesterol Hypertension Arthritis Carotid atherosclerosis Pt. f/u with PCP and follows up with [facility] Surgical History History of total left knee replacement (07/11/21) History of foot surgery left great toe repair x2 History of shoulder surgery removal neurofibro right shoulder Colonoscopy - IV Sedation (04/20/16) Social History Smoking/Tobacco Use Status: Former Tobacco Use Quit Date: 09/09/79 Smoking risk assessment performed?: Yes Alcohol Intake: current Alcohol Intake frequency: a few times a week Alcohol type: wine Drug use: Never Substance use type: does not use Housing: house Current gender identity: female Do you feel safe at home: Yes Do you feel safe in your relationship?: Yes Meds Allergies and Home Medications Allergies Allergy/AdvReac Type Severity Reaction Status Date / Time codeine AdvReac Severe Nausea Unverified 07/11/23 13:56 Home Medications Medication Instructions Recorded Confirmed Type simvastatin 20 mg tablet 20 mg PO HS 09/28/13 07/11/23 History Tumeric 2,000 mg PO DAILY 10/12/20 07/11/23 History cholecalciferol (vitamin D3) 50 50 mcg PO DAILY 10/12/20 07/11/23 History mcg (2,000 unit) tablet (Vitamin D3) famotidine 20 mg tablet 20 mg PO HS 10/12/20 07/11/23 History lisinopril 10 mg tablet 10 mg PO HS 10/12/20 07/11/23 History loratadine 10 mg tablet (Claritin) 10 mg PO DAILY 10/12/20 07/11/23 History cyanocobalamin (vitamin B-12) 1,000 mcg PO DAILY 10/03/22 07/11/23 History 1,000 mcg capsule turmeric root extract 500 mg 1,000 mg PO DAILY 10/03/22 07/11/23 History capsule vitamins A,C,B-kqtj-khditg 4,296 1 cap PO DAILY 06/28/23 07/11/23 History mcg-226 mg-90 mg capsule (PreserVision AREDS) acetaminophen 500 mg tablet 1,000 mg (2 x 500 mg) PO TID #90 07/10/23 07/11/23 Rx tabs aspirin 81 mg tablet,delayed 81 mg PO BID #60 tabs 07/10/23 07/11/23 Rx release betamethasone dipropionate 0.05 % applic topical PRN 07/10/23 History topical cream celecoxib 200 mg capsule 200 mg PO BID #60 caps 07/10/23 07/11/23 Rx dexamethasone 4 mg tablet 4 mg PO DAILY #2 tabs 07/10/23 07/11/23 Rx gabapentin 300 mg capsule 300 mg PO QHS #14 caps 07/10/23 07/11/23 Rx oxycodone 5 mg tablet 5 mg PO Q4H PRN pain #20 tabs 07/10/23 07/11/23 Rx pantoprazole 40 mg tablet,delayed 40 mg PO DAILY #30 tabs 07/10/23 07/11/23 Rx release Exam Narrative Exam Narrative: Gen: Lying in bed. Pleasant, cooperative, NAD HEENT: sclera clear, PERRL, MMM Lungs: clear. Nonlabored breathing. CV: RRR, no murmur. Abd: soft, NT, ND Exts: LLE with GABRIELLA hose in place. RLE with JOSHUA wrap over knee bandages. No pedal edema. No calf pain. Neuro: No focal motor deficits. No tremor. Psych: Gen appearance, speech are normal. Affect is normal/appropriate. Results Labs 07/11/23 10:35 07/11/23 10:35 Labs: Laboratory Results - last 24 hr 07/11/23 07/11/23 07/11/23 10:35 12:31 14:05 WBC 12.27 H RBC 3.87 L Hgb 10.8 L Hct 33.3 L MCV 86 MCH 27.9 MCHC 32.4 RDW 12.4 Plt Count 255 MPV 8.7 Immature Gran % 0.3 Neutrophils % 86.9 Lymphocytes % 4.5 Monocytes % 7.9 Eosinophils % 0.1 Basophils % 0.3 Nucleated RBC % 0.0 Absolute Neutrophils 10.66 H Absolute Lymphocytes 0.55 L Absolute Monocytes 0.97 H Absolute Eosinophils 0.01 Absolute Basophils 0.04 Sodium 135 L Potassium 3.5 Chloride 102 Carbon Dioxide 23.8 Anion Gap 9.2 BUN 20 H Creatinine 1.1 H Est GFR (CKD-EPI 2020) 54.06 Glucose 147 H Calcium 9.1 Magnesium 2.0 Total Bilirubin 0.2 AST 13 L ALT 17 Alkaline Phosphatase 84 Troponin I < 50 < 50 Total Protein 7.2 Albumin 3.4 Urine Color Urine Clarity Urine pH Ur Specific University Urine Protein Urine Ketones Urine Blood Urine Nitrite Urine Bilirubin Urine Urobilinogen Ur Leukocyte Esterase Urine RBC Urine WBC Ur Epithelial Cells Urine Crystals Urine Bacteria Urine Casts Urine Mucus Ur Culture Indicated? Urine Glucose COVID-19 Source Nasopharynx SARS-CoV-2 (PCR) Negative Influenza Type A (PCR) Negative Influenza Type B (PCR) Negative RSV (PCR) Negative 07/11/23 14:13 WBC RBC Hgb Hct MCV MCH MCHC RDW Plt Count MPV Immature Gran % Neutrophils % Lymphocytes % Monocytes % Eosinophils % Basophils % Nucleated RBC % Absolute Neutrophils Absolute Lymphocytes Absolute Monocytes Absolute Eosinophils Absolute Basophils Sodium Potassium Chloride Carbon Dioxide Anion Gap BUN Creatinine Est GFR (CKD-EPI 2020) Glucose Calcium Magnesium Total Bilirubin AST ALT Alkaline Phosphatase Troponin I Total Protein Albumin Urine Color Yellow Urine Clarity Clear Urine pH 5.5 Ur Specific University >= 1.030 H Urine Protein Trace H Urine Ketones Trace H Urine Blood Negative Urine Nitrite Negative Urine Bilirubin Negative Urine Urobilinogen 0.2 Ur Leukocyte Esterase Negative Urine RBC 0-2 Urine WBC 0-2 Ur Epithelial Cells Few Urine Crystals Few Calcium Oxalate Urine Bacteria Negative Urine Casts 10-20 Hyaline Urine Mucus Moderate Ur Culture Indicated? No Urine Glucose Negative COVID-19 Source SARS-CoV-2 (PCR) Influenza Type A (PCR) Influenza Type B (PCR) RSV (PCR) Last Vital Signs Temp 36.5 C 07/11/23 14:27 Pulse 80 07/11/23 14:27 Resp 20 07/11/23 14:27 BP 136/70 07/11/23 14:27 Pulse Ox 98 07/11/23 14:27 Time Spent Time spent with Patient: 40-54 minutes Time was spent: preparing to see the patient(eg.review tests), obtaining and/or reviewing separately otained hiistory, ordering medications,tests, procedures, referring, communicating with other health medicare contact specialist, indepentently interpreting results and counseling the patient
[2023-07-11] MEDS: Lactated Ringers 500 ML IV (16:00)
[2023-07-11] MEDS: Potassium Chloride 20 MEQ TABCR PO (16:21)
[2023-07-11 18:50] LABS: Troponin I < 50 ng/L (<or=60)
[2023-07-11] MEDS: Celecoxib 200 MG CAP PO (19:50)
[2023-07-11] MEDS: Aspirin E.C. 81 MG TABEC PO (19:50)
[2023-07-11] MEDS: Famotidine 20 MG TAB PO (21:30)
[2023-07-11] MEDS: Simvastatin 20 MG TAB PO (21:31)
[2023-07-11] MEDS: Gabapentin 300 MG CAP PO (21:31)
[2023-07-11] MEDS: Lisinopril 10 MG TAB PO (21:31)
[2023-07-12 06:36] LABS: Abs Immature Grans 0.03 10^3/uL (0.0-0.06); Absolute Basophil Count 0.02 10^3/uL (0.0-0.2); Absolute Lymphocyte Count 0.67 10^3/uL (1.2-3.4); Absolute Monocyte Count 0.85 10^3/uL (0.1-0.8); Absolute Neutrophil Count 5.45 10^3/uL (1.2-6.7); Basophils % 0.3; HCT 29.5 % (36.0-46.0); HGB 9.5 g/dL (11.2-15.7); Immature Grans % 0.4; Lymphocytes % 9.5; MCH 27.5 pg (27.0-33.0); MCHC 32.2 % (32.0-36.0); MCV 85 fL (80-95); MPV 9.2 fL (8.0-11.0); Monocytes % 12.1; Neutrophils % 77.7; Platelet Count 255 10^3/uL (130-400); RBC 3.46 10^6/uL (3.93-5.22); RDW 12.6 % (11.7-14.6); RDW-SD 39.2 fL; WBC 7.02 10^3/uL (4.4-10.8)
[2023-07-12 06:55] LABS: Anion Gap 9.4 mmol/L (3-11); BUN 15 mg/dL (7-18); CO2 25.6 mmol/L (21.0-32.0); CREATININE 0.7 mg/dL (0.55-1.02); Calcium 8.9 mg/dL (8.5-10.1); Chloride 104 mmol/L (98-107); Estimated GFR 92.98 (mL/min/1.73m2); Glucose 100 mg/dL (74-106); Potassium 4.1 mmol/L (3.5-5.1); Sodium 139 mmol/L (136-145)
[2023-07-12] MEDS: Aspirin E.C. 81 MG TABEC PO (07:34)
[2023-07-12] MEDS: Cholecalciferol (Vitamin D3) 1,000 UNIT TAB 2000 UNITS PO (07:34)
[2023-07-12] MEDS: Acetaminophen 500 MG TAB 1000 MG PO (07:35)
[2023-07-12] MEDS: Dexamethasone 4 MG TAB PO (07:35)
[2023-07-12] MEDS: Celecoxib 200 MG CAP PO (07:35)
[2023-07-12] MEDS: Pantoprazole 40 MG TABCR PO (07:36)
[2023-07-12 07:46] VITALS: BP 145/73; PULSE 82; RESP 19; TEMP 36.8; O2SAT 98
[2023-07-12 11:41] VITALS: BP 143/73; PULSE 74; RESP 18; TEMP 36.7; O2SAT 98
--- NOTE | 2023-07-12 11:52 | DSE_ITS ---
Date of service: 07/12/23 Time of Service: 12:04 DS: Diagnosis Discharge Diagnosis (1) Syncope and collapse: Status: Acute Asessment and Plan: Patient has history of similar syncopal like episode after having her contralateral knee replaced and taking opiate pain medication. She did not have any changed on tele overnight, had normal labs and vitals, and was able to ambulate around her room in the morning without any issues and was therefore determined to be stable for discharge. (2) LBBB (left bundle branch block): Status: Acute Asessment and Plan: -as seen on tele in ED, though has not been on EKGs or tele overnight so may be artifact (3) History of total right knee replacement: Status: Acute (4) Discharge planning issues: Status: Acute Discharge Plan Disposition Patient Disposition: Home Condition: Stable Discharge Details Reason For Visit: Syncope Admit Date/Time: 07/11/23 12:49 Admit Provider: Anthony Garrison Attending Provider: Anthony Garrison Primary Care Provider: Rena Hinds [facility] Hospital Course: Presented with syncope after knee replacement and taking oxycodone with a similar episode occurring after contralateral knee replacement in the past. Labs, EKG, tele were all WNLs and patient was able to ambulate in the AM without any symptoms. Home Meds and New Rx's Prescriptions: Continued PreserVision AREDS 4,296 mcg-226 mg-90 mg capsule 1 cap PO DAILY turmeric root extract 500 mg capsule 1,000 mg PO DAILY cyanocobalamin (vitamin B-12) 1,000 mcg capsule 1,000 mcg PO DAILY simvastatin 20 MG tablet 20 mg PO HS betamethasone dipropionate 0.05 % cream TOPICAL PRN Patient Comments: APPLY SPARINGLY ONCE TO TWICE DAILY NEEDED TO AFFECTED AREAS acetaminophen 500 mg tablet 1,000 mg PO TID Qty: 90 3RF celecoxib 200 mg capsule 200 mg PO BID Qty: 60 0RF aspirin 81 mg tablet,delayed release (DR/EC) 81 mg PO BID Qty: 60 0RF pantoprazole 40 mg tablet,delayed release (DR/EC) 40 mg PO DAILY Qty: 30 0RF dexamethasone 4 mg tablet 4 mg PO DAILY Qty: 2 0RF gabapentin 300 mg capsule 300 mg PO QHS Qty: 14 0RF loratadine [Claritin] 10 mg Tablet 10 mg PO DAILY cholecalciferol (vitamin D3) [Vitamin D3] 50 mcg (2,000 unit) Tablet 50 mcg PO DAILY Tumeric 1,000 mg tablet 2,000 mg PO DAILY famotidine 20 mg tablet 20 mg PO HS Patient Comments: TK 1 T PO D lisinopril 10 mg tablet 10 mg PO HS Patient Comments: TAKE 1 TABLET BY MOUTH EVERY DAY Discontinued oxycodone 5 mg tablet 5 mg PO Q4H MDD 6 tabs PRN (Reason: pain) Qty: 20 0RF Discharge Instructions Instructions: Syncope (DC) Stand Alone Forms: Nursing Discharge Form Referrals: Rena Hinds [Primary Care Provider] - 07/22/23 1:45 pm Activity:: Activity as Tolerated Equipment/Supplies:: No Equipment Needed Diet:: As Tolerated Discharge Orders Discharge Orders: Discharge Order (Routine); Ordered 07/12/23 Ordered By: Yury Curiel DS: Summary Time Spent with Patient providing and/or coordinating discharge services: Greater than 30 minutes Status at Discharge Functional status at discharge: uses cane/walker Overall status at discharge: patient is back to baseline Mental Status: mental status grossly normal Speech and Movement: speech and movement normal Mood: congruent mood Affect: normal affect Exam Narrative Exam Narrative: Well appearing older female laying in bed in no acute distress, AOx4, heart RRR, lungs CTAB, right knee decreased ROM secondary to pain Psych Mental Status: mental status grossly normal Speech and Movement: speech and movement normal Mood: congruent mood Affect: normal affect DS: Data Vitals/I&O Vitals and I&O: Vital Signs Temperature 98.1 F 07/12/23 11:41 Temperature Source Tympanic 07/12/23 11:41 Pulse 74 07/12/23 11:41 Pulse Rhythm Regular 07/12/23 07:45 Pulse 76 07/11/23 13:50 Respiratory Rate 18 07/12/23 11:41 Respiratory Effort Normal 07/12/23 07:45 Respiratory Depth Normal 07/12/23 07:45 Respiratory Pattern Normal 07/12/23 07:45 Blood Pressure 143/73 H 07/12/23 11:41 Blood Pressure Mean 78 07/11/23 13:46 Blood Pressure Position Sitting 07/11/23 10:08 Pulse Oximetry 98 07/12/23 11:41 Oxygen Delivery Method Room Air 07/12/23 11:41 Oxygen Flow Rate 0 07/12/23 11:41 Pain Level 0 07/12/23 11:41 Comment bp called over radio 07/12/23 07:46 Intake & Output 07/11/23 07/12/23 07/12/23 17:59 05:59 17:59 Intake Total 500 / 500 500 / 1000 Output Total 350 / 350 Balance 500 / 500 500 / 1000 -350 / -350 Weight 190 lb 14.052 oz Intake: IV 500 / 500 500 / 1000 Output: Urine 350 / 350 Other: Urine Color Yellow Yellow Urine Appearance Clear Clear Voiding Methods Toilet Toilet Data Completed and Pending Labs on day of discharge: Labs from last 24 hours 07/12/23 07/11/23 07/11/23 06:16 18:16 14:13 WBC 7.02 RBC 3.46 L Hgb 9.5 L Hct 29.5 L MCV 85 MCH 27.5 MCHC 32.2 RDW 12.6 Plt Count 255 MPV 9.2 Immature Gran % 0.4 Neutrophils % 77.7 Lymphocytes % 9.5 Monocytes % 12.1 Eosinophils % 0.0 Basophils % 0.3 Nucleated RBC % 0.0 Absolute Neutrophils 5.45 Absolute Lymphocytes 0.67 L Absolute Monocytes 0.85 H Absolute Eosinophils 0.00 Absolute Basophils 0.02 Sodium 139 Potassium 4.1 Chloride 104 Carbon Dioxide 25.6 Anion Gap 9.4 BUN 15 Creatinine 0.7 Est GFR (CKD-EPI 2020) 92.98 Glucose 100 Calcium 8.9 Troponin I < 50 Urine Color Yellow Urine Clarity Clear Urine pH 5.5 Ur Specific Il[place] >= 1.030 H Urine Protein Trace H Urine Ketones Trace H Urine Blood Negative Urine Nitrite Negative Urine Bilirubin Negative Urine Urobilinogen 0.2 Ur Leukocyte Esterase Negative Urine RBC 0-2 Urine WBC 0-2 Ur Epithelial Cells Few Urine Crystals Few Calcium Oxalate Urine Bacteria Negative Urine Casts 10-20 Hyaline Urine Mucus Moderate Ur Culture Indicated? No Urine Glucose Negative COVID-19 Source SARS-CoV-2 (PCR) Influenza Type A (PCR) Influenza Type B (PCR) RSV (PCR) 07/11/23 07/11/23 14:05 12:31 WBC RBC Hgb Hct MCV MCH MCHC RDW Plt Count MPV Immature Gran % Neutrophils % Lymphocytes % Monocytes % Eosinophils % Basophils % Nucleated RBC % Absolute Neutrophils Absolute Lymphocytes Absolute Monocytes Absolute Eosinophils Absolute Basophils Sodium Potassium Chloride Carbon Dioxide Anion Gap BUN Creatinine Est GFR (CKD-EPI 2020) Glucose Calcium Troponin I < 50 Urine Color Urine Clarity Urine pH Ur Specific [place] Urine Protein Urine Ketones Urine Blood Urine Nitrite Urine Bilirubin Urine Urobilinogen Ur Leukocyte Esterase Urine RBC Urine WBC Ur Epithelial Cells Urine Crystals Urine Bacteria Urine Casts Urine Mucus Ur Culture Indicated? Urine Glucose COVID-19 Source Nasopharynx SARS-CoV-2 (PCR) Negative Influenza Type A (PCR) Negative Influenza Type B (PCR) Negative RSV (PCR) Negative PFSH All Active Problems Discharge planning issues (Acute) LBBB (left bundle branch block) (Acute) Syncope and collapse (Acute) History of total right knee replacement (Acute) Skin lesion (Acute) per referral behind Left ear History of arthroscopic knee surgery (Acute) bilat knee arthoscopys, removal loose bodies left knee. Screening for colorectal cancer (Acute) Hallux rigidus of right foot (Acute) Hallux limitus of left foot (Acute) Hammertoe of second toe of left foot (Acute) Osteoarthritis of knee (Chronic) Right DEPO MEDROL 11/08/22 Medical History Ear pain, right Thyroid nodule Eczema Obesity Pain in right toe(s) Low back pain Dysarthria Dyspepsia High cholesterol Hypertension Arthritis Carotid atherosclerosis Pt. f/u with PCP and follows up with [facility] Surgical History History of total left knee replacement (07/11/21) History of foot surgery left great toe repair x2 History of shoulder surgery removal neurofibro right shoulder Colonoscopy - IV Sedation (04/20/16) Social History Smoking/Tobacco Use Status: Former Tobacco Use Quit Date: 09/09/79 Smoking risk assessment performed?: Yes Alcohol Intake: current Alcohol Intake frequency: a few times a week Alcohol type: wine Drug use: Never Substance use type: does not use Housing: house Current gender identity: female Do you feel safe at home: Yes Do you feel safe in your relationship?: Yes Time Spent with Patient Time Spent with Patient: <45 minutes (35min) Time was spent: preparing to see the patient(eg.review tests), obtaining and/or reviewing separately otained hiistory, referring, communicating with other health respiratory care assistant, indepentently interpreting results, counseling the patient and care coordination
--- NOTE | 2023-07-12 12:55 | CHAPLAIN ---
I met Bev yesterday when she was in the ED. Her search engine optimization manager, Rev. Cameron Ovalle called to see if I would check in on her. Bev had her second knee replaced a couple of days ago and then after standing for a few minutes at home, felt light headed, someone with her said she passed our briefly. Bev doesn't remember that. Neighbors saw the ambulance at her home and called Cameron. Bev said something similar happened when her had her first knee replaced. Today she said she expects to go home this afternoon and is feeling well.
== END 2023-07-12 13:31 | disposition home or self-care (01) ==
LOC: ER 12:47 → MS 14:20
PROVIDERS: Admitting Provider Family Medicine; Emergency Provider Emergency Medicine Emergency Medical Services; PCP Nurse Practitioner Family; Visit Provider Family Medicine
DX: R55 Syncope and collapse (principal); I44.7 Left bundle-branch block, unspecified; Z96.653 Presence of artificial knee joint, bilateral; E04.1 Nontoxic single thyroid nodule; L30.9 Dermatitis, unspecified; E66.9 Obesity, unspecified; M54.50 Low back pain, unspecified; E78.00 Pure hypercholesterolemia, unspecified; I10 Essential (primary) hypertension; I65.29 Occlusion and stenosis of unspecified carotid artery; Z87.891 Personal history of nicotine dependence; Z79.899 Other long term (current) drug therapy; Z79.82 Long term (current) use of aspirin
CPT/HCPCS: 00123; 36415; 80048; 80053; 87637; 93005; 96361; 96372; 96374; 96375; 99285; J1650; 71045; 81003; 81015; 83735; 84484; 85025; 93010; 99223; 99239; G0378; J0131; J3010; J8540

== ENCOUNTER 2023-07-14 08:16 | Emergency (ER) | payer MEDICARE, SELFPAY ==
[2023-07-14 08:20] VITALS: BP 169/84; PULSE 112; RESP 16; TEMP 37; O2SAT 98
--- NOTE | 2023-07-14 08:37 | NUR.NOTE ---
Nursing Note: dressing take down per provider. Wound cleaned with NS and sterile gauze. Surgical wound well approximated with small amount of clear bloody drainage. Lilia wound warm to touch with redness and bruising
--- NOTE | 2023-07-14 08:49 | W.ED.GENAD ---
Discharge Plan Disposition Patient Disposition: Home Condition: Stable Discharge Details Clinical Impression: Draining postoperative wound Primary Care Provider: Rena Hinds ED Provider: Amrit Garner Home Meds and New Rx's Prescriptions: Continued PreserVision AREDS 4,296 mcg-226 mg-90 mg capsule 1 cap PO DAILY turmeric root extract 500 mg capsule 1,000 mg PO DAILY cyanocobalamin (vitamin B-12) 1,000 mcg capsule 1,000 mcg PO DAILY simvastatin 20 MG tablet 20 mg PO HS betamethasone dipropionate 0.05 % cream 1 applic TOPICAL DAILY PRN Patient Comments: APPLY SPARINGLY ONCE TO TWICE DAILY NEEDED TO AFFECTED AREAS acetaminophen 500 mg tablet 1,000 mg PO TID Qty: 90 3RF celecoxib 200 mg capsule 200 mg PO BID Qty: 60 0RF aspirin 81 mg tablet,delayed release (DR/EC) 81 mg PO BID Qty: 60 0RF pantoprazole 40 mg tablet,delayed release (DR/EC) 40 mg PO DAILY Qty: 30 0RF gabapentin 300 mg capsule 300 mg PO QHS Qty: 14 0RF loratadine [Claritin] 10 mg Tablet 10 mg PO DAILY cholecalciferol (vitamin D3) [Vitamin D3] 50 mcg (2,000 unit) Tablet 50 mcg PO DAILY Tumeric 1,000 mg tablet 2,000 mg PO DAILY famotidine 20 mg tablet 20 mg PO HS Patient Comments: TK 1 T PO D lisinopril 10 mg tablet 10 mg PO HS Patient Comments: TAKE 1 TABLET BY MOUTH EVERY DAY Discharge Instructions Additional Instructions: Maintain sterile dressing. Change dressing if saturated. Please follow-up with orthopedics tomorrow. Call the office. Please follow-up with your primary care physician regarding your prior hospitalization for episode of dizziness/syncope and left bundle branch block that was noted on EKG. Please contact your primary care physician to arrange follow-up. Return to the ER immediately for any worsening or new concerning symptoms. Referrals: [facility] [Provider Group] Rena Hinds [Primary Care Provider] - Discharge Data Discharge Date/Time-TO BE ENTERED AT DEPARTURE: 07/14/23 09:36 Medical Decision Making 68-year-old female here 4 days status post right total knee replacement with oozing postoperative wound. No signs of infection. Suspect small seroma that is continued to ooze from proximal wound. No wound dehiscence. Plan to apply absorbent dressing and will review dressing change with the patient. I will have her call orthopedics tomorrow to follow-up. HPI General Mode of arrival: ambulatory. Date/Time Provider Initiated Documentation: 07/14/23 08:17. Limitations to Documentation: no limitations. Information obtained by: patient. HPI Narrative: 68-year-old female here 4 days status post right total knee replacement with oozing postoperative wound. No redness, warmth, or fever. Related Data Home Medications Medication Instructions Recorded Confirmed simvastatin 20 mg tablet 20 mg PO HS 09/28/13 07/15/23 Tumeric 2,000 mg PO DAILY 10/12/20 07/15/23 cholecalciferol (vitamin D3) 50 50 mcg PO DAILY 10/12/20 07/15/23 mcg (2,000 unit) tablet (Vitamin D3) famotidine 20 mg tablet 20 mg PO HS 10/12/20 07/15/23 lisinopril 10 mg tablet 10 mg PO HS 10/12/20 07/15/23 loratadine 10 mg tablet (Claritin) 10 mg PO DAILY 10/12/20 07/15/23 cyanocobalamin (vitamin B-12) 1,000 mcg PO DAILY 10/03/22 07/15/23 1,000 mcg capsule turmeric root extract 500 mg 1,000 mg PO DAILY 10/03/22 07/15/23 capsule vitamins A,C,S-bgmq-pjgfwe 4,296 1 cap PO DAILY 06/28/23 07/15/23 mcg-226 mg-90 mg capsule (PreserVision AREDS) acetaminophen 500 mg tablet 1,000 mg (2 x 500 mg) PO TID #90 07/10/23 07/15/23 tabs aspirin 81 mg tablet,delayed 81 mg PO BID #60 tabs 07/10/23 07/15/23 release betamethasone dipropionate 0.05 % 1 applic topical DAILY PRN 07/10/23 07/15/23 topical cream celecoxib 200 mg capsule 200 mg PO BID #60 caps 07/10/23 07/15/23 gabapentin 300 mg capsule 300 mg PO QHS #14 caps 07/10/23 07/15/23 pantoprazole 40 mg tablet,delayed 40 mg PO DAILY #30 tabs 07/10/23 07/15/23 release Previous Rx's Medication Instructions Recorded acetaminophen 500 mg tablet 1,000 mg (2 x 500 mg) PO TID #90 07/10/23 tabs aspirin 81 mg tablet,delayed 81 mg PO BID #60 tabs 07/10/23 release celecoxib 200 mg capsule 200 mg PO BID #60 caps 07/10/23 gabapentin 300 mg capsule 300 mg PO QHS #14 caps 07/10/23 pantoprazole 40 mg tablet,delayed 40 mg PO DAILY #30 tabs 07/10/23 release Allergies Allergy/AdvReac Type Severity Reaction Status Date / Time codeine AdvReac Severe Nausea Unverified 07/15/23 14:55 General Stated Complaint: Cellulitis NYLA: 3 Review of Systems Constitutional Constitutional: Denies fever(s) Musculoskeletal Musculoskeletal: Reports as per HPI PFSH All Active Problems (Updated 07/14/23 @ 08:50 by Amrit Garner MD) Draining postoperative wound (Acute) Syncope and collapse (Acute) History of total right knee replacement (Chronic 07/10/23) Skin lesion (Acute) per referral behind Left ear History of arthroscopic knee surgery (Acute) bilat knee arthoscopys, removal loose bodies left knee. Screening for colorectal cancer (Acute) Hallux rigidus of right foot (Acute) Hallux limitus of left foot (Acute) Hammertoe of second toe of left foot (Acute) Osteoarthritis of knee (Chronic) Right DEPO MEDROL 11/08/22 Medical History Ear pain, right Thyroid nodule Eczema Obesity Pain in right toe(s) Low back pain Dysarthria Dyspepsia High cholesterol Hypertension Arthritis Carotid atherosclerosis Pt. f/u with PCP and follows up with [facility] Surgical History History of total left knee replacement (07/11/21) History of foot surgery left great toe repair x2 History of shoulder surgery removal neurofibro right shoulder Colonoscopy - IV Sedation (04/20/16) Social History Smoking/Tobacco Use Status: Former Tobacco Use Quit Date: 09/09/79 Smoking risk assessment performed?: Yes Alcohol Intake: current Alcohol Intake frequency: a few times a week Alcohol type: wine Drug use: Never Substance use type: does not use Housing: house Current gender identity: female Do you feel safe at home: Yes Do you feel safe in your relationship?: Yes Exam Extrem Right lower extremity: knee (Midline surgical scar, stapled, oozing serosanguineous fluid from proximal ) Details: swelling; no unusual warmth Course Vital Signs Vital signs: Vital Signs Temperature 37.0 C 07/14/23 08:20 Pulse 112 H 07/14/23 08:20 Respiratory Rate 16 07/14/23 08:20 Blood Pressure 169/84 H 07/14/23 08:20 Pulse Oximetry 98 07/14/23 08:20 Temperature 37.0 C 07/14/23 08:20 Temperature Source Oral 07/14/23 08:20 Pulse 112 H 07/14/23 08:20 Respiratory Rate 16 07/14/23 08:20 Respiratory Effort Normal, Non-Labored 07/14/23 08:22 Blood Pressure 169/84 H 07/14/23 08:20 Pulse Oximetry 98 07/14/23 08:20 Oxygen Delivery Method Room Air 07/14/23 08:20 Oxygen Flow Rate 0 07/14/23 08:20 Pain Level 5 07/14/23 08:40
== END 2023-07-14 09:36 | disposition home or self-care (01) ==
PROVIDERS: Emergency Provider Student in an Organized Health Care Education/Training Program; PCP Nurse Practitioner Family
DX: T81.89XA Other complications of procedures, not elsewhere classified, initial encounter (principal); Z98.890 Other specified postprocedural states; Z96.651 Presence of right artificial knee joint
CPT/HCPCS: 99281; 99282

== ENCOUNTER → 2023-07-15 14:39 | Outpatient (BNVA) | payer MEDICARE, SELFPAY | PROVIDERS: PCP Nurse Practitioner Family; Referring Provider Nurse Practitioner Family; Visit Provider Student in an Organized Health Care Education/Training Program | DX: Z47.1 Aftercare following joint replacement surgery (principal); Z96.651 Presence of right artificial knee joint; T81.89XA Other complications of procedures, not elsewhere classified, initial encounter ==

== ENCOUNTER 2023-07-25 12:08 | Outpatient (CLI) | payer MEDICARE, SELFPAY ==
--- NOTE | 2023-07-25 11:15 | DI.RAD_ITS ---
Exam(s) XR KNEE LT 2V AP,LAT EXAM: XR KNEE LT 2V AP,LAT INDICATION: annual f/u L TKA. COMPARISON: CR XR STANDING ALIGNMENT from 07/25/2023 TECHNIQUE: 2D digital imaging was performed. Two views. FINDINGS: There has been no change in the alignment of the total knee prosthesis. No abnormal bony lucencies a re seen. Small joint effusion present. DATA REPOSITORY: RADIATION DOSE DELIVERED:
--- NOTE | 2023-07-25 11:15 | DI.RAD_ITS ---
Exam(s) XR KNEE RT 1V EXAM: XR KNEE RT 1V CLINICAL HISTORY: 1ST POST OP S/P R TKA. TECHNIQUE: 2D digital imaging was performed. Lateral view. COMPARISON: CR XR KNEE RT 1V from 06/28/2023 CR XR STANDING ALIGNMENT from 07/25/2023 FINDINGS: A total knee prosthesis has been placed. The alignment is satisfactory. Anterior soft tissue swelli ng. IMPRESSION: DATA REPOSITORY: RADIATION DOSE DELIVERED:
--- NOTE | 2023-07-25 11:15 | DI.RAD_ITS ---
Exam(s) XR STANDING ALIGNMENT EXAM: XR STANDING ALIGNMENT CLINICAL HISTORY: 1ST POST OP S/P R TKA. TECHNIQUE: 2D digital imaging was performed. Standing AP views were performed from the pelvis throu gh the ankles. COMPARISON: CR XR STANDING ALIGNMENT from 06/28/2023 CR XR KNEE LT 2V AP,LAT from 07/25/2023 FINDINGS: BONES: No acute fracture is present. No bony destructive lesion is seen. Leg length discrepancy: Left femoral head projects approximately 1 cm superior to the right. JOINTS: Knees: Bilateral total knee prostheses appear unchanged. The ankle joints show mild joint space narrowing medially. Spurring at the malleoli.. The hip joints are unremarkable. SOFT TISSUE: Normal. IMPRESSION: Bilateral total knee prostheses. Mild leg length discrepancy. DATA REPOSITORY: RADIATION DOSE DELIVERED:
== END 2023-07-25 12:09 | disposition home or self-care (01) ==
LOC: DIORS 12:08
PROVIDERS: PCP Nurse Practitioner Family; Visit Provider Student in an Organized Health Care Education/Training Program
DX: Z96.653 Presence of artificial knee joint, bilateral; Z47.1 Aftercare following joint replacement surgery
CPT/HCPCS: 73560; 77073

== ENCOUNTER → 2023-08-05 12:54 | Outpatient (BNVA) | payer MEDICARE, SELFPAY | PROVIDERS: PCP Nurse Practitioner Family; Referring Provider Nurse Practitioner Family; Visit Provider Student in an Organized Health Care Education/Training Program | DX: Z47.1 Aftercare following joint replacement surgery (principal); T81.89XA Other complications of procedures, not elsewhere classified, initial encounter; Z96.651 Presence of right artificial knee joint ==

== ENCOUNTER → 2023-08-08 10:30 | Outpatient (BNVA) | payer MEDICARE, SELFPAY | PROVIDERS: PCP Nurse Practitioner Family; Referring Provider Nurse Practitioner Family; Visit Provider Student in an Organized Health Care Education/Training Program | DX: Z47.1 Aftercare following joint replacement surgery (principal); Z96.651 Presence of right artificial knee joint; T81.89XA Other complications of procedures, not elsewhere classified, initial encounter ==

== ENCOUNTER 2023-08-09 11:08 | Day surgery (SDC) | payer MEDICARE, SELFPAY ==
[2023-08-09 11:27] VITALS: BP 162/89; PULSE 101; RESP 20; TEMP 36.5; O2SAT 98
[2023-08-09] MEDS: Lactated Ringers 1,000 ML 80 ML IV (11:45)
--- NOTE | 2023-08-09 11:49 | ANES.PREOP_ITS ---
General Info Date of Service Date Performed: 08/09/23 Height: 5 ft 5.5 in Weight: 86.7 kg Body Mass Index (BMI): 31.3 Surgical Procedure: Operation Date: 08/09/23 12:40 Proposed Procedure Side Surgeon p Knee Wound Closure/Debridement Right Beck Gutiérrez MD Meds Allergies and Home Medications Allergies Allergy/AdvReac Type Severity Reaction Status Date / Time oxycodone Allergy Intermediate Unverified 08/09/23 11:24 codeine AdvReac Severe Nausea Unverified 08/09/23 11:24 Home Medication Medication Instructions Recorded simvastatin 20 mg tablet 20 mg PO HS 09/28/13 Tumeric 2,000 mg PO DAILY 10/12/20 cholecalciferol (vitamin D3) 50 50 mcg PO DAILY 10/12/20 mcg (2,000 unit) tablet (Vitamin D3) famotidine 20 mg tablet 20 mg PO HS 10/12/20 lisinopril 10 mg tablet 10 mg PO HS 10/12/20 loratadine 10 mg tablet (Claritin) 10 mg PO DAILY 10/12/20 cyanocobalamin (vitamin B-12) 1,000 mcg PO DAILY 10/03/22 1,000 mcg capsule turmeric root extract 500 mg 1,000 mg PO DAILY 10/03/22 capsule vitamins A,C,J-xozd-xfpkuq 4,296 1 cap PO DAILY 06/28/23 mcg-226 mg-90 mg capsule (PreserVision AREDS) acetaminophen 500 mg tablet 1,000 mg (2 x 500 mg) PO TID #90 07/10/23 tabs aspirin 81 mg tablet,delayed 81 mg PO BID #60 tabs 07/10/23 release betamethasone dipropionate 0.05 % 1 applic topical DAILY PRN 07/10/23 topical cream celecoxib 200 mg capsule 200 mg PO BID #60 caps 07/10/23 cephalexin 500 mg tablet 500 mg PO TID #21 tabs 08/05/23 Current Visit Medications: Current Medications Generic Name Dose Route Start Last Admin Trade Name Freq PRN Reason Stop Dose Admin Ringer's Solution 1,000 mls @ 80 mls/hr 08/09/23 06:00 IV 09/07/23 23:59 INFUSION FADI Cefazolin Sodium/Dextrose 2 gm in 50 mls @ 100 mls/hr 08/09/23 06:00 Ancef Duplex IVPB 09/07/23 23:59 PREOP FADI IV Miscellaneous Supplies 1 each 08/09/23 06:00 Iv Access IV 09/07/23 23:59 DIRECTED FADI Sodium Chloride 0 ml 08/09/23 06:00 Normal Saline Flush 10 Ml Syr IV 09/07/23 23:59 PRN PRN Sodium Chloride 0 ml 08/09/23 06:00 Normal Saline 10 Ml Vial IJ 09/07/23 23:59 DIRECTED PRN Sterile Water 0 ml 08/09/23 06:00 Water,Injection,Sterile 10 Ml Vial IJ 09/07/23 23:59 DIRECTED PRN PFSH Active Problems Active Problems: Problem Status Onset Code Postoperative wound dehiscence T81.31XA Draining postoperative wound T81.89XA Syncope and collapse R55 History of total right knee replacement 07/10/23 Z96.651 Skin lesion L98.9 History of arthroscopic knee surgery Z98.890 Screening for colorectal cancer Z12.11, Z12.12 Hallux rigidus of right foot M20.21 Hallux limitus of left foot M20.5X2 Hammertoe of second toe of left foot M20.42 Osteoarthritis of knee M17.10 Medical History Medical History Ear pain, right Thyroid nodule Eczema Obesity Pain in right toe(s) Low back pain Dysarthria Dyspepsia High cholesterol Hypertension Arthritis Carotid atherosclerosis Pt. f/u with PCP and follows up with [facility] Medical History Comments:: PONV after one of her toe surgeries, no further issues since Surgical History Surgical History History of total left knee replacement (07/11/21) History of foot surgery left great toe repair x2 History of shoulder surgery removal neurofibro right shoulder Colonoscopy - IV Sedation (04/20/16) Tobacco Smoking/Tobacco Use Status: Former Tobacco Use Alcohol Alcohol Intake: current Alcohol intake frequency: a few times a week Alcohol type: wine Substance Use Substance use: Never Substance use type: does not use Vital Signs and Lab Results Vital Signs Most Recent Vital Signs in EMR: Most Recent Vital Signs Temp Pulse Resp BP Pulse Ox 36.5 C 101 H 20 162/89 H 98 08/09/23 11:27 08/09/23 11:27 08/09/23 11:27 08/09/23 11:27 08/09/23 11:27 Lab Results Blood Type / Crossmatch: No Data to Display Complete Blood Count: White Blood Count 7.02 10^3/uL (4.4-10.8) 07/12/23 06:16 Red Blood Count 3.46 10^6/uL (3.93-5.22) L 07/12/23 06:16 Hemoglobin 9.5 g/dL (11.2-15.7) L 07/12/23 06:16 Hematocrit 29.5 % (36.0-46.0) L 07/12/23 06:16 Platelet Count 255 10^3/uL (130-400) 07/12/23 06:16 Complete Metabolic Panel: Sodium 139 mmol/L (136-145) 07/12/23 06:16 Potassium 4.1 mmol/L (3.5-5.1) 07/12/23 06:16 Chloride 104 mmol/L (98-107) 07/12/23 06:16 Carbon Dioxide 25.6 mmol/L (21.0-32.0) 07/12/23 06:16 BUN 15 mg/dL (7-18) 07/12/23 06:16 Creatinine 0.7 mg/dL (0.55-1.02) 07/12/23 06:16 Est GFR (CKD-EPI 2020) 92.98 (mL/min/1.73m2) 07/12/23 06:16 Magnesium 2.0 mg/dL (1.8-2.4) 07/11/23 10:35 Calcium 8.9 mg/dL (8.5-10.1) 07/12/23 06:16 Albumin 3.4 g/dL (3.4-5.0) 07/11/23 10:35 Glucose 100 mg/dL (74-106) 07/12/23 06:16 Liver Function Panel: Alanine Aminotransferase (ALT/SGPT) 17 U/L (14-59) 07/11/23 10: 35 Aspartate Amino Transf (AST/SGOT) 13 U/L (15-37) L 07/11/23 10: 35 Coagulation Panel: No Data to Display Cardiac Panel: Troponin I < 50 ng/L (<or=60) 07/11/23 Arterial Blood Gas: No Data to Display Venous Blood Gas: No Data to Display Pancreas Panel: No Data to Display Thyroid Panel: No Data to Display Infectious Disease: Coronavirus (COVID-19)(PCR) Negative (Negative) 07/11/23 12:31 Coronavirus 2019 Source Nasopharynx 07/11/23 12:31 Influenza Virus Type A (PCR) Negative (Negative) 07/11/23 12:3 1 Influenza Virus Type B (PCR) Negative (Negative) 07/11/23 12:3 1 Respiratory Syncytial Virus (PCR) Negative (Negative) 07/11/23 12:31 Blood Cultures: No Data to Display Toxicology Panel: No Data to Display Imaging and Studies Imaging and Studies Study information below may be from another EMR and interpreted by another provider. Please see original notes in EMR for more complete details. Carotid Artery Summary:: Date of Exam: 08/19/20ex: F Admission Date: 08/19/20 : 1955 Age: 65 Exam(s) a US:US carotid FINDINGS: RIGHT CAROTID ARTERY: Plaque: Small focus of noncalcified plaque in the right common carotid bulb. Minimal plaque elsewhere. Velocity elevation: None. LEFT CAROTID ARTERY: Plaque: Minimal calcific plaque in the common carotid bulb.. Velocity elevation: None. VERTEBRAL ARTERIES: Antegrade flow. IMPRESSION: Mild bilateral plaque in the common carotid bulbs. No evidence for hemodynamically significant carotid stenosis. Criteria for Carotid Stenosis: Normal: ICA PSV <125 cm/s no plaque or intimal thickening is visible. <50% stenosis: ICA PSV <125 cm/s and plaque or intimal thickening is visible. 50-69% stenosis: ICA PSV is 125-250 cm/s and plaque is visible. >70% stenosis to near occlusion: ICA PSV >250 cm/s with visible plaque and luminal narrowing. Anesthesia Assessment and Plan Anesthesia History Personal History: PONV Family History: No Family History of Anesthesia Complications Exercise Tolerance Exercise Tolerance: Metabolic Equivalents>4 Pertinent Negatives Pertinent Negatives: No Symptoms of GERD, No Major Cardiovascular Symptoms or Complaints, No Major Pulmonary Symptoms or Complaints and No History of CVA/TIA Cardiac & Pulmonary Exam Cardiac Exam: Normal S1/S2 Heart Sounds Pulmonary Exam: Clear Bilateral Breath Sounds Implantable Cardiac Device Does patient have a Pacemaker or an ICD?: No Airway Exam Known Difficult Airway: No Mallampati Class: 2 Mouth Opening: Normal (> 3cm) Thyromental Distance: Greater than 3 cm Neck Range of Motion: Full ROM Neck Circumference: Normal Teeth Condition: Normal Dentition ASA Classification ASA Score: ASA 2 Emergency Case?: No NPO Status NPO Status: NPO Clears >2 hours, Solids >8 hours Anesthesia Plan Resuscitation Status: Full Code Anesthesia Technique: General Anesthesia Airway Planned: Natural Airway Monitors Used: Standard Monitors
[2023-08-09 11:53] VITALS: BMI 31.3
[2023-08-09] MEDS: ceFAZolin 2 GM/50 ML BAG IVPB (12:25)
[2023-08-09 13:29] VITALS: BP 99/56; PULSE 68; RESP 20; TEMP 36.3; O2SAT 98
[2023-08-09 14:00] VITALS: BP 138/55; PULSE 64; RESP 20; TEMP 36.3; O2SAT 100
--- NOTE | 2023-08-09 14:01 | W.ANESPOSTOP ---
Postoperative Evaluation Date, Time and Location Date Performed: 08/09/23 Time Performed: 14:01 Patient Location: Day Surgery Unit Vital Signs Most Recent Imported Vital Signs: Most Recent Vital Signs Temp Pulse Resp BP Pulse Ox 36.3 C L 68 20 99/56 L 98 08/09/23 13:29 08/09/23 13:29 08/09/23 13:29 08/09/23 13:29 08/09/23 13:29 Pain Score Most Recent Pain Score: Most Recent Pain Score Pain Level 0 08/09/23 13:29 Assessment Mental Status: Awake (Alert & Oriented to Patient Baseline) Airway and Respiratory Function: Patent airway with normal (patient baseline) respiratory exam Cardiovascular Function: Hemodynamically Stable Hydration Status: Adequately Hydrated Nausea & Vomiting: No Nausea or Vomiting Pain: Pt. Denies Any Pain Peripheral Nerve Block: Patient did not receive a nerve block
--- NOTE | 2023-08-09 14:08 | W.PM.DS.N ---
Date of service: 08/09/23 Time of Service: 14:03 DS: Diagnosis Discharge Diagnosis (1) Postoperative wound dehiscence: Status: Acute Discharge Plan Disposition Patient Disposition: Home Condition: Good Discharge Details Reason For Visit: Right knee postoperative wound Attending Provider: Beck Gutiérrez Primary Care Provider: Rena Hinds Home Meds and New Rx's Prescriptions: New acetaminophen 500 mg tablet 1,000 mg PO Q8H PRN Qty: 90 0RF Rx Instructions: Take two tablets up to every 8 hours as needed for pain celecoxib [Celebrex] 200 mg capsule 200 mg PO BID PRNQty: 60 0RF Rx Instructions: Take one tablet twice daily for pain and inflammation oxycodone 5 mg tablet 2.5 - 5 mg PO Q4H PRNQty: 12 0RF Rx Instructions: Take one tablet up to every 4 hours as needed for severe postoperative pain Continued cephalexin 500 mg tablet 500 mg PO TID Qty: 21 0RF PreserVision AREDS 4,296 mcg-226 mg-90 mg capsule 1 cap PO DAILY turmeric root extract 500 mg capsule 1,000 mg PO DAILY cyanocobalamin (vitamin B-12) 1,000 mcg capsule 1,000 mcg PO DAILY simvastatin 20 MG tablet 20 mg PO HS betamethasone dipropionate 0.05 % cream 1 applic TOPICAL DAILY PRN Patient Comments: APPLY SPARINGLY ONCE TO TWICE DAILY NEEDED TO AFFECTED AREAS acetaminophen 500 mg tablet 1,000 mg PO TID Qty: 90 3RF Patient Comments: ran out of regular, taking tylenol arthritis celecoxib 200 mg capsule 200 mg PO BID Qty: 60 0RF aspirin 81 mg tablet,delayed release (DR/EC) 81 mg PO BID Qty: 60 0RF loratadine [Claritin] 10 mg Tablet 10 mg PO DAILY cholecalciferol (vitamin D3) [Vitamin D3] 50 mcg (2,000 unit) Tablet 50 mcg PO DAILY Tumeric 1,000 mg tablet 2,000 mg PO DAILY famotidine 20 mg tablet 20 mg PO HS Patient Comments: TK 1 T PO D lisinopril 10 mg tablet 10 mg PO HS Patient Comments: TAKE 1 TABLET BY MOUTH EVERY DAY Discharge Instructions Additional Instructions: Wound Excision for Total Knee Discharge Instructions Activity: The most important activity is to walk and to work on gentle motion (both flexion and extension). Do not try to push any of the range of motion. Do not do any active squats or aggressive knee flexion exercises. Wear the knee immobilizer when sleeping to avoid persistent knee flexion. Dressing: Keep the initial MICHAEL wounddressing in place until your follow-up appointment. You may pause the vacuum device with the orange button and disconnect it to take a shower, making sure to cover the dressing with ClingWrap (Saran Wrap). Avoid getting the dressing soaked. Medications: - You should take Tylenol and anti-inflammatory Celebrex as your primary pain control medications. If the Celebrex is too expensive or not covered, please call the office for another alternative (Advil/Ibuprofen or Naproxen/Aleve) - You have been prescribed a stronger pain medication Oxycodone for breakthrough pain, take as needed as prescribed. Follow-up: Saturday for wound check. Bring your extra dressings. If you have any acute concerns or questions, please do not hesitate to contact the office at [phone]. You may contact Dr. Gutiérrez with any questions after hours through the hospital at [phone] or on his cell phone at [phone]. Stand Alone Forms: Anesthesia Discharge Inst., Jatin Lugo ([facility]) Referrals: Beck Gutiérrez MD [ [facility] STAFF PHYSICIAN] - 08/19/23 1:30 pm Equipment/Supplies: Walker Activity:: Elevate Remove Dressings/Wound Care:: Do Not Remove Shower/Bathe:: Cover Diet:: As Tolerated Discharge Orders Discharge Orders: Discharge Order (Routine); Ordered 08/09/23 Ordered By: Germania Castillo DS: Summary Time Spent with Patient providing and/or coordinating discharge services: Less than 30 minutes Status at Discharge Functional status at discharge: independent ambulation Overall status at discharge: patient is progressing back to baseline Mental Status: mental status grossly normal Speech and Movement: speech and movement normal Mood: congruent mood Affect: normal affect Exam Psych Mental Status: mental status grossly normal Speech and Movement: speech and movement normal Mood: congruent mood Affect: normal affect DS: Data Vitals/I&O Vitals and I&O: Vital Signs Temperature 97.7 F 08/09/23 11:27 Pulse 101 H 08/09/23 11:27 Pulse Rhythm Regular 08/09/23 11:27 Respiratory Rate 20 08/09/23 11:27 Respiratory Depth Deep 08/09/23 11:27 Blood Pressure 162/89 H 08/09/23 11:27 Pulse Oximetry 98 08/09/23 11:27 Oxygen Delivery Method Room Air 08/09/23 11:27 Oxygen Flow Rate 0 08/09/23 11:27 Pain Level 1 08/09/23 11:27 Intake & Output 08/08/23 08/09/23 08/09/23 23:59 11:59 23:59 Weight 190 lb 0.016 oz 191 lb 2.252 oz PFSH All Active Problems Postoperative wound dehiscence (Acute) Draining postoperative wound (Acute) Syncope and collapse (Acute) History of total right knee replacement (Chronic 07/10/23) Skin lesion (Acute) per referral behind Left ear History of arthroscopic knee surgery (Acute) bilat knee arthoscopys, removal loose bodies left knee. Screening for colorectal cancer (Acute) Hallux rigidus of right foot (Acute) Hallux limitus of left foot (Acute) Hammertoe of second toe of left foot (Acute) Osteoarthritis of knee (Chronic) Right DEPO MEDROL 11/08/22 Medical History Ear pain, right Thyroid nodule Eczema Obesity Pain in right toe(s) Low back pain Dysarthria Dyspepsia High cholesterol Hypertension Arthritis Carotid atherosclerosis Pt. f/u with PCP and follows up with [facility] Surgical History History of total left knee replacement (07/11/21) History of foot surgery left great toe repair x2 History of shoulder surgery removal neurofibro right shoulder Colonoscopy - IV Sedation (04/20/16) Social History Smoking/Tobacco Use Status: Former Tobacco Use Quit Date: 09/09/79 Smoking risk assessment performed?: Yes Alcohol Intake: current Alcohol Intake frequency: a few times a week Alcohol type: wine Drug use: Never Substance use type: does not use Housing: house Current gender identity: female Do you feel safe at home: Yes Do you feel safe in your relationship?: Yes
--- NOTE | 2023-08-09 16:10 | W.PM.OP ---
Date of service: 08/09/23 Time of Service: 12:30 Operative Note Operative Note DATE OF PROCEDURE: 08/09/23 PRE-OP DIAGNOSIS: Left Knee Surgical Wound Dehisence POST-OP DIAGNOSIS: same PROCEDURE: Irrigation and debridement of surgical wound dehiscence with secondary closure Application of vacuum-assisted dressing SURGEON: Beck Gutiérrez POCKET MACHINE OPERATOR: Chloe Jerome ANESTHESIA TYPE: General:No Airway Refer to Anesthesia Record ESTIMATED BLOOD LOSS: 10 PATHOLOGY: none sent TOURNIQUET TIME: 0 COMPLICATIONS: None Patient was transported to: PACU Patient's condition: stable Indications: Bev is a 68-year-old female who is status post left knee replacement. She did have an episode of significant bleeding about the left knee. She was seen in the 2-week appointment and was doing well. However, she called the office this past week with concerns about the left knee wound which showed an area of skin necrosis and dehiscence centrally. This was initially treated with some wet-to-dry dressings but given its size I recommended proceeding with irrigation and debridement and attempted secondary closure. I reviewed this with her. I discussed the risk to include bleeding, infection, pain, stiffness, need for repeat procedures. Despite these risks, she elected to proceed. Findings: There is an area of central dehiscence about the wound measuring about 6 cm in length. There is also a few areas of hyperactive skin from likely Vicryl sutures underneath. The skin edges were excised sharply. The wound was thoroughly debrided and irrigated and secondarily closed. A vacuum-assisted dressing was applied. Procedure Description: Bev was greeted in the preoperative holding area where the correct side was identified and marked. The consent was reviewed with the patient and signed. The history and physical was updated. All questions were answered. Preoperative mediacations were administered: Acetaminophen 1000mg, Celebrex 400mg, and Gabapentin 300mg. Bev was taken back to the operating room. A general, uninstrumented airway, anesthestic was administered. The patient was placed into the supine position on the operating room table. Posts were placed for positioning during the procedure. All bony prominences were well padded. Prophylactic antibiotics in the form of Cefazolin were administered. The left leg was then prepped with Chloraprep except over the wound which was prepped with Betadine. This was then draped in a standard fashion with impervious stockinette. A second prep with Betadine was performed prior to incision. A timeout to confirm correct identity, side and site, procedure, allergies, anesthesia, and medical concerns was performed. The central area of dehiscence as well as the areas of poor healing skin were excised sharply back to bleeding healthy skin edges. The deeper fascia was debrided and it showed no signs of rupture of the arthrotomy. The subcutaneous tissues were sharply debrided any necrotic appearing or unhealthy tissue. These flaps were raised medially and laterally for skin mobilization. Once again, there is no gross purulence. There is no sign of infection. This was thoroughly irrigated with 3 L of normal saline. Once again a second look was performed during irrigation to remove any necrotic or unhealthy appearing tissue. There is bleeding tissue throughout. A curette was also used to roughen the surface areas of the knee. I then irrigated the knee with Irrisept chlorhexidine solution. This allowed to sit for 3 minutes. It was then irrigated out with saline. Deep tissues were then reapproximated with 0 PDS. This was easily reapproximated in extension. However, there was some tension on the skin in flexion. The first layer of closure was performed in extension and the leg was then brought up into 45 degrees of flexion where the skin was initially closed with #2-0 nylon. The knee was brought up in the 90 degrees of flexion and the skin edges stayed well approximated. Therefore, I continued with closure of the wound using #2-0 nylon in a horizontal mattress fashion. A vacuum-assisted dressing, jhonny, was then applied due to the sensitive nature of the skin in this area and for healing and wound management. A knee immobilizer was also applied. Bev was transferred to the hospital stretcher without difficulty an suffering no apparent complication and taken back to the PACU. Bev has a gaurded prognosis. Aspirin 81mg BID will be used for DVT prophylaxis.
== END 2023-08-09 15:15 | disposition home or self-care (01) ==
PROVIDERS: PCP Nurse Practitioner Family; Visit Provider Student in an Organized Health Care Education/Training Program
PROC: (CPT 13160; principal; 2023-08-09 12:30)
DX: T81.31XA Disruption of external operation (surgical) wound, not elsewhere classified, initial encounter (principal); T81.89XA Other complications of procedures, not elsewhere classified, initial encounter; Z96.651 Presence of right artificial knee joint; E78.00 Pure hypercholesterolemia, unspecified; I10 Essential (primary) hypertension
CPT/HCPCS: 13160; J0690; J1100; J1885; J2001; J2405; J2704

== ENCOUNTER → 2023-08-16 11:40 | Outpatient (BNVA) | payer MEDICARE, SELFPAY | PROVIDERS: PCP Nurse Practitioner Family; Referring Provider Nurse Practitioner Family | DX: Z47.1 Aftercare following joint replacement surgery (principal); T81.31XA Disruption of external operation (surgical) wound, not elsewhere classified, initial encounter; Z96.651 Presence of right artificial knee joint ==

== ENCOUNTER → 2023-08-19 13:18 | Outpatient (BNVA) | payer MEDICARE, SELFPAY | PROVIDERS: PCP Nurse Practitioner Family; Referring Provider Nurse Practitioner Family; Visit Provider Student in an Organized Health Care Education/Training Program | DX: Z47.1 Aftercare following joint replacement surgery (principal); T81.31XD Disruption of external operation (surgical) wound, not elsewhere classified, subsequent encounter; Z96.651 Presence of right artificial knee joint ==

== ENCOUNTER → 2023-08-29 08:28 | Outpatient (BNVA) | payer MEDICARE, SELFPAY | PROVIDERS: PCP Nurse Practitioner Family | DX: Z47.1 Aftercare following joint replacement surgery (principal); Z96.651 Presence of right artificial knee joint; T81.31XD Disruption of external operation (surgical) wound, not elsewhere classified, subsequent encounter ==

== ENCOUNTER → 2023-09-26 09:16 | Outpatient (BNVA) | payer MEDICARE, SELFPAY | PROVIDERS: PCP Nurse Practitioner Family; Referring Provider Nurse Practitioner Family; Visit Provider Student in an Organized Health Care Education/Training Program | DX: Z47.1 Aftercare following joint replacement surgery (principal); Z96.651 Presence of right artificial knee joint; T81.31XA Disruption of external operation (surgical) wound, not elsewhere classified, initial encounter ==

== ENCOUNTER → 2024-03-05 14:57 | Outpatient (BNVA) | payer MEDICARE, SELFPAY | PROVIDERS: PCP Nurse Practitioner Family; Referring Provider Nurse Practitioner Family; Visit Provider Student in an Organized Health Care Education/Training Program | DX: Z47.1 Aftercare following joint replacement surgery (principal); T81.89XA Other complications of procedures, not elsewhere classified, initial encounter; Z96.651 Presence of right artificial knee joint | CPT/HCPCS: 99213 ==

== ENCOUNTER 2024-04-01 08:49 | Outpatient (REF) | payer MEDICARE, SELFPAY ==
[2024-04-01 15:37] LABS: Calculated LDL 101 mg/dL (<100); Cholesterol 208 mg/dL (<200); HDL Cholesterol 96 mg/dL (40-60); Magnesium 2.3 mg/dL (1.8-2.4); Triglyceride 55 mg/dL (<150)
[2024-04-01 15:38] LABS: Vitamin B12 > 2000 pg/mL (193-986)
[2024-04-01 15:50] LABS: Hemoglobin A1C 5.9 % (<5.7)
[2024-04-02 12:37] LABS: FREE T4 1.11 ng/dL (0.76-1.46); TSH 1.94 uIU/Ml (0.36-3.74)
== END 2024-04-01 08:50 | disposition home or self-care (01) ==
LOC: NCHCN 08:49
PROVIDERS: PCP Nurse Practitioner Family; Visit Provider Nurse Practitioner Family
DX: E04.1 Nontoxic single thyroid nodule (principal); I10 Essential (primary) hypertension; R73.03 Prediabetes; K30 Functional dyspepsia; Z79.899 Other long term (current) drug therapy
CPT/HCPCS: 80061; 82607; 83036; 83735; 84439; 84443; 84481

== ENCOUNTER 2024-04-08 08:14 | Day surgery (SDC) | payer MEDICARE, SELFPAY ==
--- NOTE | 2024-04-08 07:22 | W.PM.DSUDISC ---
Date of service: 04/08/24 Time of Service: 07:23 Discharge Plan Disposition Patient Disposition: Home Condition: Good Discharge Details Reason For Visit: Excision Granuloma R Knee Attending Provider: Beck Gutiérrez Primary Care Provider: Rena Hinds Home Meds and New Rx's Prescriptions: New acetaminophen 500 mg tablet 1,000 mg PO TID Qty: 90 0RF ibuprofen 600 mg tablet 600 mg PO TID PRN (Reason: pain) Qty: 90 0RF Continued PreserVision AREDS 4,296 mcg-226 mg-90 mg capsule 1 cap PO DAILY cyanocobalamin (vitamin B-12) 1,000 mcg capsule 1,000 mcg PO DAILY simvastatin 20 MG tablet 20 mg PO HS betamethasone dipropionate 0.05 % cream 1 applic TOPICAL DAILY PRN Patient Comments: APPLY SPARINGLY ONCE TO TWICE DAILY NEEDED TO AFFECTED AREAS loratadine [Claritin] 10 mg Tablet 10 mg PO DAILY cholecalciferol (vitamin D3) [Vitamin D3] 50 mcg (2,000 unit) Tablet 50 mcg PO DAILY Tumeric 1,000 mg tablet 2,000 mg PO DAILY famotidine 20 mg tablet 20 mg PO HS Patient Comments: TK 1 T PO D lisinopril 10 mg tablet 10 mg PO HS Patient Comments: TAKE 1 TABLET BY MOUTH EVERY DAY Discharge Instructions Additional Instructions: Knee Manipulation Discharge Instructions Activity: You may bear weight as tolerated and return to normal activities as tolerated. You should apply ice to help with swelling and elevate when possible (especially in the first few days). Dressings: The knee dressing may come down after one week. You may shower after three days while covering the dressing with saran wrap. You may keep the wound covered with a bandaid after one week if desired. Medications: - Recommend to take up to 1000mg of Acetaminophen (Tylenol) and 600mg of Ibuprofen (Advil) every 8 hours as needed. These larger strength tablets were called in but you also may use [id number]. Follow-up: 7-10 days Referrals: Beck Gutiérrez MD [ [facility] STAFF PHYSICIAN] - Activity:: Activity as Tolerated Shower/Bathe:: 72 hours Diet:: As Tolerated Discharge Orders Discharge Orders: Discharge Order (Routine); Ordered 04/08/24 Ordered By: Modesto Garcia DS: Diagnosis Discharge Diagnosis (1) Suture granuloma: Status: Acute
[2024-04-08 08:20] VITALS: BP 174/81; PULSE 91; RESP 16; TEMP 36.6; O2SAT 98
[2024-04-08] MEDS: Lidocaine 1% Multi-Dose W/EPI 1/100,000 50 ML VIAL (09:25)
[2024-04-08] MEDS: Sodium Bicarbonate 50 MEQ/50 ML VIAL (09:25)
[2024-04-08 09:33] VITALS: BP 142/72; PULSE 71; RESP 16; TEMP 36.3; O2SAT 98
--- NOTE | 2024-04-08 09:36 | W.PM.OP ---
Date of service: 04/08/24 Time of Service: 09:20 Operative Note Operative Note DATE OF PROCEDURE: 04/08/24 PRE-OP DIAGNOSIS: Granuloma of surgical wound, right knee POST-OP DIAGNOSIS: same (With retained suture) PROCEDURE: Full-thickness skin excision including granuloma, 4 cm, right knee SURGEON: Beck Gutiérrez ANESTHESIA TYPE: Local By Surgeon Refer to Anesthesia Record ESTIMATED BLOOD LOSS: 0 PATHOLOGY: none sent TOURNIQUET TIME: 0 COMPLICATIONS: None Patient was transported to: same day Patient's condition: stable Indications: Bev is a 69-year-old female who underwent a right knee replacement. This is complicated by bleeding episode following the surgery which required intervention. She is otherwise responded well to the surgery and done well. However, she has had the presents now with an area of prominence about the incision. This has had some redness and irritation to it was painful. This was felt to be a granuloma. It is failed treatments within the office and therefore I recommended proceeding with excision of the granuloma in a full-thickness fashion in the operating room. I reviewed the risk to include bleeding, infection, pain, stiffness, recurrence. Despite these risk, she elects to proceed. Findings: There were 2 areas of nodularity. 1 larger 1 and 1 smaller 1. A full-thickness ellipse of epidermis and dermis was taken out encompassing these 2 nodules. Interestingly, there was suture material with good structural integrity which was found in this deep dermal layer. The ellipse of dermis was removed with the granulomas and excess suture material which was found was debrided with a rongeur. There is no other concerning signs within the deep layers. The skin was reapproximated with Monocryl without difficulty. Procedure Description: Bev was greeted in the preoperative holding area. Her identity was confirmed and the correct site was identified and marked. The consent was reviewed the patient and signed. She was then taken back to the procedure room where she was placed in the supine position. The right leg was prepped ChloraPrep and draped with a box drape. A timeout is performed for safe surgery. The primary granuloma and a secondary nodules identified on the skin. An ellipse was drawn out encompassing these 2 nodules, approximately 4 to 5 cm in length. This area was then anesthetized with 1% lidocaine with epinephrine, buffered with sodium bicarbonate. Once this anesthetic is set up, confirmed with testing, an incision was made as previously drawn out on the skin. This was taken down sharply through the epidermis and dermis into the subcutaneous tissue. Interestingly, and incising this area there was still suture material which is present. This appeared to be a monofilament suture but unfortunately did not show any signs of degradation. The suture around the area of the ellipse was transected and the tissue wedge was removed in whole. This encompassed the granuloma of concern as well as a second nodule just distal to it. The underlying tissue appeared normal without any signs of irritation or inflammation or infection. The extra suture material was removed without difficulty. There is no other remnant suture material present. There is no active bleeding. The wound was thoroughly irrigated. The wound was then closed with buried 2-0 Monocryl as well as a running 4-0 Monocryl in a subcuticular fashion. This was reinforced with Steri-Strips and dressed with a Mepilex silver dressing. The tissue was not sent to pathology since it was reactive granuloma from suture. At the end the case all counts were correct. Bev tolerated the procedure well. She was transferred back to the day surgery unit in stable condition.
== END 2024-04-08 09:48 | disposition home or self-care (01) ==
LOC: SUR 08:14
PROVIDERS: PCP Nurse Practitioner Family; Visit Provider Student in an Organized Health Care Education/Training Program
PROC: (CPT 27340; principal; 2024-04-08 09:45)
DX: T81.69XA Other acute reaction to foreign substance accidentally left during a procedure, initial encounter (principal); Z96.651 Presence of right artificial knee joint
CPT/HCPCS: 11406; 10120; J2004

== ENCOUNTER → 2024-04-20 15:24 | Outpatient (BNVA) | payer MEDICARE, SELFPAY | PROVIDERS: PCP Nurse Practitioner Family; Referring Provider Nurse Practitioner Family | DX: Z47.1 Aftercare following joint replacement surgery (principal); Z96.651 Presence of right artificial knee joint; T81.89XA Other complications of procedures, not elsewhere classified, initial encounter ==

== ENCOUNTER 2024-04-30 08:50 | Outpatient (RCR) | payer MEDICARE, SELFPAY ==
--- NOTE | 2024-04-30 09:00 | HOLTER_ITS ---
APPROVED REPORT Conclusion This is a 24-hour Holter monitor Rhythm throughout was sinus with an average heart rate of 75. Minimum was 52, maximum 146 There were very rare isolated ventricular ectopic beats There were occasional to frequent atrial premature beats There was no atrial fibrillation, no high-grade AV block, no pauses greater than 3 seconds Symptoms were reported which may have correlated with PACs
== END 2024-05-09 23:59 | disposition home or self-care (01) ==
LOC: CARDOPNVT 08:50
PROVIDERS: PCP Nurse Practitioner Family; Visit Provider Internal Medicine Cardiovascular Disease
DX: R00.2 Palpitations (principal)
CPT/HCPCS: 93227; 93225; 93226

== ENCOUNTER 2024-05-07 02:02 | Outpatient (CLI) | payer MEDICARE, SELFPAY ==
--- NOTE | 2024-05-07 | DI.DEXA_ITS ---
Exam(s) XR DEXA BONE DENSITY W/WO ALLI EXAM: XR DEXA BONE DENSITY W/WO ALLI CLINICAL HISTORY: POSTMENOPAUSAL STATE, Z78.0 TECHNIQUE: HoloOffe[employer] Horizon C densitometer analysis of left hip, lumbar spine and left forearm. Lat eral survey image of the thoracic and lumbar spine. COMPARISON: DX XR DEXA BONE DENSITY W/WO ALLI from 02/19/2019 FINDINGS: Lateral view of the thoracic and lumbar spine shows no evidence of compression fractures. Bone mineral density measurements of the lumbar spine correspond to a total T-score of 0.9. This re presents a 3.3 percent increase from 2019. Bone mineral density measurements of the left hip correspond to a total T-score of -0.2. This is no t significantly changed from prior.. The femoral neck T-score is -1.3, in the osteopenic range.. Theleft forearm bone mineral density measurements correspond to a T-score of the distal 3rd of -1.8, in the osteopenic range. This represents a 12.2 percent decrease from 2019.. IMPRESSION: Normal bone density of the spine. Osteopenia of the hip and forearm.
--- NOTE | 2024-05-07 14:20 | DI.US_ITS ---
APPROVED REPORT EXAM: Comprehensive 2D, Doppler, and color-flow Echocardiogram Patient Location: Out-Patient Bar Assistant: Aracelis Mcbride RDCS (AE) Indications: Heart murmur Other Information Study Quality: Good Conclusion Normal left ventricular wall thickness and chamber size. Ejection fraction is 60%. Wall motion is n ormal Normal right ventricular size and function Both atria are normal in size Aortic valve is minimally sclerotic and trileaflet with trace regurgitation There is no additional valvular disease Estimated right ventricular systolic pressure is 34 mmHg Wall motion Left Ventricle The left ventricle is normal size. The left ventricular systolic function is normal. The left ventric ular ejection fraction is within the normal range. There is normal left ventricular wall thickness. T here is normal LV segmental wall motion. There is no ventricular septal defect visualized. LVEF is 60 %. Right Ventricle The right ventricle is normal size. The right ventricular systolic function is normal. Atria The left atrium size is normal. The right atrium size is normal. Aortic Valve Aortic valve is minimally sclerotic Aortic valve is trileaflet. There is no aortic valvular stenosis. Trace aortic regurgitation is present. Mitral Valve The mitral valve is normal in structure. No evidence of mitral valve stenosis. Trace mitral regurgita tion. Tricuspid Valve The tricuspid valve is normal in structure. There is no tricuspid valve stenosis. Mild tricuspid regu rgitation. The RVSP is 33.6_ mmHg. Pulmonic Valve The pulmonary valve is normal in structure. There is no pulmonic valvular stenosis. Trace pulmonic re gurgitation. Great Vessels The aortic root is normal in size. The ascending aorta is normal in size. Aortic arch is normal in ca liber. IVC is normal in size and collapses >50% with inspiration. Pericardium There is no pericardial effusion. 2D Dimensions IVSD d PLAX 0.82 cm F: 0.6-1.0 Ao Root d 2.76 cm F: 2.7 - 3.3 LVPW d PLAX 0.80 cm F: 0.6 - 1.0 Ao Asc Diam d 3.11 cm F: 2.3 - 3.1 LVID d PLAX 4.80 cm F: 3.8 - 5.2 LVDs 3.23 cm F: 2.2 - 3.5 LV EF Teichholz 61.1 % FS 32.72 % LV EDV (Teich) 107.4 mL LV ESV (Teich) 41.8 mL M-Mode TAPSE 3.52 cm (M/F) >1.7 Auto EF LV EDV A4C 126.4 mL LV EDV A2C 107.5 mL LV EDV BP 119.3 mL LV ESV A4C 52.3 mL LV ESV A2C 42.4 mL LV ESV BP 46.9 mL LVEF(%) A4C 58.6 % LVEF(%) A2C 60.6 % LVEF(%) BP 60.7 % LV SV A4C 74.1 ml LV SV A2C 65.1 ml LV SV BP 72.4 ml LV CO A4C 5.2 L/min LV CO A2C 4.9 L/min LV CO BP 5.1 L/min HR A4C 70.18 BPM HR A2C 75.80 BPM LV EDV Index (BP) LA Volume LA Length A4C 5.0 cm LA Length A2C 5.1 cm LA Area A4C s 15.62 cm2 LA Area A2C s 16.47 cm2 LA Vol A4C A-L 41.19 mL LA Vol A2C A-L 44.87 mL LA Vol Biplane A-L 43.4 mL LA Vol/BSA A4C A-L LA Vol/BSA A2C A-L LA Vol/BSA BP A-L 22.5 mL/m2 LA Vol A4C MOD 38.9 mL LA Vol A2C MOD 41.6 mL LA Vol BP MOD 40.5 mL RA Volume RA Area A4C 11.5 cm2 RA ESV A4C (A-L) 28.2mL RA Vol/BSA A4C A-L RA Length A4C 4.0 cm RA ESV A4C (MOD) 27.2mL LV Diastology MV E' medial 0.057 (>0.07 m/s) MV E Vmax 0.94 (0.4-1.3 m/s) MV E/E' MED 16.64 (<14) MV A Vmax 1.25 (0.4-1.3 m/s) MV E' lateral 0.082 (>0.1 m/s) E/A Ratio 0.8 MV E/E' LAT 11.45 (<14) MV E' Average 0.070 m/s MV E/E'(average) 13.56 Aortic Valve AoV Vmax 1.50 m/s LVOT Vmax 1.12 m/s AoV Peak Grad 9.0 mmHg LVOT Peak Grad 5.0 mmHg AoV Area (Vmax) 2.18 cm2 LVOT VTI 0.238 m AoV VTI 0.351 m LVOT Mean Grad 2.5 mmHg AoV Mean Jerson. 1.00 m/s LVOT SV 69.59 mL AoV Mean Grad 4.6 mmHg LVOT Diam s 1.90 cm AoV Area (VTI) 1.98 cm2 AV Regurg Peak Gr. 8.95 mmHg Velocity Ratio 0.75 Mitral Valve MV DT 195 (160-240 msec) MV Vmax TIPS 1.38 m/s MV Mean Grad 4.1 (<2mmHg) MV VTI 0.408 m Pulmonary Valve PV Vmax 1.33 (0.5-1.5 m/s) RVOT Vmax 1.11 m/s PV Peak Grad 7.1 mmHg RVOT Peak Gr. 4.9 mmHg PV Mean Jerson 0.86 m/s RVOT VTI 0.236 m PV Mean Grad 3.6 mmHg RVOT Mean Gr. 3.0 mmHg Tricuspid Valve RA Pressure 3.00 mmHg TR Vmax 2.76 m/s TV S' 0.23 m/s TR Peak Grad 30.5 mmHg RVSP (TR) 33.6 mmHg
== END 2024-05-07 02:22 ==
LOC: DI 02:02
PROVIDERS: PCP Nurse Practitioner Family; Visit Provider Nurse Practitioner Family
DX: Z78.0 Asymptomatic menopausal state (principal); R01.1 Cardiac murmur, unspecified; M85.852 Other specified disorders of bone density and structure, left thigh; M85.88 Other specified disorders of bone density and structure, other site
CPT/HCPCS: 77080; 93306

== ENCOUNTER 2024-07-13 15:16 | Outpatient (CLI) | payer MEDICARE, SELFPAY ==
--- NOTE | 2024-07-13 09:30 | DI.RAD_ITS ---
Exam(s) XR KNEE RT 2V AP,LAT EXAM: XR KNEE RT 2V AP,LAT CLINICAL HISTORY: ANNUAL F/U R TKA. TECHNIQUE: 2D digital imaging was performed. Two images were obtained. AP and lateral views were ob tained. COMPARISON: CR XR KNEE RT 1V from 06/28/2023 CR XR KNEE RT 1V from 07/25/2023 FINDINGS: BONES: There are stable post operative changes of a right total knee replacement present. No fractur e or dislocation. JOINTS: The orthopedic hardware is in good position. No evidence of hardware loosening. There is a small joint effusion. SOFT TISSUE: Normal. IMPRESSION: Small joint effusion. DATA REPOSITORY: RADIATION DOSE DELIVERED:
== END 2024-07-13 15:17 | disposition home or self-care (01) ==
LOC: DIORS 15:18
PROVIDERS: PCP Nurse Practitioner Family; Visit Provider Student in an Organized Health Care Education/Training Program
DX: Z47.1 Aftercare following joint replacement surgery (principal); T81.31XD Disruption of external operation (surgical) wound, not elsewhere classified, subsequent encounter; Z96.651 Presence of right artificial knee joint
CPT/HCPCS: 99213; 73560

== ENCOUNTER → 2025-01-11 13:04 | Outpatient (BNVA) | payer MEDICARE, SELFPAY | PROVIDERS: PCP Nurse Practitioner Family; Referring Provider Nurse Practitioner Family; Visit Provider Student in an Organized Health Care Education/Training Program | DX: Z47.1 Aftercare following joint replacement surgery (principal); T81.31XA Disruption of external operation (surgical) wound, not elsewhere classified, initial encounter; Z96.651 Presence of right artificial knee joint | CPT/HCPCS: 99213 ==

== ENCOUNTER 2025-03-09 17:39 | Outpatient (REF) | payer MEDICARE, SELFPAY ==
[2025-03-09 16:41] LABS: ALT 32 U/L (14-59); AST 23 U/L (15-37); Albumin 4.0 g/dL (3.4-5.0); Alkaline Phosphatase 75 U/L (46-116); Anion Gap 8.8 mmol/L (3-11); BUN 16 mg/dL (7-18); Bilirubin, Total 0.5 mg/dL (0.2-1.0); CO2 26.2 mmol/L (21.0-32.0); Calcium 8.9 mg/dL (8.5-10.1); Calculated LDL 86 mg/dL (<100); Chloride 106 mmol/L (98-107); Cholesterol 205 mg/dL (<200); Estimated GFR 67.92 (mL/min/1.73m2); Glucose 88 mg/dL (74-106); HDL Cholesterol 109 mg/dL (>or=50); Potassium 4.3 mmol/L (3.5-5.1); Sodium 141 mmol/L (136-145); TSH (W/Ref FT4) 1.77 uIU/mL (0.36-3.74); Total Protein 6.9 g/dL (6.4-8.2); Triglyceride 54 mg/dL (<150)
[2025-03-09 16:45] LABS: Hemoglobin A1C 5.7 % (<5.7)
== END 2025-03-09 17:40 | disposition home or self-care (01) ==
LOC: NCHCN 17:39
PROVIDERS: PCP Nurse Practitioner Family; Visit Provider Nurse Practitioner Family
DX: I10 Essential (primary) hypertension (principal); R73.03 Prediabetes; E04.1 Nontoxic single thyroid nodule
CPT/HCPCS: 80053; 80061; 83036; 84443

== ENCOUNTER 2025-04-13 02:00 | Outpatient (CLI) | payer MEDICARE, SELFPAY ==
--- NOTE | 2025-04-13 | DI.MAMMO_ITS ---
Exam(s) MAMMO SCREENING EXAM: MAMMO SCREENING CLINICAL HISTORY: SCREENING, Z12.31 TECHNIQUE: Bilateral full field digital CC and MLO mammographic images were obtained with 3D tomosynthesis and utilizing computer aided detection (CAD). COMPARISON: Comparison is made with prior examinations. FINDINGS: Masses/Architectural Distortion: No suspicious masses or areas of architectural distortion are present. Microcalcifications: No suspicious pleomorphic-type are seen. Skin Thickening/Nipple Retraction: None. IMPRESSION: 1. No significant interval change with no specific features of malignancy noted. 2. Unless there is more urgent need, screening mammography is recommended, as per [employer] guidelines. BI-RADS Category 1 - Negative Breast Density - Category C - The breast are heterogeneously dense, which may obscure small masses. Breast density Category C or D implies that the patient has dense breast tissue. Dense breast tissue can make it harder to find cancer on a mammogram. Dense breast tissue is also associated with an increased risk of breast cancer. This information about the result of the mammogram report was provided to the patient to raise their awareness. Use this report when you speak with the patient about their risks for breast cancer, which includes their family history. At that time, you may recommend additional screening tests (Ultrasound or MRI) as these tests may add significant information. A negative radiographic report should not delay biopsy if a dominant or clinically suspicious mass is present. Up to ten percent of cancers are not identified on mammography. A negative report may reinforce clinical impression. Adenosis and dense breasts may obscure an underlying neoplasm. False positive reports average 6 to 10%. Patient will receive a letter notifying them of these results.
--- NOTE | 2025-04-13 08:00 | DI.US_ITS ---
Exam(s) US THYROID EXAM: US THYROID CLINICAL HISTORY: NON TOXIC UNINODULAR GOITER, E04.1. TECHNIQUE: Ultrasound thyroid performed using standard protocol. COMPARISON: US US THYROID from 05/22/2023 FINDINGS: ISTHMUS: 3 mm RIGHT LOBE: Size: 4.5 x 1.8 x 1.9 cm Echogenicity: Normal. Vascularity: Normal. Nodules: There is a stable solid hypoechoic nodule in the lower pole of the right lobe measuring 1.3 x 0.8 x 0.9 cm. The margins are smooth and there are no echogenic foci present. The findings remain consistent with a TI rads level 4 nodule. LEFT LOBE: Size: 5.3 x 1.2 x 1.5 cm Echogenicity: Normal. Vascularity: Normal. Nodules: None. OTHER FINDINGS: None. IMPRESSION: Stable right thyroid nodule. DATA REPOSITORY:
== END 2025-04-13 02:20 ==
LOC: DI 02:00
PROVIDERS: PCP Nurse Practitioner Family; Visit Provider Nurse Practitioner Family
DX: E04.1 Nontoxic single thyroid nodule (principal); Z12.31 Encounter for screening mammogram for malignant neoplasm of breast; Z98.890 Other specified postprocedural states; Z96.651 Presence of right artificial knee joint
CPT/HCPCS: 77063; 77067; 76536

== ENCOUNTER 2025-06-01 17:54 | Outpatient (REF) | payer MEDICARE, SELFPAY ==
--- NOTE | 2025-06-01 14:20 | TONSIL_PTH ---
PATIENT: Bev Villela LOC: [facility] U#:[id number] AGE/SX: 70/F ROOM: RE06/01/[address]: Chacha Jiménez : 1955 BED: DIS: 06/01/2025 SPEC #: [id number] RECD: 06/01/25 17:57 STATUS: RAMA REJose F #: [id number] SHYANNE: 06/01/25 14:[address]: Chacha Jiménez DEPT: Surgical Specimen RECD BY: Dianna Nguyen ENTERED: 06/01/25 17:58 SP TYPE: TONSIL OTHR DR: Rena Hinds Tissues: 1 - TONSIL BIOPSY Procedures: GROSS AND MICRO LEVEL 4 IMMUNOPEROXIDASE STAIN Comments: [id number]
== END 2025-06-01 17:55 | disposition home or self-care (01) ==
LOC: LBN 17:54
PROVIDERS: PCP Nurse Practitioner Family; Visit Provider Registered Nurse Maternal Newborn
DX: J35.9 Chronic disease of tonsils and adenoids, unspecified (principal)
CPT/HCPCS: 88305; 88361

== ENCOUNTER 2025-06-22 02:10 | Outpatient (CLI) | payer MEDICARE, SELFPAY ==
[2025-06-22 09:25] LABS: Estimated GFR 67.92 (mL/min/1.73m2)
[2025-06-22] MEDS: Omnipaque 350 MG/ML 100 ML BTL IJ (09:44)
[2025-06-22] MEDS: Normal Saline Flush 10 ML SYR IVP (09:44)
[2025-06-22] MEDS: Normal Saline - Diluent 50 ML VIAL IJ (09:44)
--- NOTE | 2025-06-22 09:59 | DI.CT_ITS ---
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 TECHNIQUE: Imaging Protocol: Axial computed tomography images with coronal and sagittal reformatted images were created and reviewed CONTRAST MATERIAL: Intravenous: Omnipaque 350 Contrast volume:100 ml contrast COMPARISON: No exams were available for comparison FINDINGS: Parotids: Normal. Submandibular glands: Normal. Thyroid gland: Normal. Lymph nodes: There are scattered lymph nodes seen along the level one to level three all measuring less than 8 mm in short axis diameter which are likely physiologic in nature. Carotids arteries: Mild plaque at the common carotid bulbs. No significant stenosis or dissection. Vertebral arteries: No significant stenosis or dissection. Soft tissues: There is extensive artifact in the area of the tonsils and floor of the mouth. This obscures visualization of a tonsillar mass. The adenoids are unremarkable. The epiglottis and vocal cords are within normal limits. Lungs: Images through both lung apices are unremarkable. Bones: Degenerative changes of the cervical spine. Visualized portions of the brain and orbits: Unremarkable. Sinuses and mastoids: Some mucous retention in the left maxillary sinus. IMPRESSION: Extensive artifact from dental work obscures visualization of the region of the tonsils. No mass is visualized. There are small bilateral anterior cervical chain lymph nodes without definite abnormally enlarged nodes. RADIATION DOSE DELIVERED: 250.44mGy.cm Total DLP DATA REPOSITORY: All CT scans at this facility are submitted to the National Radiology Data Registry (NRDR) Dose Index Registry (DIR) with the [employer] ([employer]). RADIATION OPTIMIZATION: All CT scans at this facility use at least one of these dose optimization techniques: automated exposure control; mA and/or kV adjustment per patient size (includes targeted exams where dose is matched to clinical indication); or iterative reconstruction.
== END 2025-06-22 02:30 ==
LOC: DI 02:10
PROVIDERS: PCP Nurse Practitioner Family; Visit Provider Registered Nurse Maternal Newborn
DX: J35.9 Chronic disease of tonsils and adenoids, unspecified (principal); C44.90 Unspecified malignant neoplasm of skin, unspecified; B97.7 Papillomavirus as the cause of diseases classified elsewhere
CPT/HCPCS: 70491; 82565; J3490